=== PATIENT | male | born 1955 | race Caucasian/White ===

== ENCOUNTER 2021-11-21 16:03 | Emergency (ER) | payer MEDICARE, SELFPAY ==
[2021-11-21] VITALS (18 sets, daily range): BP systolic 146–181; BP diastolic 62–94; PULSE 66–80; RESP 13–25; TEMP 36.4; O2SAT 91–98
--- NOTE | ~2021-11-21 | CT_ITS ---
EXAMINATION: CT cervical spine wo con DATE: 11/21/2021 17:26 INDICATION: Fall. Neck injury. TECHNIQUE: Computed tomography (CT) of the cervical spine was performed without intravenous contrast. Automated exposure control and iterative reconstruction technique were employed. Exam dose: 503.35 mGy-cm total exam DLP. COMPARISON: 11/28/2008 cervical spine FINDINGS: Some mastoid effusions are noted on the right. Normally developed and aerated left mastoid air cells. There is reversal cervical curvature which may be due to muscle spasm. C1 and C2 are normally aligned and the odontoid process is intact. No fracture or dislocation or lock ed facet or prevertebral soft tissue swelling of the cervical spine. Mild degenerative disc disease at C2-3 and C3-4. Severe degenerative disc disease at C4-5, C5-6 and C6-7. Prominent bullous emphysema is noted at the lung apices. Bilateral apical fibrocalcific scarring.. IMPRESSION: Reversal cervical curvature which may be due to muscle spasm Multilevel degenerative disc disease, severe at C4-5, C5-6 and C6-7 Prominent bullous emphysema and fibrocalcific scarring is noted at the lung apices. Reviewed, dictated and finalized at [facility]. Reviewed, dictated and finalized at location B. IMPRESSION: Reversal cervical curvature which may be due to muscle spasm Multilevel degenerative disc disease, severe at C4-5, C5-6 and C6-7 Prominent bullous emphysema and fibrocalcific scarring is noted at the lung api idalia.
--- NOTE | ~2021-11-21 | CT_ITS ---
EXAMINATION: CT diagnostic chest wo con DATE: 11/21/2021 17:26 INDICATION: There is a density of right upper thorax reported on 11/21/2021 chest radiograph TECHNIQUE: Computed tomography (CT) of the chest was performed without intravenous contrast. Automate d exposure control and iterative reconstruction technique were employed. Exam dose: 395.23 mGy-cm to martinez exam DLP. COMPARISON: 11/21/2021 portable AP chest 11/28/2008 portable AP chest FINDINGS: There is prominent posterior right upper lobe irregular soft tissue thickening correspondin g to the abnormal density noted on the AP chest 11/21/2021. This irregular prominent asymmetric pleural-based soft tissue thickening measures almost 7 cm transverse dimension, up to approximately 2 cm anteroposterior dimension and is situated subjacen t to the right thoracotomy posterior fifth rib resection site. Differential diagnosis includes scarri ng versus pulmonary or pleural malignancy. Scarring is favored, as there is some calcification along the anterior margin of this soft tissue thickening. PET/CT scan is recommended. There is severe bullous emphysema of both lungs. There is fibrocalcific scarring at both lung apices. No pulmonary infiltrate or consolidation or other suspicious pulmonary pleural mass lesion is noted. Calcified left lower lobe pulmonary granulomas and calcified left hilar nodes, consistent with old pu lmonary granulomatous disease. Status post right upper lobectomy. Normal heart size. Coronary artery calcifications. No pericardial effusion. There is extensive thoracic aortic as well as great vessel calcifications. Thoracic aortic ectasia. T here is prominent calcification of the abdominal aorta and superior mesenteric and renal arteries. Numerous calcified splenic granulomas. Normal morphology of the adrenal glands. IMPRESSION: Prominent irregular asymmetric pleural-based soft tissue density at the posterior right u pper chest subjacent to right thoracotomy surgical site. Differential diagnosis includes scarring joni imer less likely pulmonary or pleural malignancy. PET/CT scan is recommended for further evaluation Status post right upper lobectomy Severe bullous emphysema Bilateral fibrocalcific apical scarring Aortic ectasia and calcification Reviewed, dictated and finalized at [facility]. Reviewed, dictated and finalized at location B. IMPRESSION: Prominent irregular asymmetric pleural-based soft tissue density at the posterior right upper chest subjacent to right thoracotomy surgical site. Differential diagnosis includes scarring versus less likely pulmonary or pleura l malignancy. PET/CT scan is recommended for further evaluation Status post right upper lobectomy Severe bullous emphysema Bilateral fibrocalcific apical scarring Aortic ectasia and calcification
--- NOTE | ~2021-11-21 | CT_ITS ---
CT OF pelvis EXAMINATION: CT pelvis wo con DATE: 11/21/2021 17:27 INDICATION: TECHNIQUE: Computed tomography (CT) of the pelvis was performed without intravenous contrast. Automat ed exposure control and iterative reconstruction technique were employed. The dose-length product was 249.14 mGy-cm. COMPARISON: X-ray right hip 11/21/2021, x-ray pelvis 11/28/2008 FINDINGS: Limitations: None Bones: Decreased bone mineral density. No fracture or dislocation. There are no erosive or destructiv e bony lesions. Soft Tissues:Extensive atherosclerotic calcifications. Diverticulosis without diverticulitis. No pelv ic lymphadenopathy Fluid: No significant fluid within the joint capsule or surrounding bursal spaces. IMPRESSION: No CT evidence of acute osseous fracture or dislocation in the pelvis or hips. Reviewed, dictated and finalized at location K.
--- NOTE | ~2021-11-21 | CT_ITS ---
EXAMINATION: CT brain wo con DATE: 11/21/2021 17:25 INDICATION: Head injury TECHNIQUE: Computed tomography (CT) of the head was performed without intravenous contrast. The mA wa s adjusted according to patient size. Iterative reconstruction technique was employed. Exam dose: 60 5.33 mGy-cm total exam DLP. COMPARISON: 11/28/2018 CT brain FINDINGS: Vertebral, basilar and carotid siphon internal carotid artery calcifications. There is nons pecific diminished attenuation of the cerebral white matter, likely due to chronic small vessel ische manohar changes. Chronic lacunar infarcts of right basal ganglia and erickson radiata, chronic, present on 11/28/2008. Ch ronic lacunar infarct and anterior limb of left internal capsule, not present on 11/28/2008. Moderate cerebral and cerebellar volume loss. Caval septum pellucidum and cavum birdie J, anatomic va riants. No intracranial mass lesion or hemorrhage or recent cerebrovascular accident is detected. No midline shift or mass effect effect. No subdural or epidural hematoma. No fracture or bone destruction of the cranial vault. Paranasal sinuses are normally developed and ae rated. Left mastoid air cells are normally developed and aerated. There are some mastoid effusions on the right. IMPRESSION: Chronic bilateral lacunar infarcts; no acute intracranial finding or hemorrhage No skull fracture Reviewed, dictated and finalized at [facility]. Reviewed, dictated and finalized at location B.
--- NOTE | ~2021-11-21 | XR_ITS ---
XR hip RT 2V w AP pelvis DATE: 11/21/2021 17:04 INDICATION: Fall. TECHNIQUE: AP pelvis. AP and crosstable lateral views of right hip COMPARISON: 11/28/2008 pelvis FINDINGS: Vascular stent overlies left common iliac artery. The pubic symphysis and sacroiliac joints are intact. No pelvic fracture or bone destruction. Mild os teoarthritis at the hip joints. No fracture or dislocation, avascular necrosis or bone destruction of the right hip is evident. IMPRESSION: No pelvic fracture or right hip fracture or dislocation Reviewed, dictated and finalized at location B.
--- NOTE | ~2021-11-21 | XR_ITS ---
XR chest 1V 11/21/2021 17:04 Indication: Status post fall. Chest pain. Procedure: AP view of the chest Comparison: 11/28/2008 Findings: There is a masslike density right upper thorax. There are surgical changes consistent with partial right pneumonectomy. Heart size normal. There is atherosclerosis and ectasia of the aorta. Th e lungs are hyperinflated which is consistent with, but not diagnostic of chronic obstructive pulmona ry disease. Ill-defined infiltrates of the right mid and lower lung may represent atelectasis/scarrin g or developing pneumonia. Impression: 1: Masslike density right upper thorax. Follow-up CT chest with contrast recommended. 2: Ill-defined infiltrates of the right mid and lower lung may represent atelectasis/scarring or pneu monia. Reviewed, dictated and finalized at location A. Impression: 1: Masslike density right upper thorax. Follow-up CT chest with contrast recomm ended. 2: Ill-defined infiltrates of the right mid and lower lung may represent atelec tasis/scarring or pneumonia.
--- NOTE | 2021-11-21 16:27 | ED.LOWEXIN ---
HPI - Extremity Injury (Lower) General Chief Complaint: Extremity Injury, Lower Stated Complaint: GLF, hip injury Time Seen by Provider: 11/21/21 16:03 History of Present Illness HPI Narrative: pt here after falling trying to get scooter set up says due to right leg slower from previous stroke, says hit head and neck pain and right hip pain but no new neuro chagnes/loc/nv/d/cp/sob/abd pain or urine issues Related Data Home Medications Medication Instructions Recorded Confirmed clonazepam 0.5 mg tablet mg 11/21/21 gabapentin 300 mg capsule mg 11/21/21 lisinopril 5 mg tablet mg 11/21/21 metoprolol tartrate 25 mg tablet mg 11/21/21 sertraline 100 mg tablet mg 11/21/21 simvastatin 20 mg tablet mg 11/21/21 tramadol 50 mg tablet mg 11/21/21 trazodone 50 mg tablet mg 11/21/21 11/21/21 Allergies Allergy/AdvReac Type Severity Reaction Status Date / Time atorvastatin Allergy Mild Swelling Verified 11/21/21 16:35 Review of Systems Constitutional: Comments: CONSTITUTIONAL: Denies fever, chills, or sweats. no loc EYES: Denies visual changes, redness, or discharge. ENT: Denies rhinorrhea, congestion, sore throat, or otalgia. CARDIOVASCULAR: Denies chest pain, palpitations, or edema. RESPIRATORY: Denies cough or dyspnea. GASTROINTESTINAL: Denies abdominal pain, nausea, vomiting, or diarrhea. GENITOURINARY: Denies dysuria or hematuria. SKIN: Denies rash or itching. MUSCULOSKELETAL: Denies back pain, has joint pain right hip and head and neck pain post groung level fall NEUROLOGIC: Denies headache, numbness, or weakness. PSYCHIATRIC: Denies anxiety or depression. Exam Const: Other: APPEARANCE: Well appearing, no pain in distress, well-nourished. Head normocephalic atraumtaic. no s/s swelling says hit head right side EYES: PERRLA/EOMI, conjunctivae very clear. NOSE: Normal no drainage EARS:TMS clear Mariely [place], with good light reflex. THROAT: Pharynx clear, no exudate. NECK: Supple. No adenopathy, no masses. difuse pain on palpation RESPIRATORY: Airway patent, repsirations nonlabored. Clear to auscultation bilaterally, no rales, rhonchi, wheezing. CARDIOVASCULAR: Regular rate and rhythm without murmurs rubs or gallops. ABDOMINAL: Soft, nontender, nondistended, no hepatosplenomegally MUSCULOSKELETAl: no back pain has right hip shortening and rotation and pain to palpation movement right hip no other joint deformities. Strenght/ROM intact minus old right le stroke deficit, No edema, No calf tenderness. NEURO: Alert. Cranial nerves II through XII intact. Good gait. Good coordination SKIN:: Warm, dry. Normal Color PSYCHIATRIC: Normal affect/mood, normal interaction with parents. Course Vital Signs Vital signs: Vital Signs Temperature 36.4 C L 11/21/21 16:08 Pulse Rate 80 11/21/21 16:08 Respiratory Rate 18 11/21/21 16:08 Blood Pressure 163/94 H 11/21/21 16:08 Pulse Oximetry 96 11/21/21 16:08 Oxygen Delivery Room Air 11/21/21 16:08 Temperature 36.4 C L 11/21/21 16:08 Pulse Rate 71 11/21/21 18:09 Respiratory Rate 18 11/21/21 18:09 Blood Pressure 167/70 H 11/21/21 18:09 Pulse Oximetry 98 11/21/21 18:09 Oxygen Delivery Room Air 11/21/21 16:08 MDM - Extremity Injury (Lower) Lab Data Result diagrams: 11/21/21 16:43 11/21/21 16:43 Labs: Lab Results 11/21/21 11/21/21 11/21/21 Range/Units 16:43 16:43 16:43 WBC 10.1 H (4.5-10.0) K/mm3 RBC 4.51 L (4.6-6.20) M/mm3 Hgb 13.2 L (14.0-18.0) g/dL Hct 40.2 L (42.0-52.0) % MCV 89.1 (80-100) fl MCH 29.3 (26-34) pg MCHC 32.8 (32-36) g/dl RDW 12.4 (11.5-14.5) % Plt Count 209 (150-375) k/mm3 MPV 11.1 H (7.4-10.4) fl Immature Gran % (Auto) 0.3 (0-0.5) % Neut % (Auto) 73.3 H (45.5-73.1) % Lymph % (Auto) 17.8 L (18.3-44.2) % [place] % (Auto) 7.0 (2.6-8.5) % Eos % (Auto) 0.9 (0-4.4) % Baso % (Auto) 0.7 (0.2-1.2) % Lymph # (Auto) 1.80 (0
--- NOTE | 2021-11-21 16:32 | ECG_ITS ---
Measurements Intervals [place] Rate: 67 P: 45 NM: 145 QRS: 11 QRSD: 90 T: 68 QT: 415 QTc: 439 Interpretive Statements SINUS RHYTHM MINOR NONSPECIFIC ST CHANGES NO PREVIOUS ECG AVAILABLE FOR COMPARISON Electronically Signed On 11-22-2021 18:11:07 CDT by Mary Bryant M.D.
[2021-11-21] MEDS: fentaNYL CITRATE INJ (*CRX) 100 MCG/2 ML VIAL 50 MCG IV PUSH (16:42)
[2021-11-21] MEDS: ONDANSETRON INJ 4 MG/2 ML VIAL IV PUSH (16:43)
[2021-11-21 16:50] LABS: Basophils Absolute Auto 0.1 K/mm3 (0.0-0.1); Basophils Percent Auto 0.7 % (0.2-1.2); Eosinophils Absolute Auto 0.1 K/mm3 (0-0.3); Eosinophils Percent Auto 0.9 % (0-4.4); Hematocrit 40.2 % (42.0-52.0); Hemoglobin 13.2 g/dL (14.0-18.0); Immature Granulocyte Absolute 0.03 K/mm3 (0.00-0.031); Immature Granulocyte Percent A 0.3 % (0-0.5); Lymphocytes Percent Auto 17.8 % (18.3-44.2); Mean Corpuscular HGB Conc 32.8 g/dl (32-36); Mean Corpuscular Hemoglobin 29.3 pg (26-34); Mean Corpuscular Volume 89.1 fl (80-100); Mean Platelet Volume 11.1 fl (7.4-10.4); Monocytes Absolute Auto 0.7 K/mm3 (0.1-0.6); Neutrophils Absolute Auto 7.4 K/mm3 (1.3-6.7); Neutrophils Percent Auto 73.3 % (45.5-73.1); Platelet Count Result 209 k/mm3 (150-375); Red Blood Count 4.51 M/mm3 (4.6-6.20); Red Cell Distribution Width 12.4 % (11.5-14.5); White Blood Count 10.1 K/mm3 (4.5-10.0)
[2021-11-21 16:59] LABS: INR 1.1
[2021-11-21 17:00] LABS: Partial Thromboplastin Time 29.7 SECONDS (22.3-36.8)
[2021-11-21 17:02] LABS: Alanine Aminotransferase 18 U/L (6-50); Albumin Level 4.3 g/dL (3.5-5.1); Alkaline Phosphatase 69 U/L (38-126); Anion Gap 7 mmol/L (8-16); Aspartate Amino Transferase 30 U/L (17-59); Bilirubin,Total 0.7 mg/dL (0.2-1.3); Blood Urea Nitrogen 21 mg/dL (9-20); Calcium 9.4 mg/dL (8.4-10.2); Carbon Dioxide 34 mmol/L (22-30); Chloride 95 mmol/L (98-107); Estimated CRCL calculation 76 ml/min; Estimated Glomerular Filt Rate > 60; Glucose 100 mg/dL (65-110); Potassium 3.6 mmol/L (3.4-5.0); Sodium 136 mmol/L (137-145)
--- NOTE | 2021-11-21 17:03 | PC.NURSE ---
Pt in CT at this time
[2021-11-21] MEDS: cefTRIAXone 2 GM in SODIUM CHLORIDE 0.9% IV 100 ML 200 ML IVPB (17:33)
[2021-11-21 18:13] LABS: SARS-CoV-2 RNA PCR Negative
--- NOTE | 2021-11-21 18:14 | PC.NURSE ---
Dr. Anderson wants to stop the azithromycin at this time since CT was negative
== END 2021-11-21 19:01 | disposition home or self-care (01) ==
PROVIDERS: Emergency Provider Emergency Medicine; PCP Family Medicine
DX: S09.90XA Unspecified injury of head, initial encounter (principal); S79.911A Unspecified injury of right hip, initial encounter; R91.8 Other nonspecific abnormal finding of lung field; Z20.822 Contact with and (suspected) exposure to COVID-19; I69.398 Other sequelae of cerebral infarction; M50.321 Other cervical disc degeneration at C4-C5 level; Z90.2 Acquired absence of lung [part of]; J43.9 Emphysema, unspecified; I77.819 Aortic ectasia, unspecified site; I70.0 Atherosclerosis of aorta; W01.0XXA Fall on same level from slipping, tripping and stumbling without subsequent striking against object, initial encounter
CPT/HCPCS: 36415; 70450; 71045; 71250; 72125; 72192; 73502; 80053; 85025; 85610; 85730; 86850; 86900; 86901; 93005; 96365; 96375; 99284; 99285; C9803; J0456; J0696; J2405; J3010; U0003; U0005

== ENCOUNTER 2022-02-24 15:14 | Inpatient (IN) | payer MEDICARE, SELFPAY ==
[2022-02-24] VITALS (9 sets, daily range): BP systolic 148–184; BP diastolic 63–82; PULSE 76–105; RESP 14–28; TEMP 36.7–37.1; O2SAT 96–100; BMI 20.6
--- NOTE | ~2022-02-24 | XR_ITS ---
EXAMINATION: XR barium swallow modified DATE: 03/01/2022 09:10 INDICATION: Aspiration. TECHNIQUE: The patient was given barium-containing material of multiple consistencies to swallow by t he speech pathologist while I performed fluoroscopy. Fluoroscopy exposure time was 2.0 minutes. The n umber of fluoroscopy images saved to the PACS was 1. Dose-area product was 1.482 Gy-cm^2. FINDINGS: There is reduced laryngeal elevation. There is trace penetration of uncontrolled thin liquids. IMPRESSION: 1. Trace penetration of uncontrolled thin liquids. 2. Please refer to the speech therapy report for recommendations. Reviewed, dictated and finalized at location A. E FIGHTER
--- NOTE | ~2022-02-24 | XR_ITS ---
XR chest 2V DATE: 02/24/2022 17:20 INDICATION: Shortness of breath, hemoptysis. History of COPD. TECHNIQUE: AP and lateral views COMPARISON: 11/21/2021 AP chest 11/21/2021 CT FINDINGS: There is bullous emphysema. There is prominent patchy consolidating infiltrate in the right mid and lower lung zones. There is a Ill-defined soft tissue density overlying the right upper lung, which may be due to pulmonary and/or pleural scarring or malignancy. Normal heart size. There is aortic calcification and tortuosity. Central pulmonary arteries are prominent, suggesting pulmonary hypertension. IMPRESSION: Bilateral patchy consolidating infiltrate of right mid and lower lung zone, suggesting pn eumonia or aspiration pneumonitis Ill-defined soft tissue density overlying right upper lung, which may be due to pulmonary or pleural scarring or malignancy Bullous emphysema Reviewed, dictated and finalized at location A. REL PATTERN MAKER IMPRESSION: Bilateral patchy consolidating infiltrate of right mid and lower lillie ng zone, suggesting pneumonia or aspiration pneumonitis Ill-defined soft tissue density overlying right upper lung, which may be due to pulmonary or pleural scarring or malignancy Bullous emphysema
--- NOTE | ~2022-02-24 | XR_ITS ---
EXAMINATION: XR chest 2V DATE: 02/27/2022 07:59 INDICATION: Hemoptysis. TECHNIQUE: Frontal and lateral views of the chest were obtained. COMPARISON: Chest 2 views 02/24/2022, chest CT 02/25/2022 FINDINGS: There is volume loss of right hemithorax with surgical changes at the hilum, consistent wit h right upper lobectomy. There are lucencies in the lungs, consistent with emphysema. There are airsp maria elena opacities in right lower lobe. There is a small right pleural effusion. No pneumothorax. The hear t size is normal. There is calcified atherosclerosis of the aorta, which is tortuous. IMPRESSION: 1. Mildly worsened airspace opacities in right lower lobe, consistent with pneumonia. 2. Small right pleural effusion. 3. Emphysema. 4. Right upper lobectomy. Reviewed, dictated and finalized at location [facility]. ICATIONS ENGINEER IMPRESSION: 1. Mildly worsened airspace opacities in right lower lobe, consistent with pneu monia. 2. Small right pleural effusion. 3. Emphysema. 4. Right upper lobectomy.
--- NOTE | ~2022-02-24 | CT_ITS ---
EXAMINATION: CTA chest PE protocol DATE: 02/25/2022 13:34 INDICATION: Shortness of breath TECHNIQUE: Computed tomography angiography (CTA) of the chest was performed with 100 mL Omnipaque-350 intravenous contrast timed to evaluate the pulmonary arteries. Coronal maximum intensity projection 3D-reconstructions were created by the technologist. Automated exposure control and iterative reconst ruction technique were employed. Exam dose: 341.61 mGy-cm total exam DLP. COMPARISON: 03/13/2022 AP and lateral chest 11/21/2021 CT chest FINDINGS: There is diagnostic contrast enhancement of the pulmonary arteries and no evidence of pulmo nary embolism. No thoracic aortic aneurysm. There is extensive atherosclerotic calcification of the thoracic aorta. No evidence of thoracic aortic dissection. No hilar or mediastinal mass lesion or lymphadenopathy. Heart size is within normal limits. There is left ventricular muscular hypertrophy. Coronary artery c alcifications. No pericardial or pleural effusion. There is severe bullous emphysema of the lungs. There is extensive patchy consolidation of the right lower lobe since 11/21/2021 consistent with right lower lobe pneumonia. Aspiration pneumonia would be a additional consideration. There is persistent posterior mid to upper pulmonary and pleural irregular soft tissue thickening; di ffusion diagnosis includes pulmonary pleural scarring versus pulmonary or pleural malignancy. There i s postoperative change in this region including partial resection of the lung and postthoracotomy guy nge of the posterior right fifth rib.. No suspicious osteolytic or osteoblastic lesions are noted. IMPRESSION: New patchy consolidation in the right lower lobe, likely due to pneumonia. Differential diagnosis includes aspiration pneumonia Irregular pulmonary and pleural SOFT tissue thickening subjacent to postoperative change of the right upper lobe and adjacent thoracotomy change of the posterior right fifth rib. The findings are likely chronic pulmonary and pleural scarring. Pulmonary or pleural malignancy are not excluded. Consider P ET/CT imaging Severe bullous emphysema Reviewed, dictated and finalized at [facility]. Reviewed, dictated and finalized at location [facility]. ING STATION ATTENDANT IMPRESSION: New patchy consolidation in the right lower lobe, likely due to pn eumonia. 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 The findings are likely chronic pulmonary and pleural scar ring. Pulmonary or pleural malignancy are not excluded. Consider PET/CT imaging Severe bullous emphysema
--- NOTE | ~2022-02-24 | XR_ITS ---
EXAMINATION: XR chest 1V portable DATE: 02/28/2022 09:39 INDICATION: Pneumonia. Hemoptysis. TECHNIQUE: A single frontal view of the chest was obtained on 2 radiographs. COMPARISON: Chest 2 views 02/27/2022 FINDINGS: There is volume loss of right hemithorax from right upper lobectomy. There are airspace opa cities in all right lung zones. There are lucencies in the lungs, consistent with emphysema. No pleur al effusion or pneumothorax. The heart size is normal. IMPRESSION: 1. Stable airspace opacities in all right lung zones, consistent with pneumonia. 2. Emphysema. 3. Right upper lobectomy. Reviewed, dictated and finalized at location [facility]. SUPPORT SPECIALIST IMPRESSION: 1. Stable airspace opacities in all right lung zones, consistent with pneumonia . 2. Emphysema. 3. Right upper lobectomy.
[2022-02-24 15:40] LABS: Basophils Percent Auto 0.2 % (0.2-1.2); Eosinophils Percent Auto 0.1 % (0-4.4); Hematocrit 38.2 % (42.0-52.0); Hemoglobin 12.8 g/dL (14.0-18.0); Immature Granulocyte Absolute 0.07 K/mm3 (0.00-0.031); Immature Granulocyte Percent A 0.4 % (0-0.5); Lymphocytes Absolute Auto 2.85 K/mm3 (0.9-3.2); Lymphocytes Percent Auto 17.4 % (18.3-44.2); Mean Corpuscular HGB Conc 33.5 g/dl (32-36); Mean Corpuscular Volume 89.5 fl (80-100); Mean Platelet Volume 11.4 fl (7.4-10.4); Monocytes Absolute Auto 1.3 K/mm3 (0.1-0.6); Monocytes Percent Auto 8.2 % (2.6-8.5); Neutrophils Absolute Auto 12.1 K/mm3 (1.3-6.7); Neutrophils Percent Auto 73.7 % (45.5-73.1); Platelet Count Result 230 k/mm3 (150-375); Red Blood Count 4.27 M/mm3 (4.6-6.20); Red Cell Distribution Width 12.5 % (11.5-14.5); White Blood Count 16.4 K/mm3 (4.5-10.0)
[2022-02-24 15:51] LABS: INR 1.1; Prothrombin Time 13.4 Seconds (11.1-14.7)
[2022-02-24 15:52] LABS: Alanine Aminotransferase 17 U/L (6-50); Albumin Level 4.6 g/dL (3.5-5.1); Alkaline Phosphatase 74 U/L (38-126); Anion Gap 15 mmol/L (8-16); Aspartate Amino Transferase 22 U/L (17-59); Bilirubin,Total 1.2 mg/dL (0.2-1.3); Blood Urea Nitrogen 21 mg/dL (9-20); Calcium 9.1 mg/dL (8.4-10.2); Carbon Dioxide 33 mmol/L (22-30); Chloride 93 mmol/L (98-107); Estimated CRCL calculation 48 ml/min; Estimated Glomerular Filt Rate 47; Glucose 115 mg/dL (65-110); Partial Thromboplastin Time 33.4 SECONDS (22.3-36.8); Sodium 141 mmol/L (137-145)
[2022-02-24] MEDS: ALBUTEROL SULFATE NEB 2.5 MG/3 ML INH 15 MG INHALATION (17:18)
[2022-02-24] MEDS: IPRATROPIUM BR 0.02% INH SOLN 0.5 MG/2.5 ML VIAL 1.5 MG INHALATION (17:18)
--- NOTE | 2022-02-24 18:17 | ED.GENADULT ---
HPI - General Adult General Chief complaint: GI Bleed Stated complaint: coughing up blood Time Seen by Provider: 02/24/22 16:38 History of Present Illness HPI narrative: Patient is a 67-year-old male who presents ER with hemoptysis. Ongoing for 2 days. Bright red and becoming more frequent. No bloody nose or sinus congestion. No weight loss. Denies history of lung cancer but has had partial pneumonectomy for pneumonia years ago. Continues to smoke. He has had no fevers or chills or sweats. No large mass on previous CT in November, he did have some areas that they felt were scarring but it was recommended he have a follow-up PET scan. Related Data Home Medications Medication Instructions Recorded Confirmed clonazepam 0.5 mg tablet mg 11/21/21 gabapentin 300 mg capsule mg 11/21/21 lisinopril 5 mg tablet mg 11/21/21 metoprolol tartrate 25 mg tablet mg 11/21/21 sertraline 100 mg tablet mg 11/21/21 simvastatin 20 mg tablet mg 11/21/21 tramadol 50 mg tablet mg 11/21/21 trazodone 50 mg tablet mg 11/21/21 11/21/21 Allergies Allergy/AdvReac Type Severity Reaction Status Date / Time atorvastatin Allergy Mild Swelling Verified 11/21/21 16:35 Review of Systems Review of Systems: All systems reviewed & are unremarkable except as noted in HPI and below Constitutional: Constitutional: Denies chills and Denies fever(s) ENT: Denies nasal congestion and Denies sore throat Cardiovascular: Cardiovascular: Denies chest pain, Denies rapid heart rate and Denies radiating jaw, neck or arm pain Respiratory: Respiratory: Reports cough and Reports dyspnea Comments: Hemoptysis Gastrointestinal: Gastrointestinal: Denies abdominal pain, Denies nausea and Denies vomiting Musculoskeletal: Musculoskeletal: Denies back pain and Denies myalgias Neurologic: Denies syncope, Denies headache(s) and Denies focal weakness [facility] Past Medical History Medical History (Updated 02/24/22 @ 18:23 by Joshua Tidwell MD) Bullous emphysema History of CVA (cerebrovascular accident) Myocardial infarction Surgical History Surgical History (Updated 02/24/22 @ 18:19 by Joshua Tidwell MD) History of percutaneous coronary intervention Hx of pneumonectomy Social History Social History (Updated 11/13/22 @ 18:19 by Joshua Tidwell MD) Smoking status: Current every day smoker Exam Narrative: GENERAL: Well-appearing, well-nourished, and in no acute distress. HEAD: Normocephalic, atraumatic. EYES: PERRL and EOMI. ENT: Mucous membranes moist. CHEST: Diminished lung sounds however when he starts coughing there is wheezing and some rales worse on the right versus the left. HEART: Regular rate and rhythm. Normal peripheral pulses. ABDOMEN: Soft, nontender, nondistended. EXTREMITIES: Normal range of motion. No edema. NEURO: Alert and oriented x3. PSYCH: Normal mood and affect. Course Course Emergency Course: Admit to hospitalist service. Will start on IV antibiotics. Vital Signs Vital signs: Vital Signs Temperature 98.2 F 02/24/22 15:23 Pulse Rate 97 02/24/22 15:23 Respiratory Rate 18 02/24/22 15:23 Blood Pressure 148/63 H 02/24/22 15:23 Pulse Oximetry 97 02/24/22 15:23 Oxygen Delivery Room Air 02/24/22 15:23 Temperature 98.2 F 02/24/22 15:23 Pulse Rate 105 H 02/24/22 19:00 Respiratory Rate 24 H 02/24/22 19:00 Blood Pressure 165/77 H 02/24/22 19:00 Pulse Oximetry 96 02/24/22 19:23 Oxygen Delivery Nasal Cannula 02/24/22 19:23 Oxygen Flow Rate 3 02/24/22 19:23 Medical Decision Making Vital Signs Vital Signs: Vital Signs Temperature 98.2 F 02/24/22 15:23 Pulse Rate 97 02/24/22 15:23 Respiratory Rate 18 02/24/22 15:23 Blood Pressure 148/63 H 02/24/22 15:23 Pulse Oximetry 97 02/24/22 15:23 Oxygen Delivery Room Air 02/24/22 15:23 Temperature 98.2 F 02/24/22 15:23 Pulse Rate 105 H 02/24/22 19:00 Respiratory Rate 24 H 02/24/22 19:00 Blood
--- NOTE | 2022-02-24 18:30 | PM.IMHP ---
H&P: HPI History of Present Illness Date/Time: 02/24/22 18:30 Chief Complaint: Coughing up blood. Narrative: This is a pleasant 67-year-old male, former heavy smoker, with history of partial pneumonectomy for lung infection in 1989, bullous emphysema, coronary artery disease with remote history of stents, hypertension, hyperlipidemia, and anxiety who presented to the emergency department from home for evaluation after he began coughing up blood a couple of days ago. He has not felt well for several days with cough productive of bright red and occasionally dark red blood, wheezing, generalized weakness, and poor appetite. He has never had similar symptoms in the past and he has no known history of malignancy or TB exposure. He denies sick contacts and reports that he and his rarely leaves the home. His weight has remained stable. He denies fever, chills, sweats, headache, neck ache, sinus congestion, sore throat, epistaxis, hematemesis, vomiting, chest pain, and pleuritic pain. He was afebrile on arrival to the emergency department and vital signs have been stable; in fact his blood pressures have been running higher than what they typically run. Labs today showed an elevated white blood cell count, mild hypokalemia, and elevated BUN and creatinine from baseline. He was negative for influenza and COVID. Chest x-ray showed patchy bilateral consolidating infiltrate of the right mid and lower lung zones suggesting pneumonia or aspiration pneumonitis and an ill-defined soft tissue density overlying the right upper lung which may be due to pulmonary or pleural scarring or malignancy. Similar findings were noted on previous imaging and PET scan was recommended for further evaluation. He is being admitted in this setting for IV antibiotics and pulmonary consultation. His breathing and wheezing are a lot better after receiving a continuous hour long nebulizer though he is now anxious and tremulous. Review of Systems Review of Systems: Twelve systems were reviewed and are negative except for as per HPI. [facility] Past Medical History Medical History (Updated 02/24/22 @ 22:13 by Demetria Gillis PA-C) Bullous emphysema Cerebrovascular accident X3 with resultant right-sided weakness. Chronic pain Smokes medical marijuana. Coronary artery disease Former heavy tobacco smoker Myocardial infarction Surgical History Surgical History (Updated 02/24/22 @ 22:09 by Demetria Gillis PA-C) History of appendectomy History of cardiac catheterization (2003) History of percutaneous coronary intervention (2003) History of pneumonectomy (1989) Family History Family History Father Hypertension Chronic obstructive pulmonary disease Mother Hypertension Chronic obstructive pulmonary disease Sibling Hypertension Social History Social History (Updated 02/24/22 @ 22:10 by Demetria Gillis PA-C) Social History: Surrogate medical decision maker: Ashlee Hyde, spouse. Code status: Full code. Smoking packs per day: 3 Smoking cigarettes per day: 60.0 Years smoked: 48 Smoking pack-years: 144.00 Smoking status: Former smoker Tobacco type: cigarettes Second hand tobacco smoke exposure: Yes Smoking end date: 02/24/15 Alcohol intake: never Substance use: current Substance use type: marijuana Other substance usage details: Smokes medical marijuana for pain. Last use: 02/22/22 Lack of Transportation: No Lack of Food: Never True Current Housing: I Have Housing Concerned About Future Housing: No Difficulty Paying Gas/Electric Bills: No Difficulty Paying for Meds: No Currently Unemployed: No Education: High School Diploma/GED Difficulty w/ Childcare or Family Care: No Living arrangements: with family Additional living arrangements comments: The patient lives with his in [place]. Additional occupation/education comments: Disabled, forme
[2022-02-24 19:03] LABS: Influenza A QL RT-PCR Negative (Negative); Influenza B QL RT-PCR Negative (Negative); SARS-CoV-2 RNA PCR Negative
--- NOTE | 2022-02-24 20:57 | PC.NURSE ---
Report to [facility] Soto. Pt on 3L O2 per nc. #20 SL inserted. ABX infusing.
--- NOTE | 2022-02-24 21:08 | ADMGEN ---
This patient, Trevor Hyde, was admitted to [facility] Surg Room 303-01. Patient/family oriented to hospital policies and general routines including ID bracelet, bed and alarms, visiting hours, pain management, procedures, bathroom and other care routines, personal items, smoking policy, room service/diet, and visiting hours. Information on how to activate the Rapid Response Team has been discussed. Patient/Family are encouraged to report perceived risks to care and to ask questions if they do not understand what they are told or what they should do.
[2022-02-24] MEDS: POTASSIUM CHLORIDE 20 MEQ PACKET (FOR LIQUID) 40 MEQ PO (23:06)
[2022-02-24] MEDS: SODIUM CHLORIDE 0.9% IV 1,000 ML 75 ML IV CONT (23:07)
[2022-02-25] VITALS (13 sets, daily range): BP systolic 156–186; BP diastolic 82–90; PULSE 87–106; RESP 18–26; TEMP 36.6–37.2; O2SAT 92–97
[2022-02-25] MEDS: HYDROcodone/acetaminophen (*CRX) 5-325 MG TABLET 1 TAB PO ×2 (00:36→07:55)
[2022-02-25] MEDS: IPRATROPIUM BR 0.02% INH SOLN 0.5 MG/2.5 ML VIAL INHALATION ×4 (02:29→20:31)
[2022-02-25] MEDS: ALBUTEROL SULFATE NEB 2.5 MG/3 ML INH INHALATION ×4 (02:29→20:31)
[2022-02-25 07:16] LABS: Hematocrit 34.1 % (42.0-52.0); Hemoglobin 11.6 g/dL (14.0-18.0); Mean Corpuscular Volume 88.1 fl (80-100); Mean Platelet Volume 11.5 fl (7.4-10.4); Platelet Count Result 189 k/mm3 (150-375); Red Blood Count 3.87 M/mm3 (4.6-6.20); Red Cell Distribution Width 12.2 % (11.5-14.5); White Blood Count 13.9 K/mm3 (4.5-10.0)
[2022-02-25 07:40] LABS: Alanine Aminotransferase 16 U/L (6-50); Albumin Level 4.2 g/dL (3.5-5.1); Alkaline Phosphatase 70 U/L (38-126); Anion Gap 11 mmol/L (8-16); Aspartate Amino Transferase 21 U/L (17-59); Bilirubin,Total 1.2 mg/dL (0.2-1.3); Blood Urea Nitrogen 17 mg/dL (9-20); CRP 7.5 mg/dL (<1.0); Calcium 8.5 mg/dL (8.4-10.2); Carbon Dioxide 33 mmol/L (22-30); Chloride 96 mmol/L (98-107); Estimated CRCL calculation 76 ml/min; Estimated Glomerular Filt Rate > 60; Glucose 109 mg/dL (65-110); Magnesium 1.7 mg/dL (1.6-2.3); Sodium 140 mmol/L (137-145)
--- NOTE | 2022-02-25 08:14 | PM.IMPN ---
Progress Note: A&P Assessment and Plan (1) Hemoptysis: Code(s): R04.2 - Hemoptysis Status: Acute Assessment and Plan: Suspect this is due to underlying pneumonia, cannot rule out malignancy versus COPD (2) Pneumonia: Code(s): J18.9 - Pneumonia, unspecified organism Status: Acute Assessment and Plan: Continue Rocephin and azithromycin, will complete 10 day course of antibiotics (3) Acute kidney injury: Code(s): N17.9 - Acute kidney failure, unspecified Status: Acute Assessment and Plan: Resolved (4) Dehydration: Code(s): E86.0 - Dehydration Status: Acute Assessment and Plan: Resolved (5) Hypokalemia: Code(s): E87.6 - Hypokalemia Status: Acute Assessment and Plan: Replete and recheck (6) Coronary artery disease: Code(s): I25.10 - Atherosclerotic heart disease of [place] coronary artery without angina pectoris Status: Acute Assessment and Plan: Stable (7) Lung mass: Code(s): R91.8 - Other nonspecific abnormal finding of lung field Status: Acute Assessment and Plan: Appreciate pulmonology consultation CTA pending (8) COPD (chronic obstructive pulmonary disease): Code(s): J44.9 - Chronic obstructive pulmonary disease, unspecified Status: Acute (9) Former heavy tobacco smoker: Code(s): Z87.891 - Personal history of nicotine dependence Status: Acute Plan DVT prophylaxis with SCDs GI prophylaxis not indicated Code status full code Subjective Date/time seen: 02/25/22 08:14 Interval history: No overnight events noted. No chest pain or shortness of breath. No nausea, vomiting or diarrhea. No fevers or chills. Admits to continued hemoptysis. Review of Systems Review of Systems: 12 point review of systems was assessed and was negative except as noted in the HPI Exam Narrative: General: No acute distress, alert and oriented per baseline HEENT: Atraumatic, normocephalic, mucous membranes moist CV: Regular rate and rhythm, S1, S2 Lungs: Clear to auscultation bilaterally, no rales or crackles noted, no wheezes, good air entry Abdomen: Soft, nontender, nondistended Extremities: Normal to inspection Skin: No rashes noted, no lesions or wounds seen Psych: Euthymic, normal affect Objective Data Vital Signs Vital Signs: Vital Signs - 24 hr 02/24/22 15:23 02/24/22 17:21 02/24/22 18:30 Temperature 98.2 F Pulse Rate 97 76 87 Respiratory Rate 18 16 17 Blood Pressure 148/63 H Pulse Oximetry 97 Oxygen Delivery Room Air Oxygen Flow Rate 02/24/22 17:00 02/24/22 18:00 02/24/22 19:00 Temperature Pulse Rate 78 82 105 H Respiratory Rate 16 14 24 H Blood Pressure 169/64 H 184/74 H 165/77 H Pulse Oximetry 100 100 98 Oxygen Delivery Oxygen Flow Rate 02/24/22 19:23 02/24/22 20:48 02/24/22 21:58 Temperature 98.1 F 98.7 F Pulse Rate 97 100 Respiratory Rate 22 H 28 H Blood Pressure 164/82 H 148/76 H Pulse Oximetry 96 97 100 Oxygen Delivery Nasal Cannula Oxygen Flow Rate 3 02/25/22 02:29 02/25/22 02:45 02/25/22 05:59 Temperature 97.8 F Pulse Rate 88 90 88 Respiratory Rate 18 20 22 H Blood Pressure 165/90 H Pulse Oximetry 96 Oxygen Delivery Oxygen Flow Rate 02/25/22 07:48 02/25/22 07:48 02/25/22 08:00 Temperature Pulse Rate 87 90 Respiratory Rate 20 20 Blood Pressure Pulse Oximetry 97 Oxygen Delivery Nasal Cannula Oxygen Flow Rate 2 Intake/Output Intake/Output: Intake & Output 02/22/22 02/23/22 02/24/22 02/25/22 23:59 23:59 23:59 23:59 Output Total 2 Balance -2 Meds/Results Medications: Active Medications Generic Name Dose Route Start Last Admin Trade Name Freq PRN Reason Stop Dose Admin Acetaminophen 650 mg 02/24/22 18:07 Acetaminophen 325 Mg Tablet PO Q4H PRN Mild Pain (1-3) or Fever Hydrocodone Bitart/Acetaminophen
[2022-02-25 09:35] LABS: D Dimer 0.58 ug/mL (<0.48)
[2022-02-25] MEDS: SODIUM CHLORIDE 0.9% IV 1,000 ML 75 ML IV CONT (11:51)
--- NOTE | 2022-02-25 13:20 | PM.CNPUL ---
Assessment and Plan Assessment and plan (1) COPD (chronic obstructive pulmonary disease): Code(s): J44.9 - Chronic obstructive pulmonary disease, unspecified Status: Acute Assessment and Plan: The patient has severe apical greater than basilar predominant panlobular emphysema on his CT scan from 11/21/2021 and is a former smoker with 120 pack years, quit 2015. currently is not wheezing and I will continue albuterol and ipratropium nebulizers Q 6 hours at this time. He is currently on room air with saturations 92%. (2) Hemoptysis: Code(s): R04.2 - Hemoptysis Status: Acute Assessment and Plan: patient with a history of COPD with severe apical greater than basilar panlobular emphysema and a 7 cm pleural based nodule -mass on 11/21/2021. He currently presents with 2 days history of an acute illness characterized by hemoptysis, shortness of breath, cough, shakes and anorexia with a leukocytosis of 16.4, a creatinine of 1.50 and infiltrate on his chest x-ray in the right mid and lower lobe area. COVID RT PCR negative, influenza swab negative. The etiology of his hemoptysis includes community-acquired pneumonia, lung cancer, COPD, pulmonary embolism. I agree with ceftriaxone and azithromycin for community-acquired pneumonia coverage. Patient has a positive D-dimer and I will obtain a CT angiogram of the chest. This will also enable us to assess his 7 cm pleural based right lung mass from 11/21/2021. The patient does have COPD but he has no wheezing and I do not feel he is in a COPD exacerbation at this time. (3) Lung mass: Code(s): R91.8 - Other nonspecific abnormal finding of lung field Status: Acute Assessment and Plan: 11/21/2021. This irregular prominent asymmetric pleural-based soft tissue thickening measures almost 7 cm transverse dimension, up to approximately 2 cm anteroposterior dimension and is situated subjacent to the right thoracotomy posterior fifth rib resection site. Differential diagnosis includes scarring versus pulmonary or pleural malignancy. Scarring is favored, as there is some calcification along the anterior margin of this soft tissue thickening. PET/CT scan is recommended. Patient has a smoking history, no history of lung cancer in his family. Will obtain a CT angiogram of the chest to reassess this lesion. Discussed with Dr. Maza, will follow with you History of Present Illness History of Present Illness Consult date: 02/25/22 Chief complaint: pneumonia,hemoptysis Narrative: 02/25/2022: This is a new pulmonary consultation for hemoptysis. 67-year-old man with a history of pneumonia status post right upper lobectomy 1989, CVA 2014 at has left him immobile, coronary artery disease status post RI and stent, hypertension, hyperlipidemia, tobacco use, 120 pack years, quit 2014 and COPD. The patient was noted to have a 7 cm transverse dimension pleural based opacity adjacent to his right thoracotomy site. On 11/21/2021. CT PET was recommended. Patient has COPD for many years. He intermittently has wheezing, he uses an electric scooter for mobility. He smoked tobacco from age [age] at 2 and half packs per day. He has no vaping or illicit drug use. He denies sample lasting, welding, asbestos work, professional painting or steel millwright. He has no current secondhand exposure but was exposed to secondhand smoke from his mother. 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 He is not on home oxygen and has no listed home inhaled medicines. Patient was in his usual state until 2 days ago when he developed cough, shortness of breath, anorexia, wheezes, shakes and hemoptysis. Symptoms progressed and he presented to the emergency department on 02/24/2022. His room air saturations were listed as 97%, had decreased breath sounds, wheezes, rale try to the greater than left and improved with nebulizers. Chest x-ray showed emphysema with a right mid and lower lung infiltr
[2022-02-25] MEDS: ASPIRIN 81 MG ENTERIC TABLET PO (16:05)
[2022-02-25] MEDS: lisinopriL 5 MG TABLET PO (16:05)
[2022-02-25] MEDS: clonazePAM (*CRX) 0.5 MG TABLET PO (16:05)
[2022-02-25] MEDS: SIMVASTATIN 20 MG TABLET PO (16:07)
[2022-02-25] MEDS: METOPROLOL TARTRATE 12.5 MG TABLET PO ×2 (16:07→21:41)
[2022-02-25] MEDS: SERTRALINE HCL 50 MG TABLET 100 MG PO (16:08)
[2022-02-25] MEDS: POTASSIUM CHLORIDE 20 MEQ TABLET 40 MEQ PO (19:28)
[2022-02-25] MEDS: POTASSIUM CHLORIDE INJ 40 MEQ in SODIUM CHLORIDE 0.9% IV 500 ML 130 MEQ IVPB (19:30)
[2022-02-25] MEDS: ACETAMINOPHEN 325 MG TABLET 650 MG PO (21:42)
[2022-02-25] MEDS: GABAPENTIN 300 MG CAPSULE PO (21:42)
[2022-02-25] MEDS: traMADol HCL (*CRX) 50 MG TABLET PO (21:43)
[2022-02-25] MEDS: traZODone HCL 50 MG TABLET PO (21:43)
[2022-02-26] VITALS (14 sets, daily range): BP systolic 127–152; BP diastolic 63–73; PULSE 71–90; RESP 14–20; TEMP 36.7–37.1; O2SAT 90–97
[2022-02-26] MEDS: traMADol HCL (*CRX) 50 MG TABLET PO ×3 (05:52→21:22)
[2022-02-26] MEDS: IPRATROPIUM BR 0.02% INH SOLN 0.5 MG/2.5 ML VIAL INHALATION ×3 (08:03→20:31)
[2022-02-26] MEDS: ALBUTEROL SULFATE NEB 2.5 MG/3 ML INH INHALATION ×3 (08:04→20:31)
[2022-02-26] MEDS: clonazePAM (*CRX) 0.5 MG TABLET PO (08:35)
[2022-02-26] MEDS: ASPIRIN 81 MG ENTERIC TABLET PO (08:36)
[2022-02-26] MEDS: SERTRALINE HCL 50 MG TABLET 100 MG PO (08:36)
[2022-02-26] MEDS: METOPROLOL TARTRATE 12.5 MG TABLET PO ×2 (08:36→20:21)
[2022-02-26] MEDS: lisinopriL 5 MG TABLET PO (08:37)
[2022-02-26] MEDS: SIMVASTATIN 20 MG TABLET PO (08:37)
[2022-02-26] MEDS: HYDROcodone/acetaminophen (*CRX) 5-325 MG TABLET 1 TAB PO ×2 (08:38→17:34)
--- NOTE | 2022-02-26 09:45 | PM.PNPUL ---
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 currently is not wheezing and I will continue albuterol and ipratropium nebulizers Q 6 hours at this time. He is currently on room air with saturations 92%. 02/26 No wheezes on albuterol and ipratropium nebulizers Q 6 hours. (2) Hemoptysis: Code(s): R04.2 - Hemoptysis Status: Acute Assessment and Plan: patient with a history of COPD with severe apical greater than basilar panlobular emphysema and a 7 cm pleural based nodule -mass on 11/21/2021. He currently presents with 2 days history of an acute illness characterized by hemoptysis, shortness of breath, cough, shakes and anorexia with a leukocytosis of 16.4, a creatinine of 1.50 and infiltrate on his chest x-ray in the right mid and lower lobe area. COVID RT PCR negative, influenza swab negative. The etiology of his hemoptysis includes community-acquired pneumonia, lung cancer, COPD, pulmonary embolism. I agree with ceftriaxone and azithromycin for community-acquired pneumonia coverage. Patient has a positive D-dimer and I will obtain a CT angiogram of the chest. This will also enable us to assess his 7 cm pleural based right lung mass from 11/21/2021. The patient does have COPD but he has no wheezing and I do not feel he is in a COPD exacerbation at this time. CT angiogram of the chest negative for PE does show pneumonia and stable soft tissue thickening next to his right upper lobe thoracotomy area. 02/26 Overall the patient feels slightly better is he was able to sleep last night and he is appetite has returned and he is eating breakfast. He says he feels 50% back to his normal. He is now on room air with saturations 92%. He continues with the same amount of cough and hemoptysis about 1 expect duration every 2 hours. His white blood cell count is 13.9, he is afebrile. Blood cultures are negative, sputum cultures mixed reji. Patient with continued hemoptysis and will change his antibiotics to cover resistant organisms as well as Pseudomonas with vancomycin, Zosyn and Levaquin. Will check coags in the morning. Will check chest x-ray in the morning. (3) Lung mass: Code(s): R91.8 - Other nonspecific abnormal finding of lung field Status: Acute Assessment and Plan: 11/21/2021. This irregular prominent asymmetric pleural-based soft tissue thickening measures almost 7 cm transverse dimension, up to approximately 2 cm anteroposterior dimension and is situated subjacent to the right thoracotomy posterior fifth rib resection site. Differential diagnosis includes scarring versus pulmonary or pleural malignancy. Scarring is favored, as there is some calcification along the anterior margin of this soft tissue thickening. PET/CT scan is recommended. Patient has a smoking history, no history of lung cancer in his family. Will obtain a CT angiogram of the chest to reassess this lesion. 02/26 CT scan yesterday shows continued abnormality next to his right thoracotomy resection which is stable since 11/21. Will Need outpatient short-term follow-up Ct scan and or PET-CT. Discussed with Dr. Maza, will follow with you Subjective Date/time seen: 02/26/22 09:45 Interval history: 02/25/2022:? This is a new pulmonary consultation for hemoptysis.? 67-year-old man with a history of pneumonia status post right upper lobectomy 1989, CVA 2014 at has left him immobile, coronary artery disease status post [place] and stent, hypertension, hyperlipidemia,? tobacco use, 120 pack years, quit 2014 and COPD. ? ? The patient was noted to have a 7 cm transverse dimension pleural based o
--- NOTE | 2022-02-26 10:01 | PM.IMPN ---
Progress Note: A&P Assessment and Plan (1) Hemoptysis: Code(s): R04.2 - Hemoptysis Status: Acute Assessment and Plan: Suspect this is due to underlying pneumonia, cannot rule out malignancy versus COPD Worsening, concern for pulmonary hemorrhage is high, if hemoptysis does not improve on escalated antibiotics, will need to arrange transfer to higher level of care Check coags, monitor hemoglobin (2) Pneumonia: Code(s): J18.9 - Pneumonia, unspecified organism Status: Acute Assessment and Plan: Symptoms worsening, will broaden coverage to IV vancomycin, Zosyn and Levaquin for double Pseudomonas coverage, discontinue Rocephin and azithromycin (3) Acute kidney injury: Code(s): N17.9 - Acute kidney failure, unspecified Status: Acute Assessment and Plan: Resolved (4) Dehydration: Code(s): E86.0 - Dehydration Status: Acute Assessment and Plan: Resolved (5) Hypokalemia: Code(s): E87.6 - Hypokalemia Status: Acute Assessment and Plan: Replete and recheck (6) Coronary artery disease: Code(s): I25.10 - Atherosclerotic heart disease of [place] coronary artery without angina pectoris Status: Acute Assessment and Plan: Stable (7) Lung mass: Code(s): R91.8 - Other nonspecific abnormal finding of lung field Status: Acute Assessment and Plan: Appreciate pulmonology consultation CTA showed right lower lobe pneumonia, severe bolus emphysema, cannot rule out malignancy (8) COPD (chronic obstructive pulmonary disease): Code(s): J44.9 - Chronic obstructive pulmonary disease, unspecified Status: Acute (9) Former heavy tobacco smoker: Code(s): Z87.891 - Personal history of nicotine dependence Status: Acute Plan DVT prophylaxis with SCDs GI prophylaxis not indicated Code status full code Subjective Date/time seen: 02/26/22 10:01 Interval history: No overnight events noted. No chest pain or shortness of breath. No nausea, vomiting or diarrhea. No fevers or chills. Still coughing up blood, appears about the same as yesterday per patient report. Review of Systems Review of Systems: 12 point review of systems was assessed and was negative except as noted in the HPI Exam Narrative: General: No acute distress, alert and oriented per baseline HEENT: Atraumatic, normocephalic, mucous membranes moist CV: Regular rate and rhythm, S1, S2 Lungs: Clear to auscultation bilaterally, no rales or crackles noted, no wheezes, good air entry Abdomen: Soft, nontender, nondistended Extremities: Normal to inspection Skin: No rashes noted, no lesions or wounds seen Psych: Euthymic, normal affect Objective Data Vital Signs Vital Signs: Vital Signs - 24 hr 02/25/22 11:47 02/25/22 14:32 02/25/22 16:07 Temperature Pulse Rate 95 106 H Respiratory Rate 20 Blood Pressure Pulse Oximetry 92 Oxygen Delivery Room Air Oxygen Flow Rate 02/25/22 14:00 02/25/22 20:32 02/25/22 20:32 Temperature 99 F Pulse Rate 101 H 104 H 104 H Respiratory Rate 26 H 20 Blood Pressure 186/83 H Pulse Oximetry 92 96 Oxygen Delivery Nasal Cannula Oxygen Flow Rate 3 02/25/22 20:39 02/25/22 21:41 02/25/22 22:00 Temperature 98.8 F Pulse Rate 97 104 H 104 H Respiratory Rate 20 18 Blood Pressure 156/82 H Pulse Oximetry 97 Oxygen Delivery Oxygen Flow Rate 02/26/22 06:00 02/26/22 08:05 02/26/22 08:06 Temperature 98.0 F Pulse Rate 72 71 Respiratory Rate 16 18 Blood Pressure 152/66 H Pulse Oximetry 97 92 Oxygen Delivery Room Air Oxygen Flow Rate 02/26/22 08:18 02/26/22 08:36 Temperature Pulse Rate 75 78 Respiratory Rate 18 Blood Pressure Pulse Oximetry Oxygen Delivery Oxygen Flow Rate Intake/Output Intake/Output: Intake & Output 02/23/22 02/24/22 02/25/22 02/26/22 23:59 23:59 23:59 23:59 Intake Total 2
[2022-02-26 10:21] LABS: Alanine Aminotransferase 17 U/L (6-50); Alkaline Phosphatase 70 U/L (38-126); Anion Gap 11 mmol/L (8-16); Aspartate Amino Transferase 29 U/L (17-59); Bilirubin,Total 0.9 mg/dL (0.2-1.3); Blood Urea Nitrogen 16 mg/dL (9-20); Calcium 8.6 mg/dL (8.4-10.2); Carbon Dioxide 31 mmol/L (22-30); Chloride 101 mmol/L (98-107); Estimated CRCL calculation 70 ml/min; Estimated Glomerular Filt Rate > 60; Glucose 93 mg/dL (65-110); Potassium 3.1 mmol/L (3.4-5.0); Sodium 143 mmol/L (137-145)
[2022-02-26 10:29] LABS: INR 1.2; Prothrombin Time 14.8 Seconds (11.1-14.7)
[2022-02-26 10:31] LABS: Basophils Absolute Auto 0.1 K/mm3 (0.0-0.1); Basophils Percent Auto 0.4 % (0.2-1.2); Eosinophils Absolute Auto 0.1 K/mm3 (0-0.3); Eosinophils Percent Auto 1.1 % (0-4.4); Hematocrit 35.1 % (42.0-52.0); Hemoglobin 11.3 g/dL (14.0-18.0); Immature Granulocyte Absolute 0.04 K/mm3 (0.00-0.031); Immature Granulocyte Percent A 0.3 % (0-0.5); Lymphocytes Absolute Auto 2.62 K/mm3 (0.9-3.2); Lymphocytes Percent Auto 21.8 % (18.3-44.2); Mean Corpuscular HGB Conc 32.2 g/dl (32-36); Mean Corpuscular Volume 93.1 fl (80-100); Mean Platelet Volume 11.8 fl (7.4-10.4); Monocytes Absolute Auto 1.1 K/mm3 (0.1-0.6); Monocytes Percent Auto 8.8 % (2.6-8.5); Neutrophils Absolute Auto 8.1 K/mm3 (1.3-6.7); Neutrophils Percent Auto 67.6 % (45.5-73.1); Platelet Count Result 205 k/mm3 (150-375); Red Blood Count 3.77 M/mm3 (4.6-6.20); Red Cell Distribution Width 12.8 % (11.5-14.5)
[2022-02-26] MEDS: PIPERACILLIN/TAZOBACTAM SOD 4.5 GM in SODIUM CHLORIDE 0.9% IV 100 ML 200 ML IVPB ×2 (13:18→17:41)
[2022-02-26] MEDS: SODIUM CHLORIDE 0.9% IV 1,000 ML 75 ML IV CONT (15:51)
[2022-02-26] MEDS: traZODone HCL 50 MG TABLET PO (20:22)
[2022-02-26] MEDS: GABAPENTIN 300 MG CAPSULE PO (20:22)
[2022-02-27] VITALS (14 sets, daily range): BP systolic 149–166; BP diastolic 76–81; PULSE 78–89; RESP 16–24; TEMP 36.5–37.3; O2SAT 93–99
[2022-02-27] MEDS: PIPERACILLIN/TAZOBACTAM SOD 4.5 GM in SODIUM CHLORIDE 0.9% IV 100 ML 200 ML IVPB ×4 (00:59→17:19)
[2022-02-27] MEDS: ALBUTEROL SULFATE NEB 2.5 MG/3 ML INH INHALATION ×4 (02:28→19:19)
[2022-02-27] MEDS: IPRATROPIUM BR 0.02% INH SOLN 0.5 MG/2.5 ML VIAL INHALATION ×4 (02:28→19:19)
[2022-02-27 06:07] LABS: Basophils Absolute Auto 0.1 K/mm3 (0.0-0.1); Basophils Percent Auto 0.5 % (0.2-1.2); Eosinophils Absolute Auto 0.3 K/mm3 (0-0.3); Eosinophils Percent Auto 2.1 % (0-4.4); Hematocrit 31.4 % (42.0-52.0); Hemoglobin 10.3 g/dL (14.0-18.0); Immature Granulocyte Absolute 0.06 K/mm3 (0.00-0.031); Immature Granulocyte Percent A 0.5 % (0-0.5); Lymphocytes Absolute Auto 1.65 K/mm3 (0.9-3.2); Lymphocytes Percent Auto 13.3 % (18.3-44.2); Mean Corpuscular HGB Conc 32.8 g/dl (32-36); Mean Corpuscular Hemoglobin 29.5 pg (26-34); Mean Platelet Volume 11.5 fl (7.4-10.4); Monocytes Absolute Auto 0.9 K/mm3 (0.1-0.6); Monocytes Percent Auto 7.5 % (2.6-8.5); Neutrophils Absolute Auto 9.5 K/mm3 (1.3-6.7); Neutrophils Percent Auto 76.1 % (45.5-73.1); Platelet Count Result 204 k/mm3 (150-375); Red Blood Count 3.49 M/mm3 (4.6-6.20); Red Cell Distribution Width 12.5 % (11.5-14.5); White Blood Count 12.4 K/mm3 (4.5-10.0)
[2022-02-27 06:17] LABS: INR 1.2; Prothrombin Time 14.9 Seconds (11.1-14.7)
[2022-02-27 06:21] LABS: Alanine Aminotransferase 19 U/L (6-50); Albumin Level 3.7 g/dL (3.5-5.1); Alkaline Phosphatase 62 U/L (38-126); Anion Gap 12 mmol/L (8-16); Aspartate Amino Transferase 28 U/L (17-59); Bilirubin,Total 0.9 mg/dL (0.2-1.3); Blood Urea Nitrogen 12 mg/dL (9-20); Calcium 8.3 mg/dL (8.4-10.2); Carbon Dioxide 29 mmol/L (22-30); Chloride 99 mmol/L (98-107); Estimated CRCL calculation 70 ml/min; Estimated Glomerular Filt Rate > 60; Glucose 101 mg/dL (65-110); Potassium 3.1 mmol/L (3.4-5.0); Sodium 140 mmol/L (137-145)
[2022-02-27] MEDS: traMADol HCL (*CRX) 50 MG TABLET PO ×3 (06:21→21:00)
[2022-02-27] MEDS: SODIUM CHLORIDE 0.9% IV 1,000 ML 75 ML IV CONT (09:24)
[2022-02-27] MEDS: SERTRALINE HCL 50 MG TABLET 100 MG PO (09:25)
[2022-02-27] MEDS: SIMVASTATIN 20 MG TABLET PO (09:25)
[2022-02-27] MEDS: METOPROLOL TARTRATE 12.5 MG TABLET PO ×2 (09:25→20:59)
[2022-02-27] MEDS: clonazePAM (*CRX) 0.5 MG TABLET PO (09:34)
[2022-02-27] MEDS: lisinopriL 5 MG TABLET PO (09:34)
--- NOTE | 2022-02-27 09:40 | PM.PNPUL ---
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 currently is not wheezing and I will continue albuterol and ipratropium nebulizers Q 6 hours at this time. He is currently on room air with saturations 92%. 02/26 No wheezes on albuterol and ipratropium nebulizers Q 6 hours. 02/27 I will switch him to albuterol and ipratropium nebulizers q.4 hours while awake (2) Hemoptysis: Code(s): R04.2 - Hemoptysis Status: Acute Assessment and Plan: patient with a history of COPD with severe apical greater than basilar panlobular emphysema and a 7 cm pleural based nodule -mass on 11/21/2021. He currently presents with 2 days history of an acute illness characterized by hemoptysis, shortness of breath, cough, shakes and anorexia with a leukocytosis of 16.4, a creatinine of 1.50 and infiltrate on his chest x-ray in the right mid and lower lobe area. COVID RT PCR negative, influenza swab negative. The etiology of his hemoptysis includes community-acquired pneumonia, lung cancer, COPD, pulmonary embolism. I agree with ceftriaxone and azithromycin for community-acquired pneumonia coverage. Patient has a positive D-dimer and I will obtain a CT angiogram of the chest. This will also enable us to assess his 7 cm pleural based right lung mass from 11/21/2021. The patient does have COPD but he has no wheezing and I do not feel he is in a COPD exacerbation at this time. CT angiogram of the chest negative for PE does show pneumonia and stable soft tissue thickening next to his right upper lobe thoracotomy area. 02/26 Overall the patient feels slightly better is he was able to sleep last night and he is appetite has returned and he is eating breakfast. He says he feels 50% back to his normal. He is now on room air with saturations 92%. He continues with the same amount of cough and hemoptysis about 1 expect duration every 2 hours. His white blood cell count is 13.9, he is afebrile. Blood cultures are negative, sputum cultures mixed reji. Patient with continued hemoptysis and will change his antibiotics to cover resistant organisms as well as Pseudomonas with vancomycin, Zosyn and Levaquin. Will check coags in the morning. Will check chest x-ray in the morning. 02/27 patient states he has improved. He states he is 60% back to his baseline. His breathing is better. He says maybe he is coughing less but he still continues with hemoptysis. His white blood cell count is 12.4, his creatinine is 1.0, he is afebrile, he is on 1 L nasal cannula saturations 92%. Chest x-ray with some areas of improvement and some areas more confluent infiltrate in the right lower lobe. INR is 1.2. day 3 antibiotics total and day 2 of vanc, Zosyn, and Levaquin (3) Lung mass: Code(s): R91.8 - Other nonspecific abnormal finding of lung field Status: Acute Assessment and Plan: 11/21/2021. This irregular prominent asymmetric pleural-based soft tissue thickening measures almost 7 cm transverse dimension, up to approximately 2 cm anteroposterior dimension and is situated subjacent to the right thoracotomy posterior fifth rib resection site. Differential diagnosis includes scarring versus pulmonary or pleural malignancy. Scarring is favored, as there is some calcification along the anterior margin of this soft tissue thickening. PET/CT scan is recommended. Patient has a smoking history, no history of lung cancer in his family. Will obtain a CT angiogram of the chest to reassess this lesion. 02/26 CT scan yesterday shows continued abnormality next to his right thoracotomy resection which is stable since 11/21. Wi
--- NOTE | 2022-02-27 14:24 | PM.IMPN ---
Progress Note: A&P Assessment and Plan (1) Hemoptysis: Code(s): R04.2 - Hemoptysis Status: Acute Assessment and Plan: Suspect this is due to underlying pneumonia, cannot rule out malignancy versus COPD Worsening, concern for pulmonary hemorrhage is high, if hemoptysis does not improve on escalated antibiotics, will need to arrange transfer to higher level of care Coag paraMeter okay platelets are normal (2) Pneumonia: Code(s): J18.9 - Pneumonia, unspecified organism Status: Acute Assessment and Plan: Symptoms worsening, broaden coverage is with IV vancomycin, Zosyn and Levaquin for double Pseudomonas coverage, discontinue Rocephin and azithromycin which was initially started WBC count 16,000 on admission Mycoplasma pending Legionella pending Pneumococcal pending Influenza and COVID negative (3) Acute kidney injury: Code(s): N17.9 - Acute kidney failure, unspecified Status: Acute Assessment and Plan: mild QUAN on admission 1.5 Resolved (4) Dehydration: Code(s): E86.0 - Dehydration Status: Acute Assessment and Plan: Resolved (5) Hypokalemia: Code(s): E87.6 - Hypokalemia Status: Acute Assessment and Plan: Replete and recheck (6) Coronary artery disease: Code(s): I25.10 - Atherosclerotic heart disease of [place] coronary artery without angina pectoris Status: Acute Assessment and Plan: Stable (7) Lung mass: Code(s): R91.8 - Other nonspecific abnormal finding of lung field Status: Acute Assessment and Plan: Appreciate pulmonology consultation CTA showed right lower lobe pneumonia, severe bolus emphysema, cannot rule out malignancy (8) COPD (chronic obstructive pulmonary disease): Code(s): J44.9 - Chronic obstructive pulmonary disease, unspecified Status: Acute Assessment and Plan: 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d Adson thoracotomy change of the posterior right 5th rib. These findings are likely chronic pulmonary and pleural scar. Per CT chest 02/25/2022 Alpha 1 antitrypsin level ordered which is pending Will stop IV fluids (9) Former heavy tobacco smoker: Code(s): Z87.891 - Personal history of nicotine dependence Status: Acute Plan status post right upper lobectomy DVT prophylaxis with SCDs GI prophylaxis not indicated Code status full code Subjective Date/time seen: 02/27/22 14:24 Interval history: No overnight events. Denies chest pain or shortness of breath. Still coughing up blood. About the same as yesterday. Discussed with Pulmonary. Review of Systems Review of Systems: All systems reviewed & are unremarkable except as noted in HPI and below Exam Narrative: General: No acute distress, alert and oriented per baseline HEENT: Atraumatic, normocephalic, mucous membranes moist CV: Regular rate and rhythm, S1, S2 Lungs: Clear to auscultation bilaterally, no rales or crackles noted, no wheezes, good air entry Abdomen: Soft, nontender, nondistended Extremities: Normal to inspection Skin: No rashes noted, no lesions or wounds seen Psych: Euthymic, normal affect Objective Data Vital Signs Vital Signs: Vital Signs - 24 hr 02/26/22 20:21 02/26/22 20:30 02/26/22 20:30 Temperature Pulse Rate 80 90 90 Respiratory Rate 18 18 Blood Pressure Pulse Oximetry 92 Oxygen Delivery Room Air Oxygen Flow Rate 02/26/22 20:45 02/26/22 20:45 02/26/22 22:00 Temperature 98.8 F Pulse Rate 88 81 Respiratory Rate 18 14 Blood Pressure 149/73 H Pulse Oximetry 92 94 Oxygen Delivery Oxygen Flow Rate 02/26/22 20:00 02/27/22 02:30 02/27/22 02:42 Temperature Pulse Rate 80 84 Respiratory Rate 20 20 Blood Pressure Pulse Oximetry 94 Oxygen Delivery Na
[2022-02-27] MEDS: POTASSIUM CHLORIDE 20 MEQ PACKET (FOR LIQUID) 40 MEQ PO (15:55)
[2022-02-27] MEDS: traZODone HCL 50 MG TABLET PO (20:59)
[2022-02-27] MEDS: GABAPENTIN 300 MG CAPSULE PO (20:59)
[2022-02-27 21:19] LABS: Mycoplasma IgM Antibody Titer 421 U/mL (<770)
[2022-02-28] VITALS (11 sets, daily range): BP systolic 152–187; BP diastolic 65–78; PULSE 73–100; RESP 16–22; TEMP 36.7–37.5; O2SAT 91–97
[2022-02-28] MEDS: PIPERACILLIN/TAZOBACTAM SOD 4.5 GM in SODIUM CHLORIDE 0.9% IV 100 ML 200 ML IVPB ×4 (00:41→18:24)
--- NOTE | 2022-02-28 00:49 | PC.NURSE ---
02/27/22 2100 Vanc trough lab drawn 2300; patient proceeded to refuse lab draw when r&d lab technician attempted to draw blood. Pt agreed to let house player perform blood draw. blood drawn @0054 and sent to lab.
[2022-02-28 01:36] LABS: Vancomycin Trough 8.4 ug/mL (10.0-20.0)
--- NOTE | 2022-02-28 01:43 | PC.NURSE ---
patient given 2100 dose of vanc @ 0145 due to late vanc trough being drawn
[2022-02-28] MEDS: traMADol HCL (*CRX) 50 MG TABLET PO ×3 (05:11→21:17)
[2022-02-28 06:37] LABS: Basophils Absolute Auto 0.1 K/mm3 (0.0-0.1); Basophils Percent Auto 0.5 % (0.2-1.2); Eosinophils Absolute Auto 0.5 K/mm3 (0-0.3); Eosinophils Percent Auto 4.6 % (0-4.4); Hematocrit 32.1 % (42.0-52.0); Hemoglobin 10.7 g/dL (14.0-18.0); Immature Granulocyte Absolute 0.04 K/mm3 (0.00-0.031); Immature Granulocyte Percent A 0.4 % (0-0.5); Lymphocytes Absolute Auto 1.69 K/mm3 (0.9-3.2); Lymphocytes Percent Auto 15.3 % (18.3-44.2); Mean Corpuscular HGB Conc 33.3 g/dl (32-36); Mean Corpuscular Hemoglobin 30.4 pg (26-34); Mean Corpuscular Volume 91.2 fl (80-100); Mean Platelet Volume 11.3 fl (7.4-10.4); Monocytes Absolute Auto 1.1 K/mm3 (0.1-0.6); Monocytes Percent Auto 9.5 % (2.6-8.5); Neutrophils Absolute Auto 7.7 K/mm3 (1.3-6.7); Neutrophils Percent Auto 69.7 % (45.5-73.1); Platelet Count Result 216 k/mm3 (150-375); Red Blood Count 3.52 M/mm3 (4.6-6.20); Red Cell Distribution Width 12.6 % (11.5-14.5)
[2022-02-28 06:47] LABS: Alanine Aminotransferase 20 U/L (6-50); Albumin Level 3.8 g/dL (3.5-5.1); Alkaline Phosphatase 57 U/L (38-126); Anion Gap 15 mmol/L (8-16); Aspartate Amino Transferase 28 U/L (17-59); Bilirubin,Total 1.2 mg/dL (0.2-1.3); Blood Urea Nitrogen 8 mg/dL (9-20); Calcium 8.6 mg/dL (8.4-10.2); Carbon Dioxide 30 mmol/L (22-30); Chloride 96 mmol/L (98-107); Estimated CRCL calculation 73 ml/min; Estimated Glomerular Filt Rate > 60; Glucose 127 mg/dL (65-110); Magnesium 1.6 mg/dL (1.6-2.3); Sodium 141 mmol/L (137-145)
[2022-02-28] MEDS: ALBUTEROL SULFATE NEB 2.5 MG/3 ML INH INHALATION ×3 (08:10→20:30)
[2022-02-28] MEDS: IPRATROPIUM BR 0.02% INH SOLN 0.5 MG/2.5 ML VIAL INHALATION ×3 (08:10→20:30)
--- NOTE | 2022-02-28 08:20 | PM.PNPUL ---
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 currently is not wheezing and I will continue albuterol and ipratropium nebulizers Q 6 hours at this time. He is currently on room air with saturations 92%. 02/26 No wheezes on albuterol and ipratropium nebulizers Q 6 hours. 02/27 I will switch him to albuterol and ipratropium nebulizers q.4 hours while awake 02/28 No wheezes on exam will continue albuterol and ipratropium nebulizers q.4 hours while awake. (2) Hemoptysis: Code(s): R04.2 - Hemoptysis Status: Acute Assessment and Plan: patient with a history of COPD with severe apical greater than basilar panlobular emphysema and a 7 cm pleural based nodule -mass on 11/21/2021. He currently presents with 2 days history of an acute illness characterized by hemoptysis, shortness of breath, cough, shakes and anorexia with a leukocytosis of 16.4, a creatinine of 1.50 and infiltrate on his chest x-ray in the right mid and lower lobe area. COVID RT PCR negative, influenza swab negative. The etiology of his hemoptysis includes community-acquired pneumonia, lung cancer, COPD, pulmonary embolism. I agree with ceftriaxone and azithromycin for community-acquired pneumonia coverage. Patient has a positive D-dimer and I will obtain a CT angiogram of the chest. This will also enable us to assess his 7 cm pleural based right lung mass from 11/21/2021. The patient does have COPD but he has no wheezing and I do not feel he is in a COPD exacerbation at this time. CT angiogram of the chest negative for PE does show pneumonia and stable soft tissue thickening next to his right upper lobe thoracotomy area. 02/26 Overall the patient feels slightly better is he was able to sleep last night and he is appetite has returned and he is eating breakfast. He says he feels 50% back to his normal. He is now on room air with saturations 92%. He continues with the same amount of cough and hemoptysis about 1 expect duration every 2 hours. His white blood cell count is 13.9, he is afebrile. Blood cultures are negative, sputum cultures mixed reji. Patient with continued hemoptysis and will change his antibiotics to cover resistant organisms as well as Pseudomonas with vancomycin, Zosyn and Levaquin. Will check coags in the morning. Will check chest x-ray in the morning. 02/27 patient states he has improved. He states he is 60% back to his baseline. His breathing is better. He says maybe he is coughing less but he still continues with hemoptysis. His white blood cell count is 12.4, his creatinine is 1.0, he is afebrile, he is on 1 L nasal cannula saturations 92%. Chest x-ray with some areas of improvement and some areas more confluent infiltrate in the right lower lobe. INR is 1.2. day 3 antibiotics total and day 2 of vanc, Zosyn, and Levaquin. 02/28 states is he is clinically the same as he was yesterday. He still is having hemoptysis every 1-2 hours. His room air saturations are 92%. His white blood cell count is 11.0, he is afebrile, creatinine is 1.0. Day 4 antibiotics total amd day 3 vanc Zosyn and Levaquin. Patient with continued hemoptysis. I will obtain a CT scan of the chest today and tentatively have scheduled him for bronchoscopy on 03/01. I am waiting to hear back from the bronchoscopy suite regarding their availability. (3) Lung mass: Code(s): R91.8 - Other nonspecific abnormal finding of lung field Status: Acute Assessment and Plan: 11/21/2021. This irregular prominent asymmetric pleural-based soft tissue thickening measures almost 7 cm transverse dimension, up to appro
[2022-02-28] MEDS: LACTATED RINGERS 1,000 ML 150 ML IV CONT (09:42)
--- NOTE | 2022-02-28 09:52 | WPDANESEPPF ---
Anes - Initial Pre Proc Eval Procedure: Operation Date: 02/28/22 12:00 Proposed Procedures p Bronchoscopy with Fluoroscopy - Henri Chan MD Date/Time: 02/28/22 09:52 Surgeon: Donal Jarquin MD Pre Op Diagnosis: pneumonia,hemoptysis Patient Data Age: 67 Gender: M Height: 1.88 m Weight: 77.8 kg Last Vital Signs Temp 36.8 C 02/28/22 09:37 Pulse 78 02/28/22 09:37 Resp 22 H 02/28/22 09:37 BP 187/65 H 02/28/22 09:37 Pulse Ox 93 02/28/22 09:37 O2 Del Method Room Air 02/28/22 09:37 O2 Flow Rate 1 02/26/22 20:00 Allergies Allergy/AdvReac Type Severity Reaction Status Date / Time atorvastatin Allergy Mild Swelling Verified 11/21/21 16:35 Home Medications Medication Instructions Recorded Confirmed Type clonazepam 0.5 mg tablet 0.5 mg PO 1XD 11/21/21 02/24/22 History gabapentin 300 mg capsule 300 mg PO HS 11/21/21 02/24/22 History lisinopril 5 mg tablet 5 mg PO 1XD 11/21/21 02/24/22 History metoprolol tartrate 25 mg tablet 12.5 mg PO 2XD 11/21/21 02/24/22 History sertraline 100 mg tablet 100 mg PO 1XD 11/21/21 02/24/22 History simvastatin 20 mg tablet 20 mg PO 1XD 11/21/21 02/24/22 History tramadol 50 mg tablet 50 mg PO 3XD 11/21/21 02/24/22 History trazodone 50 mg tablet 50 mg PO HS 11/21/21 02/24/22 History Adult Low Dose Aspirin 81 mg PO 1XD 02/24/22 02/24/22 History Tylenol Arthritis 1,300 mg PO HS 02/24/22 02/24/22 History Laboratory Tests 02/24/22 02/28/22 02/28/22 22:56 00:50 06:11 WBC 11.0 K/mm3 H K/mm3 (4.5-10.0) RBC 3.52 M/mm3 L M/mm3 (4.6-6.20) Hgb 10.7 g/dL L g/dL (14.0-18.0) Hct 32.1 % L % (42.0-52.0) MCV 91.2 fl fl (80-100) MCH 30.4 pg pg (26-34) MCHC 33.3 g/dl g/dl (32-36) RDW 12.6 % % (11.5-14.5) Plt Count 216 k/mm3 k/mm3 (150-375) MPV 11.3 fl H fl (7.4-10.4) Immature Gran % (Auto) 0.4 % % (0-0.5) Neut % (Auto) 69.7 % % (45.5-73.1) Lymph % (Auto) 15.3 % L % (18.3-44.2) [place] % (Auto) 9.5 % H % (2.6-8.5) Eos % (Auto) 4.6 % H % (0-4.4) Baso % (Auto) 0.5 % % (0.2-1.2) Lymph # (Auto) 1.69 K/mm3 K/mm3 (0.9-3.2) [place] # (Auto) 1.1 K/mm3 H K/mm3 (0.1-0.6) Eos # (Auto) 0.5 K/mm3 H K/mm3 (0-0.3) Baso # (Auto) 0.1 K/mm3 K/mm3 (0.0-0.1) Abs Immat Gran (auto) 0.04 K/mm3 H K/mm3 (0.00-0.031) Absolute Neuts (auto) 7.7 K/mm3 H K/mm3 (1.3-6.7) Absolute Nucleated RBC 0.0 K/mm3 K/mm3 (0.0-0.012) Nucleated RBC % 0.0 % % (0.0-0.2) Sodium Potassium Chloride Carbon Dioxide Anion Gap BUN Creatinine Estim Creat Clear Calc Estimated GFR Glucose Calcium Magnesium Total Bilirubin AST ALT Alkaline Phosphatase Total Protein Albumin Vancomycin Trough 8.4 ug/mL L ug/mL (10.0-20.0) Mycoplasma pneumon IgM 421 U/mL U/mL (<770) 02/28/22 06:11 WBC RBC Hgb Hct MCV MCH MCHC RDW Plt Count MPV Immature Gran % (Auto) Neut % (Auto) Lymph % (Auto) [place] % (Auto) Eos % (Auto) Baso % (Auto) Lymph # (Auto) [place] # (Auto) Eos # (Auto) Baso # (Auto) Abs Immat Gran (auto) Absolute Neuts (auto) Absolute Nucleated RBC Nucleated RBC % Sodium 141 mmol/L mmol/L (137-145) Potassium 3.0 mmol/L L mmol/L (3.4-5.0) Chloride 96 mmol/L L mmol/L (98-107) Carbon Dioxide 30 mmol/L mmol/L (22-30) Anion Gap 15 mmol/L mmol/L (8-16) BUN 8 mg/dL L mg/dL (9-20) Creatinine 1.00 mg/dL mg/dL (0.7-1.3)
--- NOTE | 2022-02-28 11:41 | PC.NURSE ---
pt went down for bronchoscopy around 0840. Dr. Chan put order in and told this nurse to put in npo orders.
--- NOTE | 2022-02-28 13:11 | SUR.PREOP ---
Due to lack of anesthesia, bronchoscopy has been canceled and will be rescheduled to a later date. Dr Chan at bedside and made aware and orders to do procedure.
[2022-02-28] MEDS: POTASSIUM CHLORIDE 20 MEQ PACKET (FOR LIQUID) 40 MEQ PO (13:29)
[2022-02-28] MEDS: SIMVASTATIN 20 MG TABLET PO (13:34)
[2022-02-28] MEDS: lisinopriL 5 MG TABLET PO (13:34)
[2022-02-28] MEDS: clonazePAM (*CRX) 0.5 MG TABLET PO (13:34)
[2022-02-28] MEDS: SERTRALINE HCL 50 MG TABLET 100 MG PO (13:34)
--- NOTE | 2022-02-28 13:34 | PCRCNOTE ---
Window of time for administration has passed. See next scheduled administration.
[2022-02-28 13:55] LABS: Creatine Kinase 150 U/L (55-170)
[2022-02-28 14:20] LABS: Vancomycin Trough 11.8 ug/mL (10.0-20.0)
[2022-02-28 14:37] LABS: Rheumatoid Factor 13.3 IU/ML (<12)
--- NOTE | 2022-02-28 16:41 | PM.IMPN ---
Progress Note: A&P Assessment and Plan (1) Hemoptysis: Code(s): R04.2 - Hemoptysis Status: Acute Assessment and Plan: Suspect this is due to underlying pneumonia, cannot rule out malignancy versus COPD Worsening, concern for pulmonary hemorrhage is high, if hemoptysis does not improve on escalated antibiotics, will need to arrange transfer to higher level of care Coag paraMeter okay platelets are normal (2) Pneumonia: Code(s): J18.9 - Pneumonia, unspecified organism Status: Acute Assessment and Plan: Symptoms worsening, broaden coverage is with IV vancomycin, Zosyn and Levaquin for double Pseudomonas coverage, discontinue Rocephin and azithromycin which was initially started WBC count 16,000 on admission Mycoplasma pending Legionella pending Pneumococcal pending Influenza and COVID negative (3) Acute kidney injury: Code(s): N17.9 - Acute kidney failure, unspecified Status: Acute Assessment and Plan: mild QUAN on admission 1.5 Resolved (4) Dehydration: Code(s): E86.0 - Dehydration Status: Acute Assessment and Plan: Resolved (5) Hypokalemia: Code(s): E87.6 - Hypokalemia Status: Acute Assessment and Plan: Replete and recheck (6) Coronary artery disease: Code(s): I25.10 - Atherosclerotic heart disease of [place] coronary artery without angina pectoris Status: Acute Assessment and Plan: Stable (7) Lung mass: Code(s): R91.8 - Other nonspecific abnormal finding of lung field Status: Acute Assessment and Plan: Appreciate pulmonology consultation CTA showed right lower lobe pneumonia, severe bolus emphysema, cannot rule out malignancy (8) COPD (chronic obstructive pulmonary disease): Code(s): J44.9 - Chronic obstructive pulmonary disease, unspecified Status: Acute Assessment and Plan: 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d Adson thoracotomy change of the posterior right 5th rib. These findings are likely chronic pulmonary and pleural scar. Per CT chest 02/25/2022 Alpha 1 antitrypsin level ordered which is pending Will stop IV fluids (9) Former heavy tobacco smoker: Code(s): Z87.891 - Personal history of nicotine dependence Status: Acute Plan status post right upper lobectomy DVT prophylaxis with SCDs GI prophylaxis not indicated Code status full code Subjective Date/time seen: 02/28/22 16:41 Interval history: no overnight events continues to have blood and sputum. Cough present denies any chest pain or shortness of breath feels weak. Plan for bronchoscopy but had to be postponed. Discussed with Pulmonary Review of Systems Review of Systems: All systems reviewed & are unremarkable except as noted in HPI and below Exam Narrative: General: No acute distress, alert and oriented per baseline HEENT: Atraumatic, normocephalic, mucous membranes moist CV: Regular rate and rhythm, S1, S2 Lungs: Clear to auscultation bilaterally, no rales or crackles noted, no wheezes, good air entry Abdomen: Soft, nontender, nondistended Extremities: Normal to inspection Skin: No rashes noted, no lesions or wounds seen Psych: Euthymic, normal affect Objective Data Vital Signs Vital Signs: Vital Signs - 24 hr 02/27/22 19:22 02/27/22 19:20 02/27/22 19:26 Temperature Pulse Rate 87 89 89 Respiratory Rate 20 20 20 Blood Pressure Pulse Oximetry 99 Oxygen Delivery Room Air 02/27/22 20:00 02/27/22 20:59 02/27/22 22:00 Temperature 99.2 F Pulse Rate 78 79 Respiratory Rate 16 Blood Pressure 161/77 H Pulse Oximetry 93 Oxygen Delivery Room Air 02/28/22 06:00 02/28/22 08:10 02/28/22 08:10 Temperature 98.3 F Pulse Rate 97 78 Respiratory Rate 16 20 Blood Pressure 176/78 H Pulse
[2022-02-28 17:51] LABS: Pneumococcal Antigen Urine Not Detected (Not Detected)
[2022-02-28 20:53] LABS: CRP 12.8 mg/dL (<1.0)
[2022-02-28] MEDS: traZODone HCL 50 MG TABLET PO (21:17)
[2022-02-28] MEDS: METOPROLOL TARTRATE 12.5 MG TABLET PO (21:17)
[2022-02-28] MEDS: GABAPENTIN 300 MG CAPSULE PO (21:17)
[2022-03-01] VITALS (14 sets, daily range): BP systolic 133–173; BP diastolic 59–77; PULSE 74–93; RESP 16–18; TEMP 36.1–36.9; O2SAT 90–98
[2022-03-01] MEDS: PIPERACILLIN/TAZOBACTAM SOD 4.5 GM in SODIUM CHLORIDE 0.9% IV 100 ML 200 ML IVPB ×4 (00:08→17:02)
[2022-03-01 04:38] LABS: Legionella pneumophila Ag Ur Not Detected (Not Detected)
[2022-03-01] MEDS: traMADol HCL (*CRX) 50 MG TABLET PO ×3 (06:39→20:06)
--- NOTE | 2022-03-01 07:25 | PM.PNPUL ---
Progress Note: A&P Assessment and Plan (1) Hemoptysis: Code(s): R04.2 - Hemoptysis Status: Acute Assessment and Plan: patient with a history of COPD with severe apical greater than basilar panlobular emphysema and a 7 cm pleural based nodule -mass on 11/21/2021. He currently presents with 2 days history of an acute illness characterized by hemoptysis, shortness of breath, cough, shakes and anorexia with a leukocytosis of 16.4, a creatinine of 1.50 and infiltrate on his chest x-ray in the right mid and lower lobe area. COVID RT PCR negative, influenza swab negative. The etiology of his hemoptysis includes infection (viral or community-acquired pneumonia), lung cancer, COPD, pulmonary embolism. I agree with ceftriaxone and azithromycin for community-acquired pneumonia coverage. Patient has a positive D-dimer and I will obtain a CT angiogram of the chest. This will also enable us to assess his 7 cm pleural based right lung mass from 11/21/2021. The patient does have COPD but he has no wheezing and I do not feel he is in a COPD exacerbation at this time. CT angiogram of the chest negative for PE does show pneumonia and stable soft tissue thickening next to his right upper lobe thoracotomy area. 02/26 Overall the patient feels slightly better is he was able to sleep last night and he is appetite has returned and he is eating breakfast. He says he feels 50% back to his normal. He is now on room air with saturations 92%. He continues with the same amount of cough and hemoptysis about 1 expect duration every 2 hours. His white blood cell count is 13.9, he is afebrile. Blood cultures are negative, sputum cultures mixed reji. Patient with continued hemoptysis and will change his antibiotics to cover resistant organisms as well as Pseudomonas with vancomycin, Zosyn and Levaquin. Will check coags in the morning. Will check chest x-ray in the morning. 02/27 patient states he has improved. He states he is 60% back to his baseline. His breathing is better. He says maybe he is coughing less but he still continues with hemoptysis. His white blood cell count is 12.4, his creatinine is 1.0, he is afebrile, he is on 1 L nasal cannula saturations 92%. Chest x-ray with some areas of improvement and some areas more confluent infiltrate in the right lower lobe. INR is 1.2. day 3 antibiotics total and day 2 of vanc, Zosyn, and Levaquin. 02/28 states is he is clinically the same as he was yesterday. He still is having hemoptysis every 1-2 hours. His room air saturations are 92%. His white blood cell count is 11.0, he is afebrile, creatinine is 1.0. Day 4 antibiotics total amd day 3 vanc Zosyn and Levaquin. Patient with continued hemoptysis. I will obtain a CT scan of the chest today and tentatively have scheduled him for bronchoscopy on 03/01. I am waiting to hear back from the bronchoscopy suite regarding their availability. No bronchoscopy times available on 03/01 so will plan for bronchoscopy later today. 03/01 Unable to perform bronchoscopy yesterday due to emergency anesthesia cases. Patient still complains of hemoptysis every 1-2 hours. Room air saturations are 94%. Hemoptysis has not responded to 5 days of antibiotics including 4 days of Vanc Zosyn and Levaquin. Continue antibiotics. I have initiated workup for additional causes of hemoptysis including sputum for AFB, sputum for fungus, repeat studies for COVID, influenza and RSV viral infection and an extended respiratory pathogen panel (quest), serologies for connective tissue disorder and ordered an echocardiogram. Speech therapy consult for possible aspiration. Patient with continued hemoptysis for 5 days despite broad spectrum antibiotics and recommend transfer to higher level of care facility so that he can be evaluated for possible arteriography and embolization. Patient is in agreement with this and I have discussed with the hospitalist Dr. Jarquin who will
--- NOTE | 2022-03-01 07:29 | PM.TDS ---
Transfer Discharge Sum: Prov Provider Date of admission: 02/25/22 18:11 Primary care physician: Charly Fernandez, DO Admitting clinician: River Guerrier MD Consults: 02/24/22 18:08 Consult to Physician Routine Comment: Consulting Provider: Maria Luisa Pierce at home independent call center agent/MD group to consult: Stan Reason for consultation: Hemoptysis Has provider been notified: Yes DS: Admitting Diagnosis Discharge Date 03/02/22 Admitting Diagnosis hemoptysis DS: Discharge Diagnosis Discharge Diagnosis (1) Hemoptysis: Code(s): R04.2 - Hemoptysis Status: Acute (2) Pneumonia: Code(s): J18.9 - Pneumonia, unspecified organism Status: Acute (3) Acute kidney injury: Code(s): N17.9 - Acute kidney failure, unspecified Status: Acute (4) Dehydration: Code(s): E86.0 - Dehydration Status: Acute (5) Hypokalemia: Code(s): E87.6 - Hypokalemia Status: Acute (6) Coronary artery disease: Code(s): I25.10 - Atherosclerotic heart disease of [place] coronary artery without angina pectoris Status: Acute (7) Lung mass: Code(s): R91.8 - Other nonspecific abnormal finding of lung field Status: Acute (8) COPD (chronic obstructive pulmonary disease): Code(s): J44.9 - Chronic obstructive pulmonary disease, unspecified Status: Acute (9) Former heavy tobacco smoker: Code(s): Z87.891 - Personal history of nicotine dependence Status: Acute Transfer Discharge Sum: Med Medications Active and Home Medications: Home Medications clonazepam 0.5 mg tablet 0.5 mg PO 1XD 11/21/21 [History Confirmed 02/24/22] gabapentin 300 mg capsule 300 mg PO HS 11/21/21 [History Confirmed 02/24/22] lisinopril 5 mg tablet 5 mg PO 1XD 11/21/21 [History Confirmed 02/24/22] metoprolol tartrate 25 mg tablet 12.5 mg PO 2XD 11/21/21 [History Confirmed 02/24/22] sertraline 100 mg tablet 100 mg PO 1XD 11/21/21 [History Confirmed 02/24/22] simvastatin 20 mg tablet 20 mg PO 1XD 11/21/21 [History Confirmed 02/24/22] tramadol 50 mg tablet 50 mg PO 3XD 11/21/21 [History Confirmed 02/24/22] trazodone 50 mg tablet 50 mg PO HS 11/21/21 [History Confirmed 02/24/22] Adult Low Dose Aspirin 81 mg PO 1XD 02/24/22 [History Confirmed 02/24/22] Tylenol Arthritis 1,300 mg PO HS 02/24/22 [History Confirmed 02/24/22] Transfer Discharge Sum: Hosp Hospital Course Hospital course: Trevor Hyde is a 67 year old male with # Hemoptysis: Suspect this is due to underlying pneumonia, cannot rule out malignancy versus COPD Worsening, concern for pulmonary hemorrhage is high, connective tissue workup pending. hemoptyiss continues. discsused with pulmonary since ongoing hemoptysis, discussed need for possible pulmonary arteriography and embolization which is not available in this hospital.? Bronchoscopy was attempted 02/28/2022 however was postponed due to anaesthesia issue Coag parameter okay platelets are normal discussed with tertiary center and transferred for further care. # Pneumonia: Symptoms worsening,? broaden coverage is with IV vancomycin, Zosyn and Levaquin for double Pseudomonas coverage, discontinue Rocephin and azithromycin which was initially started WBC count 16,000 on admission Mycoplasma IgM negative Legionella negative Pneumococcal negative Influenza and COVID negative QuantiFERON pending Fungal culture negative so far # Acute kidney injury: ?mild QUAN on admission 1.5 Resolved # Dehydration: Resolved # Hypokalemia: Replete and recheck # Coronary artery disease: Stable # Lung mass: Appreciate pulmonology consultation CTA showed right lower lobe pneumonia, severe bolus emphysema, cannot rule out malignancy # COPD (chronic obstructive pulmonary disease): ?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
[2022-03-01 07:52] LABS: Basophils Absolute Auto 0.1 K/mm3 (0.0-0.1); Basophils Percent Auto 0.7 % (0.2-1.2); Eosinophils Absolute Auto 0.4 K/mm3 (0-0.3); Eosinophils Percent Auto 3.4 % (0-4.4); Hematocrit 32.8 % (42.0-52.0); Immature Granulocyte Absolute 0.04 K/mm3 (0.00-0.031); Immature Granulocyte Percent A 0.3 % (0-0.5); Lymphocytes Absolute Auto 1.54 K/mm3 (0.9-3.2); Lymphocytes Percent Auto 13.4 % (18.3-44.2); Mean Corpuscular HGB Conc 33.5 g/dl (32-36); Mean Corpuscular Hemoglobin 30.4 pg (26-34); Mean Corpuscular Volume 90.6 fl (80-100); Mean Platelet Volume 11.5 fl (7.4-10.4); Monocytes Percent Auto 9.1 % (2.6-8.5); Neutrophils Absolute Auto 8.4 K/mm3 (1.3-6.7); Neutrophils Percent Auto 73.1 % (45.5-73.1); Platelet Count Result 237 k/mm3 (150-375); Red Blood Count 3.62 M/mm3 (4.6-6.20); Red Cell Distribution Width 12.6 % (11.5-14.5); White Blood Count 11.5 K/mm3 (4.5-10.0)
[2022-03-01 08:07] LABS: Alanine Aminotransferase 27 U/L (6-50); Albumin Level 3.9 g/dL (3.5-5.1); Alkaline Phosphatase 57 U/L (38-126); Anion Gap 15 mmol/L (8-16); Aspartate Amino Transferase 37 U/L (17-59); Bilirubin,Total 0.9 mg/dL (0.2-1.3); Blood Urea Nitrogen 11 mg/dL (9-20); Calcium 8.7 mg/dL (8.4-10.2); Carbon Dioxide 30 mmol/L (22-30); Chloride 94 mmol/L (98-107); Estimated CRCL calculation 56 ml/min; Estimated Glomerular Filt Rate > 60; Glucose 157 mg/dL (65-110); Potassium 3.4 mmol/L (3.4-5.0); Sodium 139 mmol/L (137-145)
[2022-03-01] MEDS: ALBUTEROL SULFATE NEB 2.5 MG/3 ML INH INHALATION ×4 (08:14→21:21)
[2022-03-01] MEDS: IPRATROPIUM BR 0.02% INH SOLN 0.5 MG/2.5 ML VIAL INHALATION ×4 (08:14→21:21)
[2022-03-01] MEDS: lisinopriL 5 MG TABLET PO (08:34)
[2022-03-01] MEDS: METOPROLOL TARTRATE 12.5 MG TABLET PO ×2 (08:34→20:06)
[2022-03-01] MEDS: SIMVASTATIN 20 MG TABLET PO (08:34)
[2022-03-01] MEDS: clonazePAM (*CRX) 0.5 MG TABLET PO (08:34)
[2022-03-01] MEDS: SERTRALINE HCL 50 MG TABLET 100 MG PO (08:34)
--- NOTE | 2022-03-01 10:22 | PCSTNOTE ---
Please refer to the Modified Barium Swallow Evaluation in the EMR.
[2022-03-01] MEDS: HYDROcodone/acetaminophen (*CRX) 5-325 MG TABLET 1 TAB PO (11:31)
--- NOTE | 2022-03-01 13:28 | ECHO_ITS ---
Patient Info Name: Trevor Hyde Age: 67 years : 1955 Gender: Male Ht: 74 in Wt: 171 lbs BSA: 2.01 m2 HR: 79 bpm BP: 152 / 73 mmHg Heart Rhythm: Sinus Rhythm Exam Date: 03/01/2022 11:04 AM Exam Location: [facility] Patient Status: Inpatient Admit Date: 02/25/2022 Staff Ordering Physician: Henri Chan MD Woodworking Craftsman: Guanaco Manrique, KALEB, RT Attending Provider: Donal Jarquin MD Referring Physician: Dustin CABRERA; Exam Type: CA echo doppler color flow Study Info Indications - L/RV fx, pulm pressures, valves I50.9 - Heart failure, unspecified Complete two-dimensional, color flow and Doppler transthoracic echocardiogram is performed. Strain analysis performed. Summary 1. Complete two-dimensional, color flow and Doppler transthoracic echocardiogram is performed. 2. Technically difficult imaging from the parasternal view/adequate imaging from the apex. 3. Normal left ventricular size with hyperdynamic systolic function. 4. Grade 1 diastolic noncompliance. 5. Normal right ventricular size. 6. Lack of tricuspid regurgitant jet precludes accurate estimation of pulmonary artery pressure. 7. No other stigmata of significant pulmonary hypertension are noted. Left Ventricle Left ventricular chamber dimension is normal. Left ventricular systolic function is hyperdynamic, estimated at >70%. The left ventricular diastolic function is grade I diastolic dysfunction. Right Ventricle Right ventricular chamber dimension is normal. Left Atria Left atrial chamber dimension is normal. Right Atria Right atrial chamber dimension is normal. Aortic Valve The aortic valve is normal. Pulmonic Valve The pulmonic valve is not well visualized. Mitral Valve The mitral valve has normal leaflets. There is mild mitral valve regurgitation. The mitral valve annulus is mildly calcified. Tricuspid Valve The tricuspid valve leaflets are not well visualized. There is no tricuspid valve regurgitation. Pericardium/Pleural The pericardium appears normal. Aorta The aortic root size at the sinus of Valsalva is normal. Left Ventricular Outflow Tract Name Value Normal LVOT 2D LVOT Diameter 2.0 cm LVOT Doppler LVOT Peak Gradient 4 mmHg LVOT Mean Gradient 2 mmHg LVOT VTI 17 cm LVOT VTI/AV VTI Ratio 0.8 LVOT Stroke Volume 53 ml LVOT CO 3.8 l/min LVOT CI 1.9 l/min/m2 Mitral Valve Name Value Normal MV Doppler MV Peak Gradient 1 mmHg MV Mean Gradient 0 mmHg MV Decel [place] 433 cm/s2 MV PHT 55
--- NOTE | 2022-03-01 14:15 | PM.IMPN ---
Progress Note: A&P Assessment and Plan (1) Hemoptysis: Code(s): R04.2 - Hemoptysis Status: Acute Assessment and Plan: Suspect this is due to underlying pneumonia, cannot rule out malignancy versus COPD Worsening, concern for pulmonary hemorrhage is high, connective tissue workup pending. hemoptyiss continues. discsused with pulmonary since ongoing hemoptysis, discussed need for possible pulmonary arteriography and embolization which is not available in this hospital. Bronchoscopy was attempted 02/28/2022 however was postponed due to anaesthesia issue Coag paraMeter okay platelets are normal (2) Pneumonia: Code(s): J18.9 - Pneumonia, unspecified organism Status: Acute Assessment and Plan: Symptoms worsening, broaden coverage is with IV vancomycin, Zosyn and Levaquin for double Pseudomonas coverage, discontinue Rocephin and azithromycin which was initially started WBC count 16,000 on admission Mycoplasma IgM negative Legionella negative Pneumococcal negative Influenza and COVID negative QuantiFERON pending Fungal culture negative so far (3) Acute kidney injury: Code(s): N17.9 - Acute kidney failure, unspecified Status: Acute Assessment and Plan: mild QUAN on admission 1.5 Resolved (4) Dehydration: Code(s): E86.0 - Dehydration Status: Acute Assessment and Plan: Resolved (5) Hypokalemia: Code(s): E87.6 - Hypokalemia Status: Acute Assessment and Plan: Replete and recheck (6) Coronary artery disease: Code(s): I25.10 - Atherosclerotic heart disease of stebbins coronary artery without angina pectoris Status: Acute Assessment and Plan: Stable (7) Lung mass: Code(s): R91.8 - Other nonspecific abnormal finding of lung field Status: Acute Assessment and Plan: Appreciate pulmonology consultation CTA showed right lower lobe pneumonia, severe bolus emphysema, cannot rule out malignancy (8) COPD (chronic obstructive pulmonary disease): Code(s): J44.9 - Chronic obstructive pulmonary disease, unspecified Status: Acute Assessment and Plan: 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d Adson thoracotomy change of the posterior right 5th rib. These findings are likely chronic pulmonary and pleural scar. Per CT chest 02/25/2022 Alpha 1 antitrypsin level ordered which is pending Dysphagia: Mild modified barium swallow reviewed. Discussed with speech therapy. On thickened liquids. (9) Former heavy tobacco smoker: Code(s): Z87.891 - Personal history of nicotine dependence Status: Acute Plan status post right upper lobectomy DVT prophylaxis with SCDs GI prophylaxis not indicated Code status full code Subjective Date/time seen: 03/01/22 14:15 Interval history: no overnight events continues to have blood and sputum. Cough present denies any chest pain or shortness of breath feels weak. bronchoscopy was postponed. discussed with pulmonary this am. Review of Systems Review of Systems: All systems reviewed & are unremarkable except as noted in HPI and below Exam Narrative: General: No acute distress, alert and oriented per baseline HEENT: Atraumatic, normocephalic, mucous membranes moist CV: Regular rate and rhythm, S1, S2 Lungs: Clear to auscultation bilaterally, no rales or crackles noted, no wheezes, good air entry Abdomen: Soft, nontender, nondistended Extremities: Normal to inspection Skin: No rashes noted, no lesions or wounds seen Psych: Euthymic, normal affect Objective Data Vital Signs Vital Signs: Vital Signs - 24 hr 02/28/22 14:26 02/28/22 15:24 02/28/22 15:45 Temperature 99.5 F Pulse Rate 99 100 90 Respiratory Rate 22 H 20 18 Blood Pressure 184/74 H Pulse Oximetry 93 Oxygen Delivery
[2022-03-01] MEDS: GABAPENTIN 300 MG CAPSULE PO (20:06)
[2022-03-01] MEDS: traZODone HCL 50 MG TABLET PO (20:07)
[2022-03-02] MEDS: PIPERACILLIN/TAZOBACTAM SOD 4.5 GM in SODIUM CHLORIDE 0.9% IV 100 ML 200 ML IVPB (00:09)
--- NOTE | 2022-03-02 00:59 | PC.NURSE ---
Pt educated on dietary orders and recommendations of thickened liquids. Pt is noncompliant, drinking thin mountian dew he purchased and refusing to allow staff to thicken any liquids.
[2022-03-02] MEDS: HYDROcodone/acetaminophen (*CRX) 5-325 MG TABLET 1 TAB PO (02:32)
[2022-03-02 13:51] LABS: NIL 0.02 IU/mL; Quantiferon TB Plus, 1T NEGATIVE (NEGATIVE)
[2022-03-03 13:32] LABS: Anti Cyclic Citrullinated Pept <16 Units (<20)
[2022-03-03 13:59] LABS: Alpha-1-Antitrypsin, QN 215 mg/dL (83-199)
[2022-03-03 19:47] LABS: ANA Cascade Screen Negative (Negative)
[2022-03-04 23:08] LABS: ANCA Screen Negative (Negative)
[2022-03-06 04:49] LABS: Aldolase 5.7 U/L (<=8.1)
[2022-03-07 12:41] LABS: Influenza A QL RT-PCR Negative (Negative); Influenza B QL RT-PCR Negative (Negative); RSV RNA, RT-PCR Negative (Negative); SARS-CoV-2 RNA PCR Negative
== END 2022-03-02 02:45 | disposition short-term general hospital (02) | DRG 194 ==
LOC: ANHED 18:23 → ANH3MEDSUR 20:11
PROVIDERS: Emergency Medicine; Internal Medicine Pulmonary Disease; Physician Assistant; Student in an Organized Health Care Education/Training Program; Admitting Provider Internal Medicine; Emergency Provider Emergency Medicine; PCP Family Medicine; Visit Provider Student in an Organized Health Care Education/Training Program
PROC: 0BJ08ZZ Inspection of Tracheobronchial Tree, Via Natural or Artificial Opening Endoscopic (ICD-10-PCS; CPT 31622; principal; 2022-02-28 12:00)
DX: J18.9 Pneumonia, unspecified organism (principal); I69.351 Hemiplegia and hemiparesis following cerebral infarction affecting right dominant side; R04.2 Hemoptysis; N17.9 Acute kidney failure, unspecified; J43.1 Panlobular emphysema; R91.8 Other nonspecific abnormal finding of lung field; E86.0 Dehydration; E87.6 Hypokalemia; I25.10 Atherosclerotic heart disease of native coronary artery without angina pectoris; G89.29 Other chronic pain; Z20.822 Contact with and (suspected) exposure to COVID-19; I25.2 Old myocardial infarction; Z77.22 Contact with and (suspected) exposure to environmental tobacco smoke (acute) (chronic); Z79.899 Other long term (current) drug therapy; Z87.891 Personal history of nicotine dependence; Z90.2 Acquired absence of lung [part of]; Z95.5 Presence of coronary angioplasty implant and graft
CPT/HCPCS: 36415; 71045; 71046; 71275; 80053; 80202; 82085; 82103; 82104; 82550; 83735; 84443; 85025; 85027; 85380; 85610; 85730; 86036; 86038; 86140; 86200; 86331; 86430; 86480; 86606; 86609; 86738; 86850; 86900; 86901; 87015; 87040; 87070; 87102; 87106; 87116; 87205; 87206; 87449; 87486; 87581; 87633; 87636; 87637; 87899; 92611; 93306; 94640; 96361; 96374; 99211; 99285; A9270; G0378; G0463; J0456; J0696; J1956; J2543; J3370; J3480; J7030; J7040; J7120; Q9967; U0003

== ENCOUNTER 2023-06-09 11:36 | Inpatient (IN) | payer MEDICARE, SELFPAY ==
[2023-06-09] VITALS (15 sets, daily range): BP systolic 154–190; BP diastolic 64–97; PULSE 87–104; RESP 15–25; TEMP 36.5–36.7; O2SAT 89–100; BMI 20.4
--- NOTE | ~2023-06-09 | CT_ITS ---
EXAMINATION:CT diagnostic chest wo con DATE: 06/16/2023 13:28 INDICATION: Pneumonia. Hemoptysis. TECHNIQUE: Computed tomography (CT) of the chest was performed without intravenous contrast. Automate d exposure control and iterative reconstruction technique were employed. The dose-length product (DLP ) was 190.31 mGy-cm. COMPARISON: Chest CT 06/09/2023 FINDINGS: There is severe emphysema. There are airspace and groundglass opacities in left upper lobe. There is scarring at left lung apex. There are changes of right upper lobectomy. A calcified left lillie ng nodule and calcified left hilar lymph nodes are consistent with old granulomatous disease. There a re airspace opacities in right lower lobe with interval improvement. There is scarring in right lower lobe. There is a small right pleural effusion. The heart size is normal. There are coronary artery c alcifications. No pericardial effusion. The central pulmonary is enlarged, consistent with pulmonary arterial hypertension. Calcifications in the spleen are consistent with old granulomatous disease. T here is calcified atherosclerosis of the aorta and many of the other arteries. There is levoscoliosis of upper thoracic spine. There is mild chronic anterior wedging of multiple vertebral bodies. There is moderate thoracic spondylosis. IMPRESSION: 1. Pneumonia involving right lower lobe and left upper lobe with interval improvement on the right. 2. Small right pleural effusion. 3. Severe emphysema. 4. Right upper lobectomy. Reviewed, dictated and finalized at location E. HELPER VEGETABLE IMPRESSION: 1. Pneumonia involving right lower lobe and left upper lobe with interval impro vement on the right. 2. Small right pleural effusion. 3. Severe emphysema. 4. Right upper lobectomy.
--- NOTE | ~2023-06-09 | CT_ITS ---
EXAMINATION: CTA chest PE protocol DATE: 06/09/2023 14:03 INDICATION: Cough and shortness of breath. TECHNIQUE: Computed tomography angiography (CTA) of the chest was performed with 100 mL Omnipaque-350 intravenous contrast timed to evaluate the pulmonary arteries. Coronal maximum intensity projection 3D-reconstructions were created by the technologist. Automated exposure control and iterative reconst ruction technique were employed. The dose-length product was 522.36 mGy-cm. COMPARISON: Chest CT 02/25/2022 FINDINGS: There is severe emphysema. There are airspace and groundglass opacities in right lower lobe and left upper lobe, consistent with pneumonia. There is chronic right-sided pleural thickening. No pleural effusion. There is scarring in the upper lobes and superior segment right lower lobe. The hea rt size is normal. There are coronary artery calcifications. No pericardial effusion. The central pul monary is enlarged, consistent with pulmonary arterial hypertension. There is no pulmonary embolus. C alcifications in the spleen are consistent with old granulomatous disease. There is calcified atheros clerosis of the aorta and many of the other arteries. There is an old right-sided rib defect. There i s moderate thoracic spondylosis. IMPRESSION: 1. No pulmonary embolus. 2. Pneumonia involving right lower lobe and left upper lobe. 3. Severe emphysema. Reviewed, dictated and finalized at location A. MAKER BENCH
--- NOTE | ~2023-06-09 | XR_ITS ---
EXAMINATION: XR chest 1V portable DATE: 06/13/2023 09:52 INDICATION: Pneumonia TECHNIQUE: frontal view of the chest was obtained. COMPARISON: Chest radiograph dated 06/10/2023 FINDINGS: Increased lucency and architectural distortion again seen at the bilateral upper lung zones consisten t with emphysema. Again seen is volume loss in the right upper lung zone with right apical pleural-pa renchymal scarring and paramediastinal suture line extending to the right aylin consistent with prior right upper lobectomy. Persistent airspace opacities in the bilateral mid and lower lung zones, right greater than left, consistent with pneumonia. No pleural effusion or pneumothorax. Heart size is nor mal. Enlargement of the central pulmonary arteries consistent with pulmonary arterial hypertension IMPRESSION: 1. No significant change in diffuse bilateral lung disease, right greater than left consistent with p neumonia superimposed over emphysema. 2. Status post right upper lobectomy. 3. Enlargement of the central pulmonary arteries consistent with pulmonary arterial hypertension. Reviewed, dictated and finalized at location B. RANCE EXECUTIVE IMPRESSION: 1. No significant change in diffuse bilateral lung disease, right greater than left consistent with pneumonia superimposed over emphysema. 2. Status post right upper lobectomy. 3. Enlargement of the central pulmonary arteries consistent with pulmonary alessandro rial hypertension.
--- NOTE | ~2023-06-09 | XR_ITS ---
EXAMINATION: XR chest 1V portable DATE: 06/10/2023 09:17 INDICATION: Pneumonia. TECHNIQUE: A single frontal view of the chest was obtained on 2 radiographs. COMPARISON: Chest single view 02/28/2022, chest CT 06/09/2023 FINDINGS: There are lucencies in the lungs, consistent with emphysema. There are changes of right upp er lobectomy. There are airspace opacities in all lung zones bilaterally, right worse than left. No p leural effusion or pneumothorax. The heart size is normal. IMPRESSION: 1. Diffuse lung disease, right worse than left, consistent with pneumonia superimposed on emphysema. 2. Right upper lobectomy. Reviewed, dictated and finalized at location A. TY CORONER IMPRESSION: 1. Diffuse lung disease, right worse than left, consistent with pneumonia super imposed on emphysema. 2. Right upper lobectomy.
--- NOTE | ~2023-06-09 | US_ITS ---
EXAMINATION: US venous doppler [facility] DATE: 06/11/2023 10:44 INDICATION: Deep vein thrombosis. Hemoptysis. TECHNIQUE: Grayscale ultrasound images without and with compression and Doppler ultrasound images of the bilateral lower extremity veins were obtained. COMPARISON: None. FINDINGS: The visualized portions of right common femoral vein, profunda (deep) femoral vein, femoral vein, pop liteal vein, peroneal veins, posterior tibial veins, and greater saphenous vein outflow are patent. The visualized portions of left common femoral vein, profunda femoral vein, femoral vein, popliteal v ein, peroneal veins, posterior tibial veins, and greater saphenous vein outflow are patent. IMPRESSION: 1. No deep venous thrombosis. Reviewed, dictated and finalized at location A. URSING OFFICER
--- NOTE | 2023-06-09 13:16 | ED.GENADULT ---
HPI - General Adult General Chief complaint: Recheck/Abnormal Lab/Rx <GELA Charles Last Filed: 06/09/23 13:41> Stated complaint: low o2 sat <GELA Charles Last Filed: 06/09/23 13:41> Time Seen by Provider: 06/09/23 13:16 <GELA Charles Last Filed: 06/09/23 13:41> Focused HPI: Patient is a 68 y/o male, with PMH of COPD, emphysema, former smoker (quit 2014), R lung mass s/p RUL lobectomy, CVA with residual R sided deficits, who presents to the ED with c/o hemoptysis. Patient reports he has had a persistent cough and has been coughing blood since Friday. He denies having sputum production, states it is entirely bright red blood. He has been feeling short of breath, worse with exertion, feeling weak and fatigued. He saw a new primary care doctor today and was referred to the ED for further evaluation. The primary care doctor said his oxygen saturation was low at the office. Oxygen saturation upon arrival 93% on room air. Patient denies previous oxygen requirement. He has had similar hemoptysis in the past which he attributed to pneumonia. He denies fevers, chest pain, lower extremity pain or swelling, nausea, vomiting. GENERAL: Appears older than stated age, thin, and in no acute distress. HEAD: Normocephalic, atraumatic. CHEST: Clear to auscultation. Decreased lung sounds throughout, faint scattered wheezing bilaterally. HEART: Regular rate and rhythm.? NEURO: ?Alert and oriented x3. Patient screened in triage and initial orders placed.? ?Additional care and disposition to be based upon?diagnostic testing and treatment. <GELA Charles Last Filed: 06/09/23 13:41> Source: patient <GELA Charles Last Filed: 06/09/23 13:41> Mode of arrival: ambulatory <GELA Charles Last Filed: 06/09/23 13:41> Limitations: no limitations <GLEA Charles Last Filed: 06/09/23 13:41> History of Present Illness HPI narrative: 68-year-old male presents emergency department for evaluation of increased cough congestion and hemoptysis since Friday. Patient began feeling ill on Friday and states that the shortness of breath has continued to worsen. Patient does report increasingly fatigued. <Hernandez Callaway MD - Last Filed: 06/09/23 18:46> Related Data Home medications: Home Medications Medication Instructions Recorded Confirmed clonazepam 0.5 mg tablet 0.5 mg PO 1XD 11/21/21 02/24/22 gabapentin 300 mg capsule 300 mg PO HS 11/21/21 02/24/22 metoprolol tartrate 25 mg tablet 12.5 mg PO 2XD 11/21/21 02/24/22 sertraline 100 mg tablet 100 mg PO 1XD 11/21/21 02/24/22 simvastatin 20 mg tablet 20 mg PO 1XD 11/21/21 02/24/22 trazodone 50 mg tablet 50 mg PO HS 11/21/21 02/24/22 Adult Low Dose Aspirin 81 mg PO 1XD 02/24/22 02/24/22 Tylenol Arthritis 1,300 mg PO HS 02/24/22 02/24/22 hydrocodone 5 mg-acetaminophen 325 1 tablet PO Q8H PRN 06/09/23 mg tablet lisinopril 5 mg tablet 5 mg PO BID 06/09/23 loperamide 2 mg capsule 2 mg PO QID PRN 06/09/23 oxybutynin chloride 10 mg 10 mg PO DAILY 06/09/23 tablet,extended release 24 hr <Catalina Sargent PA-C - Last Filed: 06/09/23 13:41> Allergies/adverse reactions: Allergies Allergy/AdvReac Type Severity Reaction Status Date / Time atorvastatin Allergy Mild Swelling Verified 06/09/23 11:00 <Catalina Sargent PA-C - Last Filed: 06/09/23 13:41> Review of Systems Review of Systems: All systems reviewed & are unremarkable except as noted in HPI and below <Hernandez Callaway MD - Last Filed: 06/09/23 18:46> PMFSH Past Medical History Medical History: Medical History (Updated 06/09/23 @ 18:46 by Hernandez Callaway MD) Bullous emphysema Cerebrovascular accident X3 with resultant right-sided weakness. Chronic pain Smokes medical marijuana. COPD (chronic obstructive pulmonary disease) Coronary artery disease Former heavy tobacc
--- NOTE | 2023-06-09 13:17 | ECG_ITS ---
Measurements Intervals [place] Rate: 96 P: 64 [place]: 125 QRS: 55 QRSD: 86 T: 230 QT: 368 QTc: 465 Interpretive Statements SINUS RHYTHM WITH FREQUENT VENTRICULAR PREMATURE COMPLEXES ST AND T ABNORMALITY COMPATIBLE WITH INFEROLATERAL ISCHEMIA ABNORMAL ECG COMPARED TO ECG 11/21/2021 17:36:14 PVCS ARE SEEN AND ISCHEMIC ST SEGMENT DEPRESSION IS ALSO NOTED Electronically Signed On 06-09-2023 18:31:58 FIRE PREVENTION INSPECTOR by Henri Patel M.D.
[2023-06-09 13:33] LABS: Basophils Absolute Auto 0.1 K/mm3 (0.0-0.1); Basophils Percent Auto 0.4 % (0.2-1.2); Eosinophils Absolute Auto 0.1 K/mm3 (0-0.3); Eosinophils Percent Auto 0.5 % (0-4.4); Hemoglobin 12.3 g/dL (14.0-18.0); Immature Granulocyte Absolute 0.06 K/mm3 (0.00-0.031); Immature Granulocyte Percent A 0.4 % (0-0.5); Lymphocytes Absolute Auto 2.18 K/mm3 (0.9-3.2); Lymphocytes Percent Auto 15.8 % (18.3-44.2); Mean Corpuscular HGB Conc 32.4 g/dl (32-36); Mean Corpuscular Hemoglobin 29.6 pg (26-34); Mean Corpuscular Volume 91.3 fl (80-100); Mean Platelet Volume 10.7 fl (7.4-10.4); Monocytes Percent Auto 7.3 % (2.6-8.5); Neutrophils Absolute Auto 10.4 K/mm3 (1.3-6.7); Neutrophils Percent Auto 75.6 % (45.5-73.1); Platelet Count Result 284 k/mm3 (150-375); Red Blood Count 4.16 M/mm3 (4.6-6.20); Red Cell Distribution Width 12.5 % (11.5-14.5); White Blood Count 13.8 K/mm3 (4.5-10.0)
--- NOTE | 2023-06-09 13:40 | ECG_ITS ---
Measurements Intervals [place] Rate: 89 P: 53 NV: 135 QRS: 56 QRSD: 93 T: 137 QT: 382 QTc: 467 Interpretive Statements SINUS RHYTHM ST DEVIATION AND MODERATE T-WAVE ABNORMALITY, CONSIDER INFERIOR ISCHEMIA [-0.1+ mV T WAVE IN II/aVF] ABNORMAL ECG COMPARED TO ECG 06/09/2023 13:33:01 VENTRICULAR ECTOPICS ARE NOT SEEN Electronically Signed On 06-09-2023 18:33:11 CIRCUIT CLERK by Henri Patel M.D.
[2023-06-09 13:44] LABS: Alanine Aminotransferase 25 U/L (6-50); Albumin Level 4.4 g/dL (3.5-5.1); Alkaline Phosphatase 99 U/L (38-126); Anion Gap 7 mmol/L (8-16); Aspartate Amino Transferase 31 U/L (17-59); Bilirubin,Total 1.6 mg/dL (0.2-1.3); Blood Urea Nitrogen 19 mg/dL (9-20); Calcium 9.4 mg/dL (8.4-10.2); Carbon Dioxide 37 mmol/L (22-30); Chloride 94 mmol/L (98-107); Estimated Glomerular Filt Rate > 60; Glucose 109 mg/dL (65-110); Partial Thromboplastin Time 33.2 SECONDS (22.3-36.8); Potassium 3.7 mmol/L (3.4-5.0); Sodium 138 mmol/L (137-145)
[2023-06-09 13:55] LABS: NT Pro B Type Natriuretic Pept 81 pg/mL (19.9-100); Troponin I < 0.012 ng/mL (0.000-0.034)
[2023-06-09 14:08] LABS: Influenza A QL RT-PCR Negative (Negative); Influenza B QL RT-PCR Negative (Negative); RSV RNA, RT-PCR Negative (Negative); SARS-CoV-2 RNA PCR Negative (Negative)
[2023-06-09] MEDS: AZITHROMYCIN 500 MG/NS 250 ML 500 MG/250 ML BAG 250 MG IVPB (16:28)
[2023-06-09] MEDS: ALBUTEROL SULFATE NEB 2.5 MG/3 ML INH INHALATION ×2 (16:57→20:55)
--- NOTE | 2023-06-09 16:59 | PM.IMHP ---
H&P: HPI History of Present Illness Date/Time: 06/09/23 19:30 Chief Complaint: Low oxygen saturation and cough. Narrative: This is a very pleasant 68-year-old male with history of tobacco abuse, partial pneumonectomy for lung infection 1989, bullous emphysema, chronic obstructive pulmonary disease, stroke with right-sided weakness, coronary artery disease with remote history of stents, hypertension, hyperlipidemia, and anxiety who presented to the emergency department from home for evaluation of low oxygen saturations and cough. The patient provides the following history. He has not been feeling well since Friday with multiple symptoms including generalized weakness, poor appetite, nausea, vomiting, loose stools, shortness of breath with exertion, and cough productive of dark brown and occasionally bloody sputum. He has some chest pain is well with coughing but nothing significant. He denies sinus congestion, sore throat, weight loss, recent travel, and sick contacts. In the ED: He was afebrile on arrival. Blood pressures have been running a bit high. SpO2 was 85% on room air on arrival and he is currently on 2 L nasal cannula. He tested negative for influenza, RSV, and COVID. Chest CTA was negative for pulmonary embolus but did show severe emphysema and pneumonia involving the right lower lobe and left upper lobe. He was given a DuoNeb in addition to a dose of azithromycin and ceftriaxone he is being admitted in this setting for further treatment. Review of Systems Review of Systems: 12 systems were reviewed and are negative except for as per HPI. [facility] Past Medical History Medical History (Updated 06/09/23 @ 21:57 by Demetria Gillis PA-C) Bullous emphysema Cerebrovascular accident X3 with resultant right-sided weakness. Chronic anemia Chronic obstructive pulmonary disease Chronic pain Smokes medical marijuana. Coronary artery disease Former heavy tobacco smoker Lung mass Myocardial infarction Surgical History Surgical History History of appendectomy History of cardiac catheterization (2003) History of percutaneous coronary intervention (2003) History of pneumonectomy (1989) Family History Family History Father Hypertension Chronic obstructive pulmonary disease Mother Hypertension Chronic obstructive pulmonary disease Sibling Hypertension Social History Social History Social History: Surrogate medical decision maker: Ashlee Hyde, spouse. Code status: Full code. Smoking packs per day: 3 Smoking cigarettes per day: 60.0 Years smoked: 48 Smoking pack-years: 144.00 Smoking status: Former smoker Tobacco type: cigarettes Second hand tobacco smoke exposure: Yes Smoking end date: 02/24/15 Alcohol intake: never Substance use: former Substance use type: marijuana Other substance usage details: Smokes medical marijuana for pain. Last use: 02/22/22 Do You Feel Safe in your Home?: Yes Lack of Transportation: No Lack of Food: Never True Current Housing: I Have Housing Concerned About Future Housing: No Difficulty Paying Gas/Electric Bills: No Difficulty Paying for Meds: No Currently Unemployed: No Education: Grade School Difficulty w/ Childcare or Family Care: No Living arrangements: with family Additional living arrangements comments: The patient lives with his in [place]. 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 Spiritual care concerns: No Agree to blood products: No Meds Home Medications and Allergies Home Medications Medication Instructions Recorded Confirmed Type Tylenol PM 2 tab-cap PO HS 06/09/23 06/09/23 History aspirin 81 mg capsule 81 mg PO HS 06/09/23 06/09/23 History clonazepam 0.5 mg tablet 0.5 mg PO GEETHA
--- NOTE | 2023-06-09 17:05 | ECG_ITS ---
Measurements Intervals [place] Rate: 89 P: 48 [place]: 146 QRS: 44 QRSD: 86 T: 76 QT: 406 QTc: 496 Interpretive Statements SINUS RHYTHM WITH FREQUENT VENTRICULAR PREMATURE COMPLEXES NONSPECIFIC ST & T-WAVE ABNORMALITY ABNORMAL RHYTHM ECG COMPARED TO ECG 06/09/2023 13:43:10 VENTRICULAR ECTOPICS ARE DEMONSTRATE, ISCHEMIC ST SEGMENT DEPRESSION IS IMPROVED Electronically Signed On 06-09-2023 18:42:19 CAPTION WRITER by Henri Patel M.D.
--- NOTE | 2023-06-09 17:24 | PC.NURSE ---
Meal tray ordered
--- NOTE | 2023-06-09 20:03 | PC.NURSE ---
Patient stated that his neck/back pain, that is chronic, is getting worse laying in the bed. Notified IMELDA Gutierrez
--- NOTE | 2023-06-09 20:23 | PC.NURSE ---
Pulled PRN Tylenol for patient for his pain. Patient refused the Tylenol and stated That won't do no damn good . Tylenol returned to the Pyxis.
[2023-06-09] MEDS: traZODone HCL 50 MG TABLET PO (23:59)
[2023-06-09] MEDS: SIMVASTATIN 20 MG TABLET PO (23:59)
[2023-06-09] MEDS: lisinopriL 5 MG TABLET PO (23:59)
[2023-06-09] MEDS: diphenhydrAMINE HCl CAP 25 MG CAPSULE 50 MG PO (23:59)
[2023-06-09] MEDS: ACETAMINOPHEN 500 MG TABLET 1000 MG PO (23:59)
[2023-06-10] VITALS (22 sets, daily range): BP systolic 123–145; BP diastolic 49–71; PULSE 61–89; RESP 18; TEMP 36.9–37.3; O2SAT 93–95
[2023-06-10] MEDS: ALBUTEROL SULFATE NEB 2.5 MG/3 ML INH INHALATION (02:11)
[2023-06-10 05:20] LABS: Hematocrit 27.9 % (42.0-52.0); Hemoglobin 8.8 g/dL (14.0-18.0); Mean Corpuscular HGB Conc 31.5 g/dl (32-36); Mean Corpuscular Hemoglobin 29.1 pg (26-34); Mean Corpuscular Volume 92.4 fl (80-100); Mean Platelet Volume 11.2 fl (7.4-10.4); Platelet Count Result 320 k/mm3 (150-375); Red Blood Count 3.02 M/mm3 (4.6-6.20); Red Cell Distribution Width 12.4 % (11.5-14.5); White Blood Count 13.5 K/mm3 (4.5-10.0)
[2023-06-10 05:34] LABS: Anion Gap 4 mmol/L (8-16); Blood Urea Nitrogen 18 mg/dL (9-20); Calcium 8.9 mg/dL (8.4-10.2); Carbon Dioxide 36 mmol/L (22-30); Chloride 97 mmol/L (98-107); Estimated CRCL calculation 72 ml/min; Estimated Glomerular Filt Rate > 60; Glucose 103 mg/dL (65-110); Magnesium 2.2 mg/dL (1.6-2.3); Potassium 3.3 mmol/L (3.4-5.0); Sodium 137 mmol/L (137-145)
--- NOTE | 2023-06-10 07:30 | P.PNIM_ITS ---
Progress Note: A&P Assessment and Plan (1) Pneumonia: Code(s): J18.9 - Pneumonia, unspecified organism Status: Acute (2) Hypoxia: Code(s): R09.02 - Hypoxemia Status: Acute (3) Hemoptysis: Code(s): R04.2 - Hemoptysis Status: Acute (4) Chronic obstructive pulmonary disease: Code(s): J44.9 - Chronic obstructive pulmonary disease, unspecified Status: Acute (5) Chronic anemia: Code(s): D64.9 - Anemia, unspecified Status: Acute (6) History of stroke: Code(s): Z86.73 - Personal history of transient ischemic attack (TIA), and cerebral infarction without residual deficits Status: Acute (7) Acute respiratory failure with hypoxia: Code(s): J96.01 - Acute respiratory failure with hypoxia Status: Acute Plan Acute respiratory failure with hypoxia secondary to pneumonia and COPD * Per medical chart O2 was 85% POA * hemoptysis continues Hgb dropped from 12.8 to 8.8 under 24 hours * Pulmonary consulted * CT scan severe emphysema, right lower lobe and left upper lobe pneumonia * Wbc's 13.5 * previous hx * Follow-up H&H * Bronchodilators. * Chest x-ray * incentive spirometry while awake. * sputum culture ordered * influenza/COVID/RSV negative * respiratory panel pending * antibiotic therapy changed ceftriaxone to cefepime for Pseudomonas coverage, azithromycin MRSA pending * supplemental oxygen therapy to maintain oxygen 92% Currently on 2L NC * CMP/CBC daily Hemoptysis * Underlying PNA * pulmonary consulted * may need bronchoscopy * HGB 12.8 on admission 8.8 in less than 24 hours * F/U H&H ordered will need Q6hr H&H monitoring * Patient still reporting hemoptysis HX CVA * Rt sided weakness * PT/OT wwhen stable * holding ASA due to hemoptysis/anemia Hypokalemia * 3.3 * replenished with 40 meq * f/u BMP CAD * Stable Code status: Full code per patient DVT prophylaxis: SCD's Stress ulcer prophylaxis: Protonix 40 BID PT/OT notes: PT/OT on hold Disposition: Patient continues admission to the medical surgical unit for further treatment pneumonia with hemoptysis patient to have consult to pulmonology continue with antibiotic therapy monitoring H&H. Patient has history of CVA with right-sided weakness will order PT OT when stable patient reports plan to return home. Time Spent With Patient Time with patient: 25 - 35 minutes Subjective Date/time seen: 06/10/23 07:30 Interval history: H&P (Medical Record) Chief Complaint: Low oxygen saturation and cough. Narrative: This is a very pleasant 68-year-old male with history of tobacco abuse, partial pneumonectomy for lung infection 1989, bullous emphysema, chronic obstructive pulmonary disease, stroke with right-sided weakness, coronary artery disease with remote history of stents, hypertension, hyperlipidemia, and anxiety who presented to the emergency department from home for evaluation of low oxygen saturations and cough. The patient provides the following history. He has not been feeling well since Friday with multiple symptoms including generalized weakness, poor appetite, nausea, vomiting, loose stools, shortness of breath with exertion, and cough productive of dark brown and occasionally bloody sputum. He has some chest pain is well with coughing but nothing significant. He denies sinus congestion, sore throat, weight loss, recent travel, and sick contacts. In the ED: He was afebrile on arri
--- NOTE | 2023-06-10 07:30 | PM.IMPN ---
Progress Note: A&P Assessment and Plan (1) Pneumonia: Code(s): J18.9 - Pneumonia, unspecified organism Status: Acute (2) Hypoxia: Code(s): R09.02 - Hypoxemia Status: Acute (3) Hemoptysis: Code(s): R04.2 - Hemoptysis Status: Acute (4) Chronic obstructive pulmonary disease: Code(s): J44.9 - Chronic obstructive pulmonary disease, unspecified Status: Acute (5) Chronic anemia: Code(s): D64.9 - Anemia, unspecified Status: Acute (6) History of stroke: Code(s): Z86.73 - Personal history of transient ischemic attack (TIA), and cerebral infarction without residual deficits Status: Acute (7) Acute respiratory failure with hypoxia: Code(s): J96.01 - Acute respiratory failure with hypoxia Status: Acute Plan Acute respiratory failure with hypoxia secondary to pneumonia and COPD Per medical chart O2 was 85% POA hemoptysis continues Hgb dropped from 12.8 to 8.8 under [address] scan severe emphysema, right lower lobe and left upper lobe pneumonia Wbc's 13.5 previous hx Follow-up H&H Bronchodilators. Chest x-ray incentive spirometry while awake. sputum culture ordered influenza/COVID/RSV negative respiratory panel pending antibiotic therapy changed ceftriaxone to cefepime for Pseudomonas coverage, azithromycin MRSA pending supplemental oxygen therapy to maintain oxygen 92% Currently on 2L NC CMP/CBC daily Hemoptysis Underlying PNA pulmonary consulted may need bronchoscopy HGB 12.8 on admission 8.8 in less than 24 hours F/U H&H ordered will need Q6hr H&H monitoring Patient still reporting hemoptysis HX CVA Rt sided weakness PT/OT wwhen stable holding ASA due to hemoptysis/anemia Hypokalemia 3.3 replenished with 40 meq f/u BMP CAD Stable Code status: Full code per patient DVT prophylaxis: SCD's Stress ulcer prophylaxis: Protonix 40 BID PT/OT notes: PT/OT on hold Disposition: Patient continues admission to the medical surgical unit for further treatment pneumonia with hemoptysis patient to have consult to pulmonology continue with antibiotic therapy monitoring H&H. Patient has history of CVA with right-sided weakness will order PT OT when stable patient reports plan to return home. Time Spent With Patient Time with patient: 25 - 35 minutes Subjective Date/time seen: 06/10/23 07:30 Interval history: H&P (Medical Record) Chief Complaint: Low oxygen saturation and cough. Narrative: This is a very pleasant 68-year-old male with history of tobacco abuse, partial pneumonectomy for lung infection 1989, bullous emphysema, chronic obstructive pulmonary disease, stroke with right-sided weakness, coronary artery disease with remote history of stents, hypertension, hyperlipidemia, and anxiety who presented to the emergency department from home for evaluation of low oxygen saturations and cough. The patient provides the following history. He has not been feeling well since Friday with multiple symptoms including generalized weakness, poor appetite, nausea, vomiting, loose stools, shortness of breath with exertion, and cough productive of dark brown and occasionally bloody sputum. He has some chest pain is well with coughing but nothing significant. He denies sinus congestion, sore throat, weight loss, recent travel, and sick contacts. In the ED: He was afebrile on arrival. Blood pressures have been running a bit high. SpO2 was 85% on room air on arrival and he is currently on 2 L nasal cannula. He tested negative for influenza, RSV, and COVID. Chest CTA was negative for pulmonary embolus but did show severe emphysema and pneumonia involving the right lower lobe and left upper lobe. He was given a DuoNeb in addition to a dose of azithromycin and ceftriaxone he is being admitted in this setting for further treatment. 06/10: Patient with previous history of hemoptysi
[2023-06-10] MEDS: IPRATROPIUM 0.5 MG/ALBUTEROL SULFATE 2.5 MG AMPUL.NEB 3 ML INHALATION ×3 (07:49→19:27)
[2023-06-10] MEDS: AZITHROMYCIN 500 MG/NS 250 ML 500 MG/250 ML BAG 250 MG IVPB (08:47)
[2023-06-10] MEDS: METOPROLOL TARTRATE 12.5 MG TABLET PO ×3 (08:48→16:55)
[2023-06-10] MEDS: PANTOPRAZOLE SODIUM IV 40 MG VIAL IV PUSH ×2 (08:48→20:47)
[2023-06-10] MEDS: guaiFENesin 12 HR 600 MG TABCR PO ×3 (08:49→20:46)
--- NOTE | 2023-06-10 08:54 | PM.CNPUL ---
Assessment and Plan Assessment and plan (1) Acute respiratory failure with hypoxia: Code(s): J96.01 - Acute respiratory failure with hypoxia Status: Acute (2) Chronic obstructive pulmonary disease: Code(s): J44.9 - Chronic obstructive pulmonary disease, unspecified Status: Acute (3) Pneumonia: Code(s): J18.9 - Pneumonia, unspecified organism Status: Acute Assessment and Plan: A 68-year-old male, with a history of advanced COPD linked to bullous emphysema and currently not on any COPD treatment, presented with symptoms of shortness of breath, hypoxemia, hemoptysis, and new infiltrates observed on chest imaging studies, indicative of pneumonia. A chest CT scan revealed, in addition to advanced bullous emphysema, infiltrates in the left upper lobe and right lower lobe, most likely due to pneumonia. Compared to a previous chest CT performed during the last hospitalization in February 2022, no new mass or pulmonary embolism was detected. The patient's hemoptysis is likely associated with a lower respiratory tract infection and advanced emphysema. The patient has not experienced hemoptysis in the past 24 hours. The decrease in hemoglobin is likely not related to hemoptysis, as there has been no deterioration in respiratory failure since hospital admission. The patient continues to require supplemental oxygen via a low-flow nasal cannula. Plan: The current antibiotic regimen for bilateral pneumonia in a patient with severe COPD and bullous emphysema is appropriate. A repeat chest x-ray and arterial blood gases should be performed to rule out chronic hypercapnia, and the patient should be screened for MRSA. A sputum culture and a repeat PCR test for all common viruses are also recommended. I will continue to monitor the patient's progress. (4) Hemoptysis: Code(s): R04.2 - Hemoptysis Status: Acute (5) Bullous emphysema: Code(s): J43.9 - Emphysema, unspecified Status: Acute (6) Coronary artery disease: Code(s): I25.10 - Atherosclerotic heart disease of [place] coronary artery without angina pectoris Status: Acute History of Present Illness History of Present Illness Consult date: 06/10/23 Chief complaint: Pneumonia/Hypoxia Narrative: A 68-year-old male patient with a medical history including tobacco use, partial pneumonectomy due to a lung infection years ago, bullous emphysema, chronic obstructive pulmonary disease, stroke leading to right-sided weakness, coronary artery disease with a distant history of stents, hypertension, hyperlipidemia, and anxiety, reported to the emergency department. He was experiencing malaise, shortness of breath, chest congestion, and a cough that had lasted for several days. The patient mentioned having three instances of bloody sputum the previous day, with the last occurrence of hemoptysis taking place in the early afternoon. Upon evaluation in the emergency room, he was diagnosed with hypoxemia. Chest imaging revealed advanced bullous emphysema and new infiltrates in the right lower lobe and left upper lobe. PCR tests for common viruses returned negative results. The patient denied experiencing chest pain, fever, chills, or lower extremity edema. He has a history of chronic orthopnea but no history of lower extremity edema. He has not been taking any medication for his COPD. Similar symptoms led to his hospitalization in February 2022. Due to persistent hemoptysis over several days, he was transferred to a tertiary hospital. Unfortunately, the patient could not recall the specific hospital or the exact treatment he received. He stated that during that hospitalization, fluid was drained from his chest and he was treated for pneumonia. Since being admitted to the hospital, his respiratory status has remained stable. He continues to rely on supplemental oxygen at 2 liters per minute and confirmed that he has not had any further instances of hemoptysis since 2:00 p.
[2023-06-10] MEDS: POTASSIUM CHLORIDE INJ 40 MEQ in SODIUM CHLORIDE 0.9% IV 500 ML 130 MEQ IVPB (09:02)
[2023-06-10 09:48] LABS: MRSA (PCR) NOT DETECTED (NOT DETECTE)
[2023-06-10 09:52] LABS: Hematocrit 33.5 % (42.0-52.0); Hemoglobin 10.8 g/dL (14.0-18.0)
[2023-06-10] MEDS: CEFEPIME 2 GM/NS 50 ML 2 GM/50 ML BAG IVPB ×2 (09:53→16:57)
--- NOTE | 2023-06-10 10:59 | PCRCNOTE ---
1st attempt with ABG RT was unable to receive enough for sample. Patient refused for a 2nd attempt to be made to receive an ABG sample.
[2023-06-10] MEDS: HYDROcodone/acetaminophen (*CRX) 5-325 MG TABLET 1 TAB PO ×2 (12:52→20:46)
[2023-06-10] MEDS: lisinopriL 5 MG TABLET PO (20:46)
[2023-06-10] MEDS: traZODone HCL 50 MG TABLET PO (20:46)
[2023-06-10] MEDS: ACETAMINOPHEN 500 MG TABLET 1000 MG PO (20:46)
[2023-06-10] MEDS: LOPERAMIDE HCL 2 MG CAPSULE PO (20:46)
[2023-06-10] MEDS: diphenhydrAMINE HCl CAP 25 MG CAPSULE 50 MG PO (20:46)
[2023-06-10] MEDS: GABAPENTIN 300 MG CAPSULE PO ×2 (20:46)
[2023-06-10] MEDS: SIMVASTATIN 20 MG TABLET PO (20:47)
[2023-06-11] VITALS (20 sets, daily range): BP systolic 121–157; BP diastolic 48–76; PULSE 67–99; RESP 16–18; TEMP 36.6–37.9; O2SAT 92–98
[2023-06-11] MEDS: CEFEPIME 2 GM/NS 50 ML 2 GM/50 ML BAG IVPB ×3 (00:37→17:59)
[2023-06-11] MEDS: IPRATROPIUM 0.5 MG/ALBUTEROL SULFATE 2.5 MG AMPUL.NEB 3 ML INHALATION ×4 (01:39→20:39)
[2023-06-11 05:51] LABS: Hematocrit 33.1 % (42.0-52.0); Hemoglobin 10.4 g/dL (14.0-18.0); Mean Corpuscular HGB Conc 31.4 g/dl (32-36); Mean Corpuscular Hemoglobin 29.4 pg (26-34); Mean Corpuscular Volume 93.5 fl (80-100); Mean Platelet Volume 11.1 fl (7.4-10.4); Platelet Count Result 263 k/mm3 (150-375); Red Blood Count 3.54 M/mm3 (4.6-6.20); Red Cell Distribution Width 12.4 % (11.5-14.5); White Blood Count 10.9 K/mm3 (4.5-10.0)
[2023-06-11 06:07] LABS: Alanine Aminotransferase 16 U/L (6-50); Albumin Level 3.6 g/dL (3.5-5.1); Alkaline Phosphatase 84 U/L (38-126); Anion Gap 2 mmol/L (8-16); Aspartate Amino Transferase 23 U/L (17-59); Bilirubin,Total 1.1 mg/dL (0.2-1.3); Blood Urea Nitrogen 19 mg/dL (9-20); Calcium 8.7 mg/dL (8.4-10.2); Carbon Dioxide 34 mmol/L (22-30); Chloride 101 mmol/L (98-107); Estimated CRCL calculation 72 ml/min; Estimated Glomerular Filt Rate > 60; Glucose 96 mg/dL (65-110); Potassium 3.4 mmol/L (3.4-5.0); Sodium 137 mmol/L (137-145)
[2023-06-11] MEDS: METOPROLOL TARTRATE 12.5 MG TABLET PO ×2 (08:28→17:59)
[2023-06-11] MEDS: guaiFENesin 12 HR 600 MG TABCR PO ×2 (08:28→20:09)
[2023-06-11] MEDS: AZITHROMYCIN 500 MG/NS 250 ML 500 MG/250 ML BAG 250 MG IVPB (08:29)
[2023-06-11] MEDS: PANTOPRAZOLE SODIUM IV 40 MG VIAL IV PUSH ×2 (08:33→20:10)
[2023-06-11] MEDS: HYDROcodone/acetaminophen (*CRX) 5-325 MG TABLET 1 TAB PO ×2 (08:41→18:07)
--- NOTE | 2023-06-11 09:21 | PM.PNPUL ---
Progress Note: A&P Assessment and Plan (1) Acute respiratory failure with hypoxia: Code(s): J96.01 - Acute respiratory failure with hypoxia Status: Acute Assessment and Plan: A 68-year-old male, with a history of advanced COPD linked to bullous emphysema and currently not on any COPD treatment, presented with symptoms of shortness of breath, hypoxemia, hemoptysis, and new infiltrates observed on chest imaging studies, indicative of pneumonia. A chest CT scan revealed, in addition to advanced bullous emphysema, infiltrates in the left upper lobe and right lower lobe, most likely due to pneumonia. Compared to a previous chest CT performed during the last hospitalization in February 2022, no new mass or pulmonary embolism was detected. The patient's hemoptysis is likely associated with a lower respiratory tract infection and advanced emphysema. Patient has been coughing up some dark sputum related to old blood clots. He has not had any fresh blood in his sputum. Otherwise there has been no change in his respiratory status over the last 24 hours. Hemoglobin higher today while the WBC trending down. Sputum culture pending. Plan: Will continue with current regimen of antibiotics for bilateral pneumonia. Will be monitoring respiratory status and type of hemoptysis. Lower extremity study to rule out DVT. (2) Chronic obstructive pulmonary disease: Code(s): J44.9 - Chronic obstructive pulmonary disease, unspecified Status: Acute (3) Bullous emphysema: Code(s): J43.9 - Emphysema, unspecified Status: Acute (4) Pneumonia: Code(s): J18.9 - Pneumonia, unspecified organism Status: Acute (5) Hemoptysis: Code(s): R04.2 - Hemoptysis Status: Acute Subjective Date/time seen: 06/11/23 09:21 Interval history: Patient has no new respiratory complaints. He continues to have blood tinged sputum. Since yesterday his sputum now looks dark consistent with all blood clots. He has had no fresh blood in sputum over the last 24 hours. He remains on supplemental oxygen. Review of Systems Review of Systems: All systems reviewed & are unremarkable except as noted in HPI and below (HPI and below) Exam Narrative: GENERAL APPEARANCE: Well developed, well nourished, alert and cooperative, and appears to be in no acute distress while on supplemental oxygen SKIN: Inspection of the skin reveals no rashes, ulcerations or petechiae. HEENT: Sclerae anicteric and conjunctivae pink and moist. Extraocular movements were intact and pupils were equal, round, and reactive to light. Poor oral hygiene. NECK: Supple. There was no thyroid enlargement, and no tenderness, or masses were felt. No JVD. LUNGS: Distant breath sounds bilaterally, crackles at bases posteriorly right greater than left CARDIAC: There was a regular rate and rhythm without any murmurs, gallops, rubs. ABDOMEN: Soft and nontender with normal bowel sounds. There was no organomegaly. LYMPH NODES: No lymphadenopathy was appreciated in the neck. EXTREMITIES: No cyanosis, or edema. Mild clubbing upper extremities NEUROLOGIC: Alert and oriented x 3. Normal affect. Objective Data Vital Signs Vital Signs: Vital Signs - 24 hr 06/10/23 12:04 06/10/23 13:50 06/10/23 14:02 Temperature Pulse Rate 86 72 69 Respiratory Rate 18 18 Blood Pressure Pulse Oximetry Oxygen Delivery Oxygen Flow Rate 06/10/23 14:00 06/10/23 16:00 06/10/23 16:55 Temperature 36.9 C Pulse Rate 78 79 80 Respiratory Rate 18 Blood Pressure 130/60 Pulse Oximetry 93 Oxygen Delivery Oxygen Flow Rate 06/10/23 19:23 06/10/23 19:27 06/10/23 19:48 Temperature 37.3 C Pulse Rate 78 67 71 Respiratory Rate 18 18 18 Blood Pressure 145/71 H Pulse Oximetry 94 Oxygen Delivery Oxygen Flow Rate 06/10/23 19:49 06/10/23 20:00 06/10/23 20:00 Temperature Pulse Rate 71 82 Respiratory Rate 18 Blood Pressure
--- NOTE | 2023-06-11 09:49 | P.PNIM_ITS ---
Progress Note: A&P Assessment and Plan (1) Pneumonia: Code(s): J18.9 - Pneumonia, unspecified organism Status: Acute (2) Hypoxia: Code(s): R09.02 - Hypoxemia Status: Acute (3) Hemoptysis: Code(s): R04.2 - Hemoptysis Status: Acute (4) Chronic obstructive pulmonary disease: Code(s): J44.9 - Chronic obstructive pulmonary disease, unspecified Status: Acute (5) Chronic anemia: Code(s): D64.9 - Anemia, unspecified Status: Acute (6) History of stroke: Code(s): Z86.73 - Personal history of transient ischemic attack (TIA), and cerebral infarction without residual deficits Status: Acute (7) Acute respiratory failure with hypoxia: Code(s): J96.01 - Acute respiratory failure with hypoxia Status: Acute Plan Acute respiratory failure with hypoxia secondary to pneumonia and COPD * Patient currently RA saturating 94% * Denies any hemoptysis in the past 24 hours * Pulmonary consulted appreciate recommendation and plan * CT scan severe emphysema, right lower lobe and left upper lobe pneumonia * Wbc's 10.9 * previous hx * Follow-up H&H * Bronchodilators. * incentive spirometry while awake. * sputum culture pending * influenza/COVID/RSV negative * respiratory panel pending * antibiotic therapy changed ceftriaxone to cefepime for Pseudomonas coverage, azithromycin MRSA pending * Continue oxygen therapy titration to maintain oxygen > 92% Currently on RA * CMP/CBC daily Hemoptysis * Underlying PNA * pulmonary consulted appreciate recommendation and plan * may need bronchoscopy * HGB 12.8 on admission 10.4 * F/U H&H ordered will need Q6hr H&H monitoring * Patient denies hemoptysis HX CVA * Rt sided weakness * PT/OT when stable * holding ASA due to hemoptysis/anemia Hypokalemia resolved * 3.4 * replenished with 40 meq * f/u BMP CAD * Stable Code status: Full code per patient DVT prophylaxis: SCD's Stress ulcer prophylaxis: Protonix 40 BID PT/OT notes: PT/OT on hold Disposition: Patient continues admission to the medical surgical unit for further treatment pneumonia with hemoptysis patient to have consult to pulmonology continue with antibiotic therapy monitoring H&H. Patient has history of CVA with right-sided weakness will order PT OT when stable patient reports plan to return home. Subjective Date/time seen: 06/11/23 09:49 Interval history: Narrative: This is a very pleasant 68-year-old male with history of tobacco abuse, partial pneumonectomy for lung infection 1989, bullous emphysema, chronic obstructive pulmonary disease, stroke with right-sided weakness, coronary artery disease with remote history of stents, hypertension, hyperlipidemia, and anxiety who presented to the emergency department from home for evaluation of low oxygen saturations and cough. The patient provides the following history. He has not b een feeling well since Friday with multiple symptoms including generalized weakness, poor appetite, nausea, vomiting, loose stools, shortness of breath with exertion, and cough productive of dark brown and occasionally bloody sputum. He has some chest pain is well with coughing but nothing significant. He denies sinus congestion, sore throat, weight loss, recent travel, and sick contacts. In the ED: He was afebrile on arrival. Blood pressures have been running a bit high. SpO2 was 85% on room air on arrival and he is currently on 2 L nasal cannula. He tested negative f
--- NOTE | 2023-06-11 09:49 | PM.IMPN ---
Progress Note: A&P Assessment and Plan (1) Pneumonia: Code(s): J18.9 - Pneumonia, unspecified organism Status: Acute (2) Hypoxia: Code(s): R09.02 - Hypoxemia Status: Acute (3) Hemoptysis: Code(s): R04.2 - Hemoptysis Status: Acute (4) Chronic obstructive pulmonary disease: Code(s): J44.9 - Chronic obstructive pulmonary disease, unspecified Status: Acute (5) Chronic anemia: Code(s): D64.9 - Anemia, unspecified Status: Acute (6) History of stroke: Code(s): Z86.73 - Personal history of transient ischemic attack (TIA), and cerebral infarction without residual deficits Status: Acute (7) Acute respiratory failure with hypoxia: Code(s): J96.01 - Acute respiratory failure with hypoxia Status: Acute Plan Acute respiratory failure with hypoxia secondary to pneumonia and COPD Patient currently RA saturating 94% Denies any hemoptysis in the past 24 hours Pulmonary consulted appreciate recommendation and plan CT scan severe emphysema, right lower lobe and left upper lobe pneumonia Wbc's 10.9 previous hx Follow-up H&H Bronchodilators. incentive spirometry while awake. sputum culture pending influenza/COVID/RSV negative respiratory panel pending antibiotic therapy changed ceftriaxone to cefepime for Pseudomonas coverage, azithromycin MRSA pending Continue oxygen therapy titration to maintain oxygen > 92% Currently on RA CMP/CBC daily Hemoptysis Underlying PNA pulmonary consulted appreciate recommendation and plan may need bronchoscopy HGB 12.8 on admission 10.4 F/U H&H ordered will need Q6hr H&H monitoring Patient denies hemoptysis HX CVA Rt sided weakness PT/OT when stable holding ASA due to hemoptysis/anemia Hypokalemia resolved 3.4 replenished with 40 meq f/u BMP CAD Stable Code status: Full code per patient DVT prophylaxis: SCD's Stress ulcer prophylaxis: Protonix 40 BID PT/OT notes: PT/OT on hold Disposition: Patient continues admission to the medical surgical unit for further treatment pneumonia with hemoptysis patient to have consult to pulmonology continue with antibiotic therapy monitoring H&H. Patient has history of CVA with right-sided weakness will order PT OT when stable patient reports plan to return home. Subjective Date/time seen: 06/11/23 09:49 Interval history: Narrative: This is a very pleasant 68-year-old male with history of tobacco abuse, partial pneumonectomy for lung infection 1989, bullous emphysema, chronic obstructive pulmonary disease, stroke with right-sided weakness, coronary artery disease with remote history of stents, hypertension, hyperlipidemia, and anxiety who presented to the emergency department from home for evaluation of low oxygen saturations and cough. The patient provides the following history. He has not been feeling well since Friday with multiple symptoms including generalized weakness, poor appetite, nausea, vomiting, loose stools, shortness of breath with exertion, and cough productive of dark brown and occasionally bloody sputum. He has some chest pain is well with coughing but nothing significant. He denies sinus congestion, sore throat, weight loss, recent travel, and sick contacts. In the ED: He was afebrile on arrival. Blood pressures have been running a bit high. SpO2 was 85% on room air on arrival and he is currently on 2 L nasal cannula. He tested negative for influenza, RSV, and COVID. Chest CTA was negative for pulmonary embolus but did show severe emphysema and pneumonia involving the right lower lobe and left upper lobe. He was given a DuoNeb in addition to a dose of azithromycin and ceftriaxone he is being admitted in this setting for further treatment. 06/10: Patient with previous history of hemoptysis/PNA/Lung mass back in 2021 and was transferred for pulmonary hemorrhage, patient presented with same symptoms CTA show
[2023-06-11] MEDS: LOPERAMIDE HCL 2 MG CAPSULE PO (14:18)
[2023-06-11] MEDS: diphenhydrAMINE HCl CAP 25 MG CAPSULE 50 MG PO (20:09)
[2023-06-11] MEDS: ACETAMINOPHEN 500 MG TABLET 1000 MG PO (20:09)
[2023-06-11] MEDS: GABAPENTIN 300 MG CAPSULE PO (20:10)
[2023-06-11] MEDS: lisinopriL 5 MG TABLET PO (20:10)
[2023-06-11] MEDS: SIMVASTATIN 20 MG TABLET PO (20:10)
[2023-06-11] MEDS: traZODone HCL 50 MG TABLET PO (20:10)
[2023-06-12] VITALS (22 sets, daily range): BP systolic 150–174; BP diastolic 52–75; PULSE 67–95; RESP 16–18; TEMP 36.6–37.3; O2SAT 92–98; BMI 22.1
[2023-06-12] MEDS: CEFEPIME 2 GM/NS 50 ML 2 GM/50 ML BAG IVPB ×3 (02:30→17:18)
[2023-06-12] MEDS: IPRATROPIUM 0.5 MG/ALBUTEROL SULFATE 2.5 MG AMPUL.NEB 3 ML INHALATION ×4 (02:32→20:41)
[2023-06-12] MEDS: ACETAMINOPHEN 325 MG TABLET 650 MG PO (05:59)
[2023-06-12 06:18] LABS: Hematocrit 32.5 % (42.0-52.0); Hemoglobin 10.4 g/dL (14.0-18.0); Mean Corpuscular Hemoglobin 29.7 pg (26-34); Mean Corpuscular Volume 92.9 fl (80-100); Mean Platelet Volume 11.2 fl (7.4-10.4); Platelet Count Result 293 k/mm3 (150-375); Red Cell Distribution Width 12.6 % (11.5-14.5); White Blood Count 11.8 K/mm3 (4.5-10.0)
[2023-06-12 06:37] LABS: Alanine Aminotransferase 15 U/L (6-50); Albumin Level 3.8 g/dL (3.5-5.1); Alkaline Phosphatase 92 U/L (38-126); Anion Gap 4 mmol/L (8-16); Aspartate Amino Transferase 27 U/L (17-59); Bilirubin,Total 1.1 mg/dL (0.2-1.3); Blood Urea Nitrogen 16 mg/dL (9-20); Calcium 8.7 mg/dL (8.4-10.2); Carbon Dioxide 33 mmol/L (22-30); Chloride 100 mmol/L (98-107); Estimated CRCL calculation 71 ml/min; Estimated Glomerular Filt Rate > 60; Glucose 90 mg/dL (65-110); Potassium 3.4 mmol/L (3.4-5.0); Sodium 137 mmol/L (137-145)
--- NOTE | 2023-06-12 08:17 | PM.PNPUL ---
Progress Note: A&P Assessment and Plan (1) Acute respiratory failure with hypoxia: Code(s): J96.01 - Acute respiratory failure with hypoxia Status: Acute Assessment and Plan: A 68-year-old male, with a history of advanced COPD linked to bullous emphysema and currently not on any COPD treatment, presented with symptoms of shortness of breath, hypoxemia, hemoptysis, and new infiltrates observed on chest imaging studies, indicative of pneumonia. A chest CT scan revealed, in addition to advanced bullous emphysema, infiltrates in the left upper lobe and right lower lobe, most likely due to pneumonia. Compared to a previous chest CT performed during the last hospitalization in February 2022, no new mass or pulmonary embolism was detected. The patient's hemoptysis is likely associated with a lower respiratory tract infection and advanced emphysema. Patient has been coughing up some dark sputum related to old blood clots. He has not had any fresh blood in his sputum. Currently on room air. Sputum culture pending. No DVT in lower extremities. Plan: Will continue with current regimen of antibiotics for bilateral pneumonia. Will be monitoring respiratory status and type of hemoptysis. Initiate DVT prophylaxis, out of bed to chair. (2) Chronic obstructive pulmonary disease: Code(s): J44.9 - Chronic obstructive pulmonary disease, unspecified Status: Acute (3) Bullous emphysema: Code(s): J43.9 - Emphysema, unspecified Status: Acute (4) Pneumonia: Code(s): J18.9 - Pneumonia, unspecified organism Status: Acute (5) Hemoptysis: Code(s): R04.2 - Hemoptysis Status: Acute Subjective Date/time seen: 06/12/23 08:17 Interval history: Patient feels better today. Has had no dark sputum since yesterday. Currently on room air. Afebrile. Review of Systems Review of Systems: All systems reviewed & are unremarkable except as noted in HPI and below (HPI and below) Exam Narrative: GENERAL APPEARANCE: Well developed, well nourished, alert and cooperative, and appears to be in no acute distress while on RA SKIN: Inspection of the skin reveals no rashes, ulcerations or petechiae. HEENT: Sclerae anicteric and conjunctivae pink and moist. Extraocular movements were intact and pupils were equal, round, and reactive to light. Poor oral hygiene. NECK: Supple. There was no thyroid enlargement, and no tenderness, or masses were felt. No JVD. LUNGS: Distant breath sounds bilaterally, crackles at bases posteriorly right greater than left CARDIAC: There was a regular rate and rhythm without any murmurs, gallops, rubs. ABDOMEN: Soft and nontender with normal bowel sounds. There was no organomegaly. LYMPH NODES: No lymphadenopathy was appreciated in the neck. EXTREMITIES: No cyanosis, or edema. Mild clubbing upper extremities NEUROLOGIC: Alert and oriented x 3. Normal affect. Objective Data Vital Signs Vital Signs: Vital Signs - 24 hr 06/11/23 08:28 06/11/23 09:30 06/11/23 09:38 Temperature Pulse Rate 77 71 Respiratory Rate 18 Blood Pressure Pulse Oximetry 92 Oxygen Delivery Room Air 06/11/23 09:47 06/11/23 12:00 06/11/23 14:00 Temperature 36.6 C Pulse Rate 69 72 82 Respiratory Rate 18 16 Blood Pressure 157/76 H Pulse Oximetry 92 Oxygen Delivery 06/11/23 14:20 06/11/23 14:38 06/11/23 15:25 Temperature Pulse Rate 69 76 Respiratory Rate 18 18 Blood Pressure Pulse Oximetry Oxygen Delivery Room Air 06/11/23 16:00 06/11/23 15:48 06/11/23 17:59 Temperature Pulse Rate 99 80 Respiratory Rate Blood Pressure Pulse Oximetry Oxygen Delivery Room Air 06/11/23 20:05 06/11/23 20:41 06/11/23 20:41 Temperature 37.9 C H Pulse Rate 84 78 Respiratory Rate 18 18 Blood Pressure 149/74 H Pulse Oximetry 96 98 Oxygen Delivery Room Air 06/11/23 20:47 06/11/23 20:00 06/11/23 20:00 Temperature Pulse
[2023-06-12] MEDS: METOPROLOL TARTRATE 12.5 MG TABLET PO ×2 (08:51→17:18)
[2023-06-12] MEDS: guaiFENesin 12 HR 600 MG TABCR PO ×2 (08:51→20:21)
[2023-06-12] MEDS: AZITHROMYCIN 500 MG/NS 250 ML 500 MG/250 ML BAG 250 MG IVPB (08:53)
[2023-06-12] MEDS: HYDROcodone/acetaminophen (*CRX) 5-325 MG TABLET 1 TAB PO ×2 (08:53→20:20)
[2023-06-12] MEDS: PANTOPRAZOLE SODIUM IV 40 MG VIAL IV PUSH ×2 (09:07→20:21)
--- NOTE | 2023-06-12 10:15 | P.PNIM_ITS ---
Progress Note: A&P Assessment and Plan (1) Pneumonia: Code(s): J18.9 - Pneumonia, unspecified organism Status: Acute (2) Hypoxia: Code(s): R09.02 - Hypoxemia Status: Acute (3) Hemoptysis: Code(s): R04.2 - Hemoptysis Status: Acute (4) Chronic obstructive pulmonary disease: Code(s): J44.9 - Chronic obstructive pulmonary disease, unspecified Status: Acute (5) Chronic anemia: Code(s): D64.9 - Anemia, unspecified Status: Acute (6) History of stroke: Code(s): Z86.73 - Personal history of transient ischemic attack (TIA), and cerebral infarction without residual deficits Status: Acute (7) Acute respiratory failure with hypoxia: Code(s): J96.01 - Acute respiratory failure with hypoxia Status: Acute Plan Acute respiratory failure with hypoxia secondary to pneumonia and COPD * Patient currently RA saturating 94% * Denies any hemoptysis in the past 24 hours * Pulmonary consulted appreciate recommendation and plan * CT scan severe emphysema, right lower lobe and left upper lobe pneumonia * Wbc's 11.8 * previous hx * Follow-up H&H * Bronchodilators. * incentive spirometry while awake. * sputum culture preliminary Staph aureus * influenza/COVID/RSV negative * respiratory panel pending * antibiotic therapy changed ceftriaxone to cefepime for Pseudomonas coverage, azithromycin MRSA pending * Continue oxygen therapy titration to maintain oxygen > 92% Currently on RA * CMP/CBC daily Hemoptysis * Underlying PNA * pulmonary consulted appreciate recommendation and plan * may need bronchoscopy * HGB 12.8 on admission 11.8 * F/U H&H ordered will need Q6hr H&H monitoring * Patient denies hemoptysis HX CVA * Rt sided weakness * PT/OT when stable * holding ASA due to hemoptysis/anemia Hypokalemia resolved * 3.4 * replenished with 40 meq * f/u BMP CAD * Stable Code status: Full code per patient DVT prophylaxis: SCD's Stress ulcer prophylaxis: Protonix 40 BID PT/OT notes: PT/OT on hold Disposition: Patient continues admission to the medical surgical unit for further treatment pneumonia with hemoptysis patient to have consult to pulmonology continue with antibiotic therapy monitoring H&H. Patient has history of CVA with right-sided weakness will order PT OT when stable patient reports plan to return home. Subjective Date/time seen: 06/12/23 10:15 Interval history: Subjective Date/time seen: 06/11/23? 09:49 Interval history: Narrative: This is a very pleasant 68-year-old male with history of tobacco abuse, partial pneumonectomy for lung infection 1989, bullous emphysema, chronic obstructive pulmonary disease, stroke with right-sided weakness, coronary artery disease with remote history of stents, hypertension, hyperlipidemia, and anxiety who presented to the emergency department from home for evaluation of low oxygen saturations and cough. The patient provides the following history. He has not been feeling well since Friday with multiple symptoms including generalized weakness, poor appetite, nausea, vomiting, loose stools, shortness of breath with exertion, and cough productive of dark brown and occasionally bloody sputum. He has some chest pain is well with coughing but nothing significant. He denies sinus congestion, sore throat, weight loss, recent travel, and sick contacts. In the ED: He was afebrile on arrival. Blood pressures have been runnin
--- NOTE | 2023-06-12 10:15 | PM.IMPN ---
Progress Note: A&P Assessment and Plan (1) Pneumonia: Code(s): J18.9 - Pneumonia, unspecified organism Status: Acute (2) Hypoxia: Code(s): R09.02 - Hypoxemia Status: Acute (3) Hemoptysis: Code(s): R04.2 - Hemoptysis Status: Acute (4) Chronic obstructive pulmonary disease: Code(s): J44.9 - Chronic obstructive pulmonary disease, unspecified Status: Acute (5) Chronic anemia: Code(s): D64.9 - Anemia, unspecified Status: Acute (6) History of stroke: Code(s): Z86.73 - Personal history of transient ischemic attack (TIA), and cerebral infarction without residual deficits Status: Acute (7) Acute respiratory failure with hypoxia: Code(s): J96.01 - Acute respiratory failure with hypoxia Status: Acute Plan Acute respiratory failure with hypoxia secondary to pneumonia and COPD Patient currently RA saturating 94% Denies any hemoptysis in the past 24 hours Pulmonary consulted appreciate recommendation and plan CT scan severe emphysema, right lower lobe and left upper lobe pneumonia Wbc's 11.8 previous hx Follow-up H&H Bronchodilators. incentive spirometry while awake. sputum culture preliminary Staph aureus influenza/COVID/RSV negative respiratory panel pending antibiotic therapy changed ceftriaxone to cefepime for Pseudomonas coverage, azithromycin MRSA pending Continue oxygen therapy titration to maintain oxygen > 92% Currently on RA CMP/CBC daily Hemoptysis Underlying PNA pulmonary consulted appreciate recommendation and plan may need bronchoscopy HGB 12.8 on admission 11.8 F/U H&H ordered will need Q6hr H&H monitoring Patient denies hemoptysis HX CVA Rt sided weakness PT/OT when stable holding ASA due to hemoptysis/anemia Hypokalemia resolved 3.4 replenished with 40 meq f/u BMP CAD Stable Code status: Full code per patient DVT prophylaxis: SCD's Stress ulcer prophylaxis: Protonix 40 BID PT/OT notes: PT/OT on hold Disposition: Patient continues admission to the medical surgical unit for further treatment pneumonia with hemoptysis patient to have consult to pulmonology continue with antibiotic therapy monitoring H&H. Patient has history of CVA with right-sided weakness will order PT OT when stable patient reports plan to return home. Subjective Date/time seen: 06/12/23 10:15 Interval history: Subjective Date/time seen: 06/11/23? 09:49 Interval history: Narrative: This is a very pleasant 68-year-old male with history of tobacco abuse, partial pneumonectomy for lung infection 1989, bullous emphysema, chronic obstructive pulmonary disease, stroke with right-sided weakness, coronary artery disease with remote history of stents, hypertension, hyperlipidemia, and anxiety who presented to the emergency department from home for evaluation of low oxygen saturations and cough. The patient provides the following history. He has not been feeling well since Friday with multiple symptoms including generalized weakness, poor appetite, nausea, vomiting, loose stools, shortness of breath with exertion, and cough productive of dark brown and occasionally bloody sputum. He has some chest pain is well with coughing but nothing significant. He denies sinus congestion, sore throat, weight loss, recent travel, and sick contacts. In the ED: He was afebrile on arrival. Blood pressures have been running a bit high. SpO2 was 85% on room air on arrival and he is currently on 2 L nasal cannula. He tested negative for influenza, RSV, and COVID. Chest CTA was negative for pulmonary embolus but did show severe emphysema and pneumonia involving the right lower lobe and left upper lobe. He was given a DuoNeb in addition to a dose of azithromycin and ceftriaxone he is being admitted in this setting for further treatment. 06/10: Patient with previous history of hemoptysis/PNA/Lung mass back in 2021 a
[2023-06-12 12:31] LABS: Mycoplasma IgM Antibody Titer 216 U/mL (<770)
[2023-06-12] MEDS: diphenhydrAMINE HCl CAP 25 MG CAPSULE 50 MG PO (20:21)
[2023-06-12] MEDS: SIMVASTATIN 20 MG TABLET PO (20:21)
[2023-06-12] MEDS: traZODone HCL 50 MG TABLET PO (20:21)
[2023-06-12] MEDS: GABAPENTIN 300 MG CAPSULE PO (20:21)
[2023-06-12] MEDS: lisinopriL 5 MG TABLET PO (20:21)
[2023-06-12] MEDS: ACETAMINOPHEN 500 MG TABLET 1000 MG PO (20:23)
[2023-06-13] VITALS (20 sets, daily range): BP systolic 117–168; BP diastolic 54–81; PULSE 62–86; RESP 16–20; TEMP 36.3–36.9; O2SAT 97–100
[2023-06-13] MEDS: CEFEPIME 2 GM/NS 50 ML 2 GM/50 ML BAG IVPB ×2 (00:39→07:54)
[2023-06-13] MEDS: IPRATROPIUM 0.5 MG/ALBUTEROL SULFATE 2.5 MG AMPUL.NEB 3 ML INHALATION ×4 (01:32→20:52)
[2023-06-13 04:51] LABS: Legionella pneumophila Ag Ur Not Detected (Not Detected)
[2023-06-13] MEDS: HYDROcodone/acetaminophen (*CRX) 5-325 MG TABLET 1 TAB PO ×3 (05:05→22:26)
[2023-06-13 05:16] LABS: Hematocrit 31.7 % (42.0-52.0); Hemoglobin 10.1 g/dL (14.0-18.0); Mean Corpuscular HGB Conc 31.9 g/dl (32-36); Mean Corpuscular Hemoglobin 29.4 pg (26-34); Mean Corpuscular Volume 92.4 fl (80-100); Mean Platelet Volume 11.1 fl (7.4-10.4); Platelet Count Result 290 k/mm3 (150-375); Red Blood Count 3.43 M/mm3 (4.6-6.20); Red Cell Distribution Width 12.4 % (11.5-14.5); White Blood Count 10.9 K/mm3 (4.5-10.0)
[2023-06-13 05:29] LABS: Alanine Aminotransferase 15 U/L (6-50); Albumin Level 3.8 g/dL (3.5-5.1); Alkaline Phosphatase 86 U/L (38-126); Anion Gap 6 mmol/L (8-16); Aspartate Amino Transferase 25 U/L (17-59); Blood Urea Nitrogen 18 mg/dL (9-20); Calcium 8.8 mg/dL (8.4-10.2); Carbon Dioxide 31 mmol/L (22-30); Chloride 100 mmol/L (98-107); Estimated CRCL calculation 76 ml/min; Estimated Glomerular Filt Rate > 60; Glucose 90 mg/dL (65-110); Potassium 3.4 mmol/L (3.4-5.0); Sodium 137 mmol/L (137-145)
[2023-06-13] MEDS: METOPROLOL TARTRATE 12.5 MG TABLET PO ×2 (07:54→16:19)
[2023-06-13] MEDS: AZITHROMYCIN 250 MG TABLET 500 MG PO (07:54)
[2023-06-13] MEDS: guaiFENesin 12 HR 600 MG TABCR PO ×2 (07:54→20:31)
[2023-06-13] MEDS: PANTOPRAZOLE SODIUM IV 40 MG VIAL IV PUSH ×2 (07:55→20:31)
--- NOTE | 2023-06-13 08:58 | PM.PNPUL ---
Progress Note: A&P Assessment and Plan (1) Acute respiratory failure with hypoxia: Code(s): J96.01 - Acute respiratory failure with hypoxia Status: Acute Assessment and Plan: A 68-year-old male, with a history of advanced COPD linked to bullous emphysema and currently not on any COPD treatment, presented with symptoms of shortness of breath, hypoxemia, hemoptysis, and new infiltrates observed on chest imaging studies, indicative of pneumonia. A chest CT scan revealed, in addition to advanced bullous emphysema, infiltrates in the left upper lobe and right lower lobe, most likely due to pneumonia. Compared to a previous chest CT performed during the last hospitalization in February 2022, no new mass or pulmonary embolism was detected. The patient's hemoptysis is likely associated with a lower respiratory tract infection and advanced emphysema. Bloody sputum ceased after the 2nd day in the hospital. Patient continued to to cough old blood clots. Coughing up fresh blood started last p.m.. It is unclear whether this is related to subcu Lovenox that was started yesterday a.m.. On physical exam today the patient looks unchanged. He has no shortness of breath while on same oxygen flow. Respiratory exam also unchanged.. Final sputum culture report pending. Preliminary report showed some Staph aureus. Plan: Patient was switched to levofloxacin vancomycin IV while waiting final sputum culture. Due to hemoptysis enoxaparin was discontinued. Chest x-ray ordered. (2) Chronic obstructive pulmonary disease: Code(s): J44.9 - Chronic obstructive pulmonary disease, unspecified Status: Acute (3) Bullous emphysema: Code(s): J43.9 - Emphysema, unspecified Status: Acute (4) Pneumonia: Code(s): J18.9 - Pneumonia, unspecified organism Status: Acute (5) Hemoptysis: Code(s): R04.2 - Hemoptysis Status: Acute Subjective Date/time seen: 06/13/23 08:58 Interval history: Patient started coughing up bloody sputum again. Shortness of breath unchanged. Afebrile. Remains on low-flow nasal cannula. Review of Systems Review of Systems: All systems reviewed & are unremarkable except as noted in HPI and below (HPI and below) Exam Narrative: GENERAL APPEARANCE: Well developed, well nourished, alert and cooperative, and appears to be in no acute distress while on RA SKIN: Inspection of the skin reveals no rashes, ulcerations or petechiae. HEENT: Sclerae anicteric and conjunctivae pink and moist. Extraocular movements were intact and pupils were equal, round, and reactive to light. Poor oral hygiene. NECK: Supple. There was no thyroid enlargement, and no tenderness, or masses were felt. No JVD. LUNGS: Distant breath sounds bilaterally, crackles at bases posteriorly right greater than left CARDIAC: There was a regular rate and rhythm without any murmurs, gallops, rubs. ABDOMEN: Soft and nontender with normal bowel sounds. There was no organomegaly. LYMPH NODES: No lymphadenopathy was appreciated in the neck. EXTREMITIES: No cyanosis, or edema. Mild clubbing upper extremities NEUROLOGIC: Alert and oriented x 3. Normal affect. Objective Data Vital Signs Vital Signs: Vital Signs - 24 hr 06/12/23 13:55 06/12/23 13:58 06/12/23 14:03 Temperature Pulse Rate 72 71 Respiratory Rate 16 16 Blood Pressure Pulse Oximetry 95 Oxygen Delivery Nasal Cannula Oxygen Flow Rate 1 Fraction of Inspired Oxygen 06/12/23 14:15 06/12/23 12:00 06/12/23 16:00 Temperature 36.6 C Pulse Rate 77 77 81 Respiratory Rate 16 Blood Pressure 154/55 H Pulse Oximetry 98 Oxygen Delivery Oxygen Flow Rate Fraction of Inspired Oxygen 06/12/23 17:18 06/12/23 20:41 06/12/23 20:41 Temperature Pulse Rate 95 78 78 Respiratory Rate Blood Pressure Pulse Oximetry 95 Oxygen Delivery Nasal Cannula Oxygen Flow Rate 2 Fraction of Inspired Oxygen
[2023-06-13] MEDS: levoFLOXacin 750 MG/D5W 150 ML 750 MG/150 ML BAG 100 MG IVPB (09:05)
--- NOTE | 2023-06-13 10:10 | P.PNIM_ITS ---
Progress Note: A&P Assessment and Plan (1) Pneumonia: Code(s): J18.9 - Pneumonia, unspecified organism Status: Acute (2) Hypoxia: Code(s): R09.02 - Hypoxemia Status: Acute (3) Hemoptysis: Code(s): R04.2 - Hemoptysis Status: Acute (4) Chronic obstructive pulmonary disease: Code(s): J44.9 - Chronic obstructive pulmonary disease, unspecified Status: Acute (5) Chronic anemia: Code(s): D64.9 - Anemia, unspecified Status: Acute (6) History of stroke: Code(s): Z86.73 - Personal history of transient ischemic attack (TIA), and cerebral infarction without residual deficits Status: Acute (7) Acute respiratory failure with hypoxia: Code(s): J96.01 - Acute respiratory failure with hypoxia Status: Acute Plan Acute respiratory failure with hypoxia secondary to pneumonia and COPD * Patient currently RA saturating 94% * reports hemoptysis this morning * Pulmonary consulted appreciate recommendation and plan * CT scan severe emphysema, right lower lobe and left upper lobe pneumonia * Wbc's 10.9 * Follow-up H&H * Bronchodilators. * incentive spirometry while awake. * sputum culture preliminary Staph aureus * influenza/COVID/RSV negative * respiratory panel pending * antibiotic therapy changed Levaquin/vancomycin IV * Continue oxygen therapy titration to maintain oxygen > 92% Currently on RA * CMP/CBC daily Hemoptysis * Underlying PNA * pulmonary consulted appreciate recommendation and plan * may need bronchoscopy * HGB 12.8 on admission, 10.1 * F/U H&H ordered will need Q6hr H&H monitoring * Patient switched to Levaquin/vancomycin IV while awaiting final sputum culture * DC enoxaparin due to hemoptysis * -chest x-ray pending HX CVA * Rt sided weakness * PT/OT when stable * holding ASA due to hemoptysis/anemia Hypokalemia resolved * 3.4 * replenished with 40 meq * f/u BMP CAD * Stable Code status: Full code per patient DVT prophylaxis: SCD's Stress ulcer prophylaxis: Protonix 40 BID PT/OT notes: Continue PT/OT Disposition: Patient continues to use oxygen therapy, seems to become hypoxic with activity, he has been accepted to SNF, will continue to monitor in-patient, for final results sputum culture, change to IV antibiotics, along with continue to monitoring of hgb, and bloody sputum. Subjective Date/time seen: 06/13/23 10:10 Interval history: Interval history: Narrative: This is a very pleasant 68-year-old male with history of tobacco abuse, partial pneumonectomy for lung infection 1989, bullous emphysema, chronic obstructive pulmonary disease, stroke with right-sided weakness, coronary artery disease with remote history of stents, hypertension, hyperlipidemia, and anxiety who presented to the emergency department from home for evaluation of low oxygen saturations and cough. The patient provides the following history. He has not been feeling well since Friday with multiple symptoms including generalized weakness, poor appetite, nausea, vomiting, loose stools, shortness of breath with exertion, and cough productive of dark brown and occasionally bloody sputum. He has some chest pain is well with coughing but nothing significant. He denies sinus congestion, sore throat, weight loss, recent travel, and sick contacts. In the ED: He was afebrile on arrival. Blood pressures have been running a bit high. SpO2 was 85% on room air on arrival and he is currently on 2 L nasal
--- NOTE | 2023-06-13 10:10 | PM.IMPN ---
Progress Note: A&P Assessment and Plan (1) Pneumonia: Code(s): J18.9 - Pneumonia, unspecified organism Status: Acute (2) Hypoxia: Code(s): R09.02 - Hypoxemia Status: Acute (3) Hemoptysis: Code(s): R04.2 - Hemoptysis Status: Acute (4) Chronic obstructive pulmonary disease: Code(s): J44.9 - Chronic obstructive pulmonary disease, unspecified Status: Acute (5) Chronic anemia: Code(s): D64.9 - Anemia, unspecified Status: Acute (6) History of stroke: Code(s): Z86.73 - Personal history of transient ischemic attack (TIA), and cerebral infarction without residual deficits Status: Acute (7) Acute respiratory failure with hypoxia: Code(s): J96.01 - Acute respiratory failure with hypoxia Status: Acute Plan Acute respiratory failure with hypoxia secondary to pneumonia and COPD Patient currently RA saturating 94% reports hemoptysis this morning Pulmonary consulted appreciate recommendation and plan CT scan severe emphysema, right lower lobe and left upper lobe pneumonia Wbc's 10.9 Follow-up H&H Bronchodilators. incentive spirometry while awake. sputum culture preliminary Staph aureus influenza/COVID/RSV negative respiratory panel pending antibiotic therapy changed Levaquin/vancomycin IV Continue oxygen therapy titration to maintain oxygen > 92% Currently on RA CMP/CBC daily Hemoptysis Underlying PNA pulmonary consulted appreciate recommendation and plan may need bronchoscopy HGB 12.8 on admission, 10.1 F/U H&H ordered will need Q6hr H&H monitoring Patient switched to Levaquin/vancomycin IV while awaiting final sputum culture DC enoxaparin due to hemoptysis -chest x-ray pending HX CVA Rt sided weakness PT/OT when stable holding ASA due to hemoptysis/anemia Hypokalemia resolved 3.4 replenished with 40 meq f/u BMP CAD Stable Code status: Full code per patient DVT prophylaxis: SCD's Stress ulcer prophylaxis: Protonix 40 BID PT/OT notes: Continue PT/OT Disposition: Patient continues to use oxygen therapy, seems to become hypoxic with activity, he has been accepted to SNF, will continue to monitor in-patient, for final results sputum culture, change to IV antibiotics, along with continue to monitoring of hgb, and bloody sputum. Subjective Date/time seen: 06/13/23 10:10 Interval history: Interval history: Narrative: This is a very pleasant 68-year-old male with history of tobacco abuse, partial pneumonectomy for lung infection 1989, bullous emphysema, chronic obstructive pulmonary disease, stroke with right-sided weakness, coronary artery disease with remote history of stents, hypertension, hyperlipidemia, and anxiety who presented to the emergency department from home for evaluation of low oxygen saturations and cough. The patient provides the following history. He has not been feeling well since Friday with multiple symptoms including generalized weakness, poor appetite, nausea, vomiting, loose stools, shortness of breath with exertion, and cough productive of dark brown and occasionally bloody sputum. He has some chest pain is well with coughing but nothing significant. He denies sinus congestion, sore throat, weight loss, recent travel, and sick contacts. In the ED: He was afebrile on arrival. Blood pressures have been running a bit high. SpO2 was 85% on room air on arrival and he is currently on 2 L nasal cannula. He tested negative for influenza, RSV, and COVID. Chest CTA was negative for pulmonary embolus but did show severe emphysema and pneumonia involving the right lower lobe and left upper lobe. He was given a DuoNeb in addition to a dose of azithromycin and ceftriaxone he is being admitted in this setting for further treatment. 06/10: Patient with previous history of hemoptysis/PNA/Lung mass back in 2021 and was transferred for pulmonary hemorrhage, patient presented w
[2023-06-13] MEDS: VANCOMYCIN 2,000 MG/NS 500 ML 2,000 MG/500 ML BAG 250 MG IVPB (10:28)
[2023-06-13] MEDS: SIMVASTATIN 20 MG TABLET PO (20:30)
[2023-06-13] MEDS: traZODone HCL 50 MG TABLET PO (20:30)
[2023-06-13] MEDS: lisinopriL 5 MG TABLET PO (20:30)
[2023-06-13] MEDS: ACETAMINOPHEN 500 MG TABLET 1000 MG PO (20:31)
[2023-06-13] MEDS: diphenhydrAMINE HCl CAP 25 MG CAPSULE 50 MG PO (20:31)
[2023-06-13] MEDS: GABAPENTIN 300 MG CAPSULE PO (20:31)
[2023-06-14] VITALS (17 sets, daily range): BP systolic 131–166; BP diastolic 61–68; PULSE 62–89; RESP 16; TEMP 36.7–37; O2SAT 94–99
[2023-06-14] MEDS: VANCOMYCIN 1,500 MG/NS 500 ML 1,500 MG/500 ML BAG 250 MG IVPB (04:36)
[2023-06-14 05:15] LABS: Hematocrit 33.3 % (42.0-52.0); Hemoglobin 10.6 g/dL (14.0-18.0); Mean Corpuscular HGB Conc 31.8 g/dl (32-36); Mean Corpuscular Hemoglobin 29.4 pg (26-34); Mean Corpuscular Volume 92.5 fl (80-100); Mean Platelet Volume 10.8 fl (7.4-10.4); Platelet Count Result 305 k/mm3 (150-375); Red Cell Distribution Width 12.2 % (11.5-14.5); White Blood Count 11.8 K/mm3 (4.5-10.0)
[2023-06-14 05:27] LABS: Alanine Aminotransferase 17 U/L (6-50); Albumin Level 3.9 g/dL (3.5-5.1); Alkaline Phosphatase 90 U/L (38-126); Anion Gap 4 mmol/L (8-16); Aspartate Amino Transferase 28 U/L (17-59); Blood Urea Nitrogen 14 mg/dL (9-20); Calcium 9.1 mg/dL (8.4-10.2); Carbon Dioxide 31 mmol/L (22-30); Chloride 101 mmol/L (98-107); Estimated CRCL calculation 76 ml/min; Estimated Glomerular Filt Rate > 60; Glucose 97 mg/dL (65-110); Potassium 3.7 mmol/L (3.4-5.0); Sodium 136 mmol/L (137-145)
[2023-06-14] MEDS: IPRATROPIUM 0.5 MG/ALBUTEROL SULFATE 2.5 MG AMPUL.NEB 3 ML INHALATION ×3 (07:32→20:35)
[2023-06-14] MEDS: guaiFENesin 12 HR 600 MG TABCR PO ×2 (08:56→20:45)
[2023-06-14] MEDS: METOPROLOL TARTRATE 12.5 MG TABLET PO ×2 (08:56→16:25)
[2023-06-14] MEDS: HYDROcodone/acetaminophen (*CRX) 5-325 MG TABLET 1 TAB PO ×2 (09:05→16:46)
[2023-06-14] MEDS: PANTOPRAZOLE SODIUM IV 40 MG VIAL IV PUSH ×2 (10:08→20:46)
--- NOTE | 2023-06-14 13:21 | P.PNIM_ITS ---
Progress Note: A&P Assessment and Plan (1) Pneumonia: Code(s): J18.9 - Pneumonia, unspecified organism Status: Acute (2) Hypoxia: Code(s): R09.02 - Hypoxemia Status: Acute (3) Hemoptysis: Code(s): R04.2 - Hemoptysis Status: Acute (4) Chronic obstructive pulmonary disease: Code(s): J44.9 - Chronic obstructive pulmonary disease, unspecified Status: Acute (5) Chronic anemia: Code(s): D64.9 - Anemia, unspecified Status: Acute (6) History of stroke: Code(s): Z86.73 - Personal history of transient ischemic attack (TIA), and cerebral infarction without residual deficits Status: Acute (7) Acute respiratory failure with hypoxia: Code(s): J96.01 - Acute respiratory failure with hypoxia Status: Acute Plan Acute respiratory failure with hypoxia secondary to pneumonia and COPD * Patient currently 2L NC saturating 94% * reports hemoptysis this morning * Pulmonary consulted appreciate recommendation and plan * CT scan severe emphysema, right lower lobe and left upper lobe pneumonia * Wbc's 11.8 * Follow-up H&H * Bronchodilators. * incentive spirometry while awake. * sputum culture preliminary Staph aureus * influenza/COVID/RSV negative * respiratory panel pending * Continue levaquin/vancomycin IV * Continue oxygen therapy titration to maintain oxygen > 92% Currently on RA * CMP/CBC daily Hemoptysis * Underlying PNA * pulmonary consulted appreciate recommendation and plan * may need bronchoscopy * HGB 12.8 on admission, now 10.6 * F/U H&H ordered will need Q6hr H&H monitoring * Patient switched to Levaquin/vancomycin IV while awaiting final sputum culture * DC enoxaparin due to hemoptysis HX CVA * Rt sided weakness * PT/OT when stable * holding ASA due to hemoptysis/anemia Hypokalemia resolved * 3.4 * replenished with 40 meq * f/u BMP CAD * Stable Code status: Full code per patient DVT prophylaxis: SCD's Stress ulcer prophylaxis: Protonix 40 BID PT/OT notes: Continue PT/OT Disposition: Patient continues to use oxygen therapy, seems to become hypoxic with activity, he has been accepted to SNF, will continue to monitor in- patient,waiting for final sputum cultures. Pulmonology is still following patient Subjective Date/time seen: 06/14/23 13:21 Interval history: Interval history: Narrative: This is a very pleasant 68-year-old male with history of tobacco abuse, partial pneumonectomy for lung infection 1989, bullous emphysema, chronic obstructive pulmonary disease, stroke with right-sided weakness, coronary artery disease with remote history of stents, hypertension, hyperlipidemia, and anxiety who presented to the emergency department from home for evaluation of low oxygen saturations and cough. The patient provides the following history. He has not been feeling well since Friday with multiple symptoms including generalized weakness, poor appetite, nausea, vomiting, loose stools, shortness of breath with exertion, and cough productive of dark brown and occasionally bloody sputum. He has some chest pain is well with coughing but nothing significant. He denies sinus congestion, sore throat, weight loss, recent travel, and sick contacts. In the ED: He was afebrile on arrival. Blood pressures have been running a bit high. SpO2 was 85% on room air on arrival and he is currently on 2 L nasal cannula. He tested negative for influenza, RSV, and COVID. Chest CTA was negative for pulmonary embolus but
--- NOTE | 2023-06-14 13:21 | PM.IMPN ---
Progress Note: A&P Assessment and Plan (1) Pneumonia: Code(s): J18.9 - Pneumonia, unspecified organism Status: Acute (2) Hypoxia: Code(s): R09.02 - Hypoxemia Status: Acute (3) Hemoptysis: Code(s): R04.2 - Hemoptysis Status: Acute (4) Chronic obstructive pulmonary disease: Code(s): J44.9 - Chronic obstructive pulmonary disease, unspecified Status: Acute (5) Chronic anemia: Code(s): D64.9 - Anemia, unspecified Status: Acute (6) History of stroke: Code(s): Z86.73 - Personal history of transient ischemic attack (TIA), and cerebral infarction without residual deficits Status: Acute (7) Acute respiratory failure with hypoxia: Code(s): J96.01 - Acute respiratory failure with hypoxia Status: Acute Plan Acute respiratory failure with hypoxia secondary to pneumonia and COPD Patient currently 2L NC saturating 94% reports hemoptysis this morning Pulmonary consulted appreciate recommendation and plan CT scan severe emphysema, right lower lobe and left upper lobe pneumonia Wbc's 11.8 Follow-up H&H Bronchodilators. incentive spirometry while awake. sputum culture preliminary Staph aureus influenza/COVID/RSV negative respiratory panel pending Continue levaquin/vancomycin IV Continue oxygen therapy titration to maintain oxygen > 92% Currently on RA CMP/CBC daily Hemoptysis Underlying PNA pulmonary consulted appreciate recommendation and plan may need bronchoscopy HGB 12.8 on admission, now 10.6 F/U H&H ordered will need Q6hr H&H monitoring Patient switched to Levaquin/vancomycin IV while awaiting final sputum culture DC enoxaparin due to hemoptysis HX CVA Rt sided weakness PT/OT when stable holding ASA due to hemoptysis/anemia Hypokalemia resolved 3.4 replenished with 40 meq f/u BMP CAD Stable Code status: Full code per patient DVT prophylaxis: SCD's Stress ulcer prophylaxis: Protonix 40 BID PT/OT notes: Continue PT/OT Disposition: Patient continues to use oxygen therapy, seems to become hypoxic with activity, he has been accepted to SNF, will continue to monitor in-patient,waiting for final sputum cultures. Pulmonology is still following patient Subjective Date/time seen: 06/14/23 13:21 Interval history: Interval history: Narrative: This is a very pleasant 68-year-old male with history of tobacco abuse, partial pneumonectomy for lung infection 1989, bullous emphysema, chronic obstructive pulmonary disease, stroke with right-sided weakness, coronary artery disease with remote history of stents, hypertension, hyperlipidemia, and anxiety who presented to the emergency department from home for evaluation of low oxygen saturations and cough. The patient provides the following history. He has not been feeling well since Friday with multiple symptoms including generalized weakness, poor appetite, nausea, vomiting, loose stools, shortness of breath with exertion, and cough productive of dark brown and occasionally bloody sputum. He has some chest pain is well with coughing but nothing significant. He denies sinus congestion, sore throat, weight loss, recent travel, and sick contacts. In the ED: He was afebrile on arrival. Blood pressures have been running a bit high. SpO2 was 85% on room air on arrival and he is currently on 2 L nasal cannula. He tested negative for influenza, RSV, and COVID. Chest CTA was negative for pulmonary embolus but did show severe emphysema and pneumonia involving the right lower lobe and left upper lobe. He was given a DuoNeb in addition to a dose of azithromycin and ceftriaxone he is being admitted in this setting for further treatment. 06/10: Patient with previous history of hemoptysis/PNA/Lung mass back in 2021 and was transferred for pulmonary hemorrhage, patient presented with same symptoms CTA showed PNA and severe emphysema.? Patient continues to have hemoptysis
[2023-06-14 15:01] LABS: Pneumococcal Antigen Urine Not Detected (Not Detected)
--- NOTE | 2023-06-14 19:37 | PC.NURSE ---
Addendum entered by Mansi Daigle RN 06/14/23 20:04: Sepideh Chand Original Note: On 06/14/23, the PICK AND [employer]OVEL MAN, [ ], provided care and completed [employer] documentation on this patient. I have reviewed the [employer]'s documentation and agree with the findings.
[2023-06-14] MEDS: SIMVASTATIN 20 MG TABLET PO (20:44)
[2023-06-14] MEDS: GABAPENTIN 300 MG CAPSULE PO (20:45)
[2023-06-14] MEDS: ACETAMINOPHEN 500 MG TABLET 1000 MG PO (20:45)
[2023-06-14] MEDS: traZODone HCL 50 MG TABLET PO (20:45)
[2023-06-14] MEDS: diphenhydrAMINE HCl CAP 25 MG CAPSULE 50 MG PO (20:45)
[2023-06-14] MEDS: lisinopriL 5 MG TABLET PO (20:45)
[2023-06-14 22:58] LABS: Vancomycin Trough 7.3 ug/mL (10.0-20.0)
[2023-06-14] MEDS: VANCOMYCIN 2,000 MG/NS 500 ML 2,000 MG/500 ML BAG 250 MG IVPB (23:55)
[2023-06-15] VITALS (24 sets, daily range): BP systolic 113–140; BP diastolic 40–74; PULSE 63–90; RESP 16–20; TEMP 36.6–36.9; O2SAT 96–99
[2023-06-15] MEDS: IPRATROPIUM 0.5 MG/ALBUTEROL SULFATE 2.5 MG AMPUL.NEB 3 ML INHALATION ×4 (02:50→19:19)
[2023-06-15 05:08] LABS: Hematocrit 32.7 % (42.0-52.0); Hemoglobin 10.3 g/dL (14.0-18.0); Mean Corpuscular HGB Conc 31.5 g/dl (32-36); Mean Corpuscular Hemoglobin 29.4 pg (26-34); Mean Corpuscular Volume 93.4 fl (80-100); Mean Platelet Volume 11.2 fl (7.4-10.4); Platelet Count Result 321 k/mm3 (150-375); Red Cell Distribution Width 12.5 % (11.5-14.5); White Blood Count 12.6 K/mm3 (4.5-10.0)
[2023-06-15 05:21] LABS: Alanine Aminotransferase 17 U/L (6-50); Albumin Level 3.8 g/dL (3.5-5.1); Alkaline Phosphatase 87 U/L (38-126); Anion Gap 6 mmol/L (8-16); Aspartate Amino Transferase 30 U/L (17-59); Bilirubin,Total 0.9 mg/dL (0.2-1.3); Blood Urea Nitrogen 17 mg/dL (9-20); Carbon Dioxide 29 mmol/L (22-30); Chloride 101 mmol/L (98-107); Estimated CRCL calculation 84 ml/min; Estimated Glomerular Filt Rate > 60; Glucose 94 mg/dL (65-110); Potassium 3.6 mmol/L (3.4-5.0); Sodium 136 mmol/L (137-145)
[2023-06-15] MEDS: guaiFENesin 12 HR 600 MG TABCR PO ×2 (08:20→20:39)
[2023-06-15] MEDS: HYDROcodone/acetaminophen (*CRX) 5-325 MG TABLET 1 TAB PO ×2 (08:20→16:43)
[2023-06-15] MEDS: METOPROLOL TARTRATE 12.5 MG TABLET PO ×2 (08:21→16:43)
--- NOTE | 2023-06-15 09:00 | PM.IMPN ---
Progress Note: A&P Assessment and Plan (1) Pneumonia: Code(s): J18.9 - Pneumonia, unspecified organism Status: Acute (2) Hypoxia: Code(s): R09.02 - Hypoxemia Status: Acute (3) Hemoptysis: Code(s): R04.2 - Hemoptysis Status: Acute (4) Chronic obstructive pulmonary disease: Code(s): J44.9 - Chronic obstructive pulmonary disease, unspecified Status: Acute (5) Chronic anemia: Code(s): D64.9 - Anemia, unspecified Status: Acute (6) History of stroke: Code(s): Z86.73 - Personal history of transient ischemic attack (TIA), and cerebral infarction without residual deficits Status: Acute (7) Acute respiratory failure with hypoxia: Code(s): J96.01 - Acute respiratory failure with hypoxia Status: Acute Plan Acute respiratory failure with hypoxia secondary to pneumonia and COPD Patient currently 2L NC saturating 96% Pulmonary consulted appreciate recommendation and plan CT scan severe emphysema, right lower lobe and left upper lobe pneumonia Wbc's 12.6 Follow-up H&H Bronchodilators. incentive spirometry while awake. sputum culture preliminary Staph aureus waiting on final culture influenza/COVID/RSV negative respiratory panel pending Continue vancomycin IV Continue oxygen therapy titration to maintain oxygen > 92% Currently on RA CMP/CBC daily Hemoptysis Underlying PNA pulmonary consulted appreciate recommendation and plan may need bronchoscopy HGB 12.8 on admission, now 10.6 F/U H&H ordered will need Q6hr H&H monitoring Patient switched to Levaquin/vancomycin IV while awaiting final sputum culture DC enoxaparin due to hemoptysis HX CVA Rt sided weakness PT/OT when stable holding ASA due to hemoptysis/anemia Hypokalemia resolved CAD Stable Code status: Full code per patient DVT prophylaxis: SCD's Stress ulcer prophylaxis: Protonix 40 BID PT/OT notes: Continue PT/OT Disposition: Patient continues to use oxygen therapy, seems to become hypoxic with activity, he has been accepted to SNF, will continue to monitor in-patient,waiting for final sputum cultures. Pulmonology is still following patient Subjective Date/time seen: 06/15/23 09:00 Interval history: Interval history: Narrative: This is a very pleasant 68-year-old male with history of tobacco abuse, partial pneumonectomy for lung infection 1989, bullous emphysema, chronic obstructive pulmonary disease, stroke with right-sided weakness, coronary artery disease with remote history of stents, hypertension, hyperlipidemia, and anxiety who presented to the emergency department from home for evaluation of low oxygen saturations and cough. The patient provides the following history. He has not been feeling well since Friday with multiple symptoms including generalized weakness, poor appetite, nausea, vomiting, loose stools, shortness of breath with exertion, and cough productive of dark brown and occasionally bloody sputum. He has some chest pain is well with coughing but nothing significant. He denies sinus congestion, sore throat, weight loss, recent travel, and sick contacts. In the ED: He was afebrile on arrival. Blood pressures have been running a bit high. SpO2 was 85% on room air on arrival and he is currently on 2 L nasal cannula. He tested negative for influenza, RSV, and COVID. Chest CTA was negative for pulmonary embolus but did show severe emphysema and pneumonia involving the right lower lobe and left upper lobe. He was given a DuoNeb in addition to a dose of azithromycin and ceftriaxone he is being admitted in this setting for further treatment. 06/10: Patient with previous history of hemoptysis/PNA/Lung mass back in 2021 and was transferred for pulmonary hemorrhage, patient presented with same symptoms CTA showed PNA and severe emphysema.? Patient continues to have hemoptysis and hgb has dropped from 12.3 to 8.8 in less than 24 basilia
[2023-06-15] MEDS: VANCOMYCIN 2,000 MG/NS 500 ML 2,000 MG/500 ML BAG 250 MG IVPB ×2 (11:25→23:15)
[2023-06-15] MEDS: PANTOPRAZOLE SODIUM IV 40 MG VIAL IV PUSH ×2 (11:35→20:39)
--- NOTE | 2023-06-15 18:16 | PC.NURSE ---
On 06/15/23, the [employer] SAL[employer] ASSOCIATE, Sepideh Chand, provided care and completed [employer] documentation on this patient. I have reviewed the [employer]OCI[employer]'s documentation and agree with the findings.
[2023-06-15] MEDS: ACETAMINOPHEN 500 MG TABLET 1000 MG PO (20:38)
[2023-06-15] MEDS: diphenhydrAMINE HCl CAP 25 MG CAPSULE 50 MG PO (20:39)
[2023-06-15] MEDS: lisinopriL 5 MG TABLET PO (20:39)
[2023-06-15] MEDS: GABAPENTIN 300 MG CAPSULE PO (20:39)
[2023-06-15] MEDS: SIMVASTATIN 20 MG TABLET PO (20:39)
[2023-06-15] MEDS: traZODone HCL 50 MG TABLET PO (20:39)
[2023-06-16] VITALS (14 sets, daily range): BP systolic 131–154; BP diastolic 48–76; PULSE 65–92; RESP 15–18; TEMP 36.5–36.7; O2SAT 96–100
[2023-06-16 05:39] LABS: Hematocrit 31.6 % (42.0-52.0); Hemoglobin 9.8 g/dL (14.0-18.0); Mean Corpuscular Hemoglobin 28.9 pg (26-34); Mean Corpuscular Volume 93.2 fl (80-100); Mean Platelet Volume 11.1 fl (7.4-10.4); Platelet Count Result 327 k/mm3 (150-375); Red Blood Count 3.39 M/mm3 (4.6-6.20); Red Cell Distribution Width 12.4 % (11.5-14.5); White Blood Count 10.4 K/mm3 (4.5-10.0)
[2023-06-16 06:00] LABS: Alanine Aminotransferase 22 U/L (6-50); Albumin Level 3.5 g/dL (3.5-5.1); Alkaline Phosphatase 86 U/L (38-126); Anion Gap 6 mmol/L (8-16); Aspartate Amino Transferase 33 U/L (17-59); Bilirubin,Total 0.8 mg/dL (0.2-1.3); Blood Urea Nitrogen 16 mg/dL (9-20); Calcium 8.8 mg/dL (8.4-10.2); Carbon Dioxide 31 mmol/L (22-30); Chloride 101 mmol/L (98-107); Estimated CRCL calculation 94 ml/min; Estimated Glomerular Filt Rate > 60; Glucose 93 mg/dL (65-110); Potassium 3.5 mmol/L (3.4-5.0); Sodium 138 mmol/L (137-145)
[2023-06-16] MEDS: IPRATROPIUM 0.5 MG/ALBUTEROL SULFATE 2.5 MG AMPUL.NEB 3 ML INHALATION ×2 (07:49→14:45)
[2023-06-16] MEDS: guaiFENesin 12 HR 600 MG TABCR PO (08:48)
[2023-06-16] MEDS: HYDROcodone/acetaminophen (*CRX) 5-325 MG TABLET 1 TAB PO ×2 (08:48→14:48)
[2023-06-16] MEDS: METOPROLOL TARTRATE 12.5 MG TABLET PO (08:49)
[2023-06-16] MEDS: PANTOPRAZOLE SODIUM IV 40 MG VIAL IV PUSH (08:49)
[2023-06-16 10:44] LABS: Vancomycin Trough 18.4 ug/mL (10.0-20.0)
[2023-06-16] MEDS: VANCOMYCIN 2,000 MG/NS 500 ML 2,000 MG/500 ML BAG 250 MG IVPB (11:23)
--- NOTE | 2023-06-16 12:52 | PM.IMPN ---
Progress Note: A&P Assessment and Plan (1) Acute respiratory failure with hypoxia: Code(s): J96.01 - Acute respiratory failure with hypoxia Status: Acute Assessment and Plan: Patient finished course of antibiotics, vancomycin DC today CT scan today shown pneumonia involving the right lower lobe and left upper lobe with interval improvement on the right, small right pleural effusion, severe emphysema, right upper lobectomy White blood cell count down to 10.4 today 1st sputum culture showing Staphylococcus aureus, 2nd sputum culture showing rare Gram-positive cocci, few epithelial cells and few wbc's on preliminary read Blood cultures are showing no growth to date on final read Currently on room air Continue DuoNebs Continue guaifenesin Pulmonology following Patient continues with hemoptysis (2) Pneumonia: Code(s): J18.9 - Pneumonia, unspecified organism Status: Acute Assessment and Plan: See above (3) Hypoxia: Code(s): R09.02 - Hypoxemia Status: Acute Assessment and Plan: See above (4) Hemoptysis: Code(s): R04.2 - Hemoptysis Status: Acute Assessment and Plan: See above Hemoglobin 9.8 today (5) Chronic obstructive pulmonary disease: Code(s): J44.9 - Chronic obstructive pulmonary disease, unspecified Status: Acute Assessment and Plan: See above (6) Chronic anemia: Code(s): D64.9 - Anemia, unspecified Status: Acute Assessment and Plan: Hemoglobin 9.8, hematocrit 31.6 Continue to trend (7) History of stroke: Code(s): Z86.73 - Personal history of transient ischemic attack (TIA), and cerebral infarction without residual deficits Status: Acute Assessment and Plan: Of note Time Spent With Patient Time with patient: Greater than 35 minutes Subjective Date/time seen: 06/16/23 12:52 Interval history: Interval history: Narrative: This is a very pleasant 68-year-old male with history of tobacco abuse, partial pneumonectomy for lung infection 1989, bullous emphysema, chronic obstructive pulmonary disease, stroke with right-sided weakness, coronary artery disease with remote history of stents, hypertension, hyperlipidemia, and anxiety who presented to the emergency department from home for evaluation of low oxygen saturations and cough. The patient provides the following history. He has not been feeling well since Friday with multiple symptoms including generalized weakness, poor appetite, nausea, vomiting, loose stools, shortness of breath with exertion, and cough productive of dark brown and occasionally bloody sputum. He has some chest pain is well with coughing but nothing significant. He denies sinus congestion, sore throat, weight loss, recent travel, and sick contacts. In the ED: He was afebrile on arrival. Blood pressures have been running a bit high. SpO2 was 85% on room air on arrival and he is currently on 2 L nasal cannula. He tested negative for influenza, RSV, and COVID. Chest CTA was negative for pulmonary embolus but did show severe emphysema and pneumonia involving the right lower lobe and left upper lobe. He was given a DuoNeb in addition to a dose of azithromycin and ceftriaxone he is being admitted in this setting for further treatment. 06/10: Patient with previous history of hemoptysis/PNA/Lung mass back in 2021 and was transferred for pulmonary hemorrhage, patient presented with same symptoms CTA showed PNA and severe emphysema.? Patient continues to have hemoptysis and hgb has dropped from 12.3 to 8.8 in less than 24 hours.? Pulmonary has been consulted for further evaluation may need bronchoscopy and some concern patient will need transfer to a tertiary facility for arteriography and embolization .? Follow-up H&H at 1000.? On assessment patient is fatigued and complaints of generalized weakness.? Patient denied chest pain at this time but reported continued hemoptysis overnight. L
--- NOTE | 2023-06-16 14:21 | PM.PNPUL ---
Progress Note: A&P Assessment and Plan (1) Hemoptysis: Code(s): R04.2 - Hemoptysis Status: Acute Assessment and Plan: Patient admitted on 06/09/2023 with hemoptysis and has been treated with multiple antibiotics including ceftriaxone x1 dose, azithromycin x5 days, Levaquin x1 dose on 06/12, cefepime [id number] and vancomycin since 06/13/2023. Patient has 0 SSA in his sputum and his MRSA swab is negative. CT scan of the chest today demonstrates improved right lower lobe infiltrate and mildly worsening to no change left upper lobe consolidation. He continues with hemoptysis. 06/15: patient states that still is having significant hemoptysis. He showed me his emesis bag that has 6 dark red sputum blood clots. His white blood cell count is 10.4, his creatinine is 0.7. He is afebrile. Currently is on room air with saturations 100%. Plan: I have discussed with ID pharmacist and at this time will change to high-dose Zosyn to continue coverage for 0 SSA, add better pseudomonal coverage and add anaerobic coverage. The patient has failed to respond to 7 days of antibiotics and at this time recommend transfer to higher level of care facility for his continued hemoptysis with evaluation by Interventional Radiology for possible embolization, interventional pulmonary and or thoracic surgery. I discussed this plan with Maribeth De uLna who will initiate this transfer. Currently the patient is having no wheezes and is on room air. Continue DuoNebs q.6 hours. Continue guaifenesin 600 mg p.o. b.i.d.. Will follow with you. Subjective Date/time seen: 06/16/23 14:21 Interval history: 06/10/23 New pulmonary consult for Pneumonia/Hypoxia Narrative: A 68-year-old male patient with a medical history including tobacco use, partial pneumonectomy due to a lung infection years ago, bullous emphysema, chronic obstructive pulmonary disease, stroke leading to right-sided weakness, coronary artery disease with a distant history of stents, hypertension, hyperlipidemia, and anxiety, reported to the emergency department. He was experiencing malaise, shortness of breath, chest congestion, and a cough that had lasted for several days. The patient mentioned having three instances of bloody sputum the previous day, with the last occurrence of hemoptysis taking place in the early afternoon. Upon evaluation in the emergency room, he was diagnosed with hypoxemia. Chest imaging revealed advanced bullous emphysema and new infiltrates in the right lower lobe and left upper lobe. PCR tests for common viruses returned negative results. The patient denied experiencing chest pain, fever, chills, or lower extremity edema. He has a history of chronic orthopnea but no history of lower extremity edema. He has not been taking any medication for his COPD. Similar symptoms led to his hospitalization in February 2022. Due to persistent hemoptysis over several days, he was transferred to a tertiary hospital. Unfortunately, the patient could not recall the specific hospital or the exact treatment he received. He stated that during that hospitalization, fluid was drained from his chest and he was treated for pneumonia. Since being admitted to the hospital, his respiratory status has remained stable. He continues to rely on supplemental oxygen at 2 liters per minute and confirmed that he has not had any further instances of hemoptysis since 2:00 p.m. the previous day. He continues to experience chest congestion but has no fever or chills. He is currently on antibiotics to treat a lower respiratory tract infection.? A drop in his hemoglobin noted over the last 24 hours. 06/11 Patient has no new respiratory complaints.? He continues to have blood tinged sputum.? Since yesterday his sputum now looks dark consistent with all blood clots.? He has had no fresh blood in sputum over the last 24 hours.? He remains on supplemental oxygen. : Patient feels better today.? Has had no dark sputum
[2023-06-16] MEDS: PIPERACILLIN/TAZ 4.5G/NS 100ML 4.5 GM/100 ML BAG IVPB (14:44)
--- NOTE | 2023-06-16 16:38 | PM.TDS ---
Transfer Discharge Sum: Prov Provider Date of admission: 06/09/23 17:37 Primary care physician: Henri Villareal MD Admitting clinician: Martin Dorsey MD Consults: 06/10/23 Consult to Physician Routine Comment: Spoke with Doctor today at 0810 ([facility] [place] Consulting Provider: Neftaly Anaya call center representative/MD group to consult: Pulmonary Reason for consultation: hemoptysis/PNA Has provider been notified: Yes Attending physician on discharge: Maribeth De Luna Discharging clinician: Maribeth De Luna Anticipated date of transfer: 06/16/23 Receiving physician/facility: Dr Warren at [facility] DS: Admitting Diagnosis Discharge Date 06/16/23 Admitting Diagnosis Acute respiratory failure with hypoxia Pneumonia Hemoptysis COPD Chronic anemia History of stroke Transfer Discharge Sum: Med Medications Active and Home Medications: Home Medications Tylenol PM 2 tab-cap PO HS 06/09/23 [History Confirmed 06/09/23] aspirin 81 mg capsule 81 mg PO HS 06/09/23 [History Confirmed 06/09/23] clonazepam 0.5 mg tablet 0.5 mg PO DAILY PRN Anxiety 06/09/23 [History Confirmed 06/09/23] gabapentin 300 mg capsule 300 mg PO HS 06/09/23 [History Confirmed 06/09/23] lisinopril 5 mg tablet 5 mg PO HS 06/09/23 [History Confirmed 06/09/23] loperamide 2 mg capsule 2 mg PO TID PRN diarrha 06/09/23 [History Confirmed 06/09/23] metoprolol tartrate 25 mg tablet 12.5 mg PO BID 06/09/23 [History Confirmed 06/09/23] simvastatin 20 mg tablet 20 mg PO HS 06/09/23 [History Confirmed 06/09/23] trazodone 50 mg tablet 50 mg PO HS 06/09/23 [History Confirmed 06/09/23] Active Medications Acetaminophen (Acetaminophen 325 Mg Tablet) 650 mg PO Q6H PRN PRN Reason: Mild Pain (1-3) or Fever Last Admin: 06/12/23 05:59 Dose: 650 mg Acetaminophen (Acetaminophen 500 Mg Tablet) 1,000 mg PO HS [facility] Last Admin: 06/15/23 20:38 Dose: 1,000 mg Hydrocodone Bitart/Acetaminophen (Hydrocodone/Acetaminophen (*Crx) 5-325 Mg Tablet) 1 tab PO Q6H PRN PRN Reason: Pain Rated 4-6 Last Admin: 06/16/23 14:48 Dose: 1 tab Albuterol/Ipratropium (Ipratropium 0.5 Mg/Albuterol Sulfate 2.5 Mg Ampul.Neb 3 Ml) 3 ml INHALATION Q6HRT [facility] Last Admin: 06/16/23 14:45 Dose: 3 ml Clonazepam (Clonazepam (*Crx) 0.5 Mg Tablet) 0.5 mg PO DAILY PRN PRN Reason: Anxiety Diphenhydramine HCl (Diphenhydramine Hcl Cap 25 Mg Capsule) 50 mg PO [facility] Last Admin: 06/15/23 20:39 Dose: 50 mg Gabapentin (Gabapentin 300 Mg Capsule) 300 mg PO [facility] Last Admin: 06/15/23 20:39 Dose: 300 mg Guaifenesin (Guaifenesin 12 Hr 600 Mg Tabcr) 600 mg PO Q12HR [facility] Last Admin: 06/16/23 08:48 Dose: 600 mg Piperacillin Sod/Tazobactam Sod (Zosyn 4.5 Gm/Ns 100 Ml) 4.5 gm in 100 mls @ 200 mls/hr IVPB Q6HR [facility] Last Admin: 06/16/23 14:44 Dose: 200 mls/hr Lisinopril (Lisinopril 5 Mg Tablet) 5 mg PO [facility] Last Admin: 06/15/23 20:39 Dose: 5 mg Loperamide HCl (Loperamide Hcl 2 Mg Capsule) 2 mg PO TID PRN PRN Reason: diarrha Last Admin: 06/11/23 14:18 Dose: 2 mg Metoprolol Tartrate (Metoprolol Tartrate 12.5 Mg Tablet) 12.5 mg PO BID [facility] Last Admin: 06/16/23 08:49 Dose: 12.5 mg Pantoprazole Sodium (Pantoprazole Sodium Iv 40 Mg Vial) 40 mg IV PUSH Q12HR [facility] Last Admin: 06/16/23 08:49 Dose: 40 mg Simvastatin (Simvastatin 20 Mg Tablet) 20 mg PO [facility] Last Admin: 06/15/23 20:39 Dose: 20 mg Trazodone HCl (Trazodone Hcl 50 Mg Tablet) 50 mg PO [facility] Last Admin: 06/15/23 20:39 Dose: 50 mg Transfer Discharge Sum: Hosp Hospital Course Hospital course: Trevor Hyde is a 68 year old male with a significant past medical history of tobacco use, partial pneumonectomy due to a lung infection years ago, bolus emphysema, COPD, stroke leading to right-sided weakness, coronary artery disease with stents, hypertension, hyperlipidemia who presented to the hospital on 06/09/2023 with complaints of hemoptysis, hypoxia. While in the ED patient had a chest CTA which was negati
== END 2023-06-16 16:45 | disposition short-term general hospital (02) | DRG 178 ==
LOC: ANHED 14:27 → ANH3MEDSUR 17:50 → ANH2MED 20:17
PROVIDERS: Internal Medicine Pulmonary Disease; Nurse Practitioner Family; Physician Assistant; Admitting Provider Family Medicine; Emergency Provider Emergency Medicine; PCP Emergency Medicine; Visit Provider Nurse Practitioner Acute Care
DX: J15.211 Pneumonia due to Methicillin susceptible Staphylococcus aureus (principal); I69.351 Hemiplegia and hemiparesis following cerebral infarction affecting right dominant side; J44.0 Chronic obstructive pulmonary disease with (acute) lower respiratory infection; R04.2 Hemoptysis; J43.9 Emphysema, unspecified; I25.10 Atherosclerotic heart disease of native coronary artery without angina pectoris; I10 Essential (primary) hypertension; D64.9 Anemia, unspecified; E87.6 Hypokalemia; E78.5 Hyperlipidemia, unspecified; F41.9 Anxiety disorder, unspecified; F12.90 Cannabis use, unspecified, uncomplicated; Z20.822 Contact with and (suspected) exposure to COVID-19; I25.2 Old myocardial infarction; Z87.891 Personal history of nicotine dependence
CPT/HCPCS: 36415; 36600; 71045; 71250; 71275; 80048; 80053; 80202; 83735; 83880; 84484; 85014; 85018; 85025; 85027; 85610; 85730; 86738; 86850; 86900; 86901; 87040; 87070; 87077; 87181; 87205; 87449; 87637; 87641; 87899; 93005; 93970; 94640; 96365; 96367; 97110; 97161; 97166; 97530; 97535; 99285; A9270; C9113; G0378; J0456; J0692; J0696; J1956; J2543; J3370; J3480; J7040; Q9967

== ENCOUNTER 2024-02-13 12:34 | Outpatient (CLI) | payer MEDICARE, SELFPAY ==
--- NOTE | 2024-02-17 18:19 | WPDPFTINT ---
PFT Procedure Performed PFT Procedure Performed Spirometry with Pre/Post Bronchodilator Plethysmography (Lung Vol) Diffusing Cap (DLCO) Flow Vol Loop PFT Interpretation DOS: Feb 13, 2024 REQUESTING: Neftaly Anaya MD REASON FOR TESTING: COPD PULMONARY FUNCTION TESTS Spirometry: The pre-bronchodilator FEV1 is []. The pre-bronchodilator FVC is []. The FEV1/FVC ratio is []. After bronchodilator, the FEV1 is []. The FVC is []. The FEV1/FVC ratio is []. Lung volumes: The total lung capacity is []. The residual volume is []. The RV/TLC is []. Diffusion: DLCO is []. The DLCO/VA is []. Flow volume loop: The flow volume loop is []. IMPRESSION: Maria Luisa Pierce MD
== END 2024-02-13 12:35 | disposition home or self-care (01) ==
PROVIDERS: PCP Emergency Medicine; Visit Provider Internal Medicine Pulmonary Disease
DX: J44.9 Chronic obstructive pulmonary disease, unspecified (principal); Z87.891 Personal history of nicotine dependence
CPT/HCPCS: 94060; 94726; 94729

== ENCOUNTER 2024-08-17 09:03 | Outpatient (CLI) | payer MEDICARE, SELFPAY ==
--- NOTE | ~2024-08-17 | CT_ITS ---
CT Scan of the Chest without Contrast: Clinical Indication: Lung cancer screening, nicotine dependence Technique: Contiguous sections were acquired throughout the chest without intravenous contrast. Dose reduction technique was used on this scan by utilizing automated exposure control and iterative recon struction technique. The dose-length product (DLP) was 81.94 mGy-cm. COMPARISON: 06/16/2023 Findings: There is no evidence of any significant mediastinal, hilar or axillary lymphadenopathy. Extensive cor onary artery calcifications are present. There is no evidence of pleural or pericardial effusion. There is advanced emphysema. Status post right upper lobectomy. Stable chronic consolidation and/or p leural thickening at the superior segment right lower lobe. Previously noted somewhat masslike patchy consolidation left upper lobe is essentially completely resolved with minimal residual presumed post inflammatory scarring. Images through the upper abdomen reveal no abnormalities. Impression: Lung RADS 2: Benign appearance. 12 month follow-up screening CT advised. Probable chronic consolidation or posttreatment change in the superior segment right lower lobe. Reviewed, dictated and finalized at [facility]. Impression: Lung RADS 2: Benign appearance. 12 month follow-up screening CT advised. Probable chronic consolidation or posttreatment change in the superior segment right lower lobe.
--- OUTSIDE RECORDS SUMMARY | 2024-08-17 09:32 | XMS_ITS | Encounter Summary ---
Author Organization [facility] Address [facility] [place] [address] Care Team Providers Care Progressive Care Manager Name Role Phone Charly Fernandez DO Primary Care Provider [phone] Conrad Stark DO Primary Care Provider + Charly Fernandez DO Primary Care Provider [phone] None, Provider Primary Care Provider Charly Boggs DO Primary Care Provider Encounter Details Date Type Department Care Team (Latest Contact Info) Description 02/17/2018 Abstract [facility] , Srinivas Liao MD Social History Tobacco Use Types Packs/Day Years Used Date Smoking Tobacco: Former Cigarettes 1 50 Smokeless Tobacco: Never Alcohol Use Standard Drinks/Week Comments Yes 0 (1 standard drink = 0.6 oz pur e alcohol) OCCASIONALLY Sex and Gender Information Value Date Recorded Sex Assigned at Not on file Legal Sex Male 5:33 PM CDT Gender Identity Not on file Sexual Orientation Not on file documented as of this encounter Plan of Treatment Not on file documented as of this encounter Visit Diagnoses Not on filedocumented in this encounter Care Teams Progressive Care Manager Relationship Specialty Start Date End Date Charly Fernandez DO PCP - General 04/09/16 05/27/18 Conrad Stark DO [address] [place] [id number] PCP - General FAMILY PRACTICE 05/28/18 08/05/18 Charly Fernandez DO PCP - General FAMILY PRACTICE 08/06/18 12/17/18 None, ProviderMD PCP - General 12/18/18 02/21/19 Charly Fernandez DO PCP - General FAMILY PRACTICE 02/22/19 documented as of this encounter
--- OUTSIDE RECORDS SUMMARY | 2024-08-17 09:32 | XMS_ITS | Clinical Summary ---
Author Organization [facility] Address [facility] [place] [address] Care Team Providers Care Mainframe Developer Name Role Phone Charly Fernandez DO Primary Care Provider Allergies Active Allergy Reactions Criticality Noted Date Comments Atorvastatin Unknown 02/23/2014 Medications aspirin EC 81 MG tablet Take 1 tablet by mouth daily. 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 90 tablet 3 Active HYDROcodone-acetami nophen (NORCO) 5-325 MG tabletIndications:C hronic Pain Take 1 tablet by mouth every 8 (eight) hours as needed for Pain. Indications: Chronic Pain 90 tablet 3 Active sertraline (ZOLOFT) 100 MG tabletIndications:C hronic major depressive disorder Take 1 tablet by mouth once daily 90 tablet 3 Active oxybutynin XL (DITROPAN-XL) 10 MG 24 hr tabletIndications:O verflow incontinence of urine Take 1 tablet by mouth once daily 60 tablet 3 Active metoprolol tartrate (LOPRESSOR) 25 MG tabletIndications:E ssential hypertension Take 1/2 (one-half) tablet by mouth twice daily 90 tablet 3 Active traZODone (DESYREL) 50 MG tabletIndications:E ncounter for preventive health examination TAKE 1 TABLET BY MOUTH ONCE DAILY AT NIGHT 90 tablet 3 Active clonazePAM (KLONOPIN) 0.5 MG tabletIndications:M ajor depression, chronic TAKE 1 TABLET BY MOUTH ONCE DAILY NEEDED 90 tablet 3 Active gabapentin (NEURONTIN) 300 MG capsuleIndications: Chronic neck pain,Chronic bilateral low back pain without sciatica TAKE 1 CAPSULE BY MOUTH NIGHTLY AT BEDTIME 90 capsule 3 Active Active Problems Problem Noted Date Diagnosed Date Essential hypertension 07/10/2022 Overflow incontinence of urine 07/10/2022 Lumbar spinal stenosis 06/03/2018 Rectal mass 07/25/2017 Chronic back pain 06/16/2017 Erectile dysfunction 03/20/2017 Insomnia 07/10/2016 Bowel incontinence 04/19/2016 Shortness of breath 04/09/2016 Muscle spasm 12/27/2014 Chronic obstructive pulmonary disease ([facility]) 12/12/2014 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 ([facility]) 12/12/2014 PVD (peripheral vascular disease) 05/11/2014 Hyperlipidemia 03/15/2014 Arteriosclerosis of coronary artery 02/23/2014 Chronic GERD 02/23/2014 Chronic major depressive disorder 02/23/2014 Chronic neck pain 02/23/2014 Old DE (myocardial infarction) 02/23/2014 Resolved Problems Problem Noted Date Diagnosed Date Resolved Date Screening for prostate cancer 02/18/2018 12/24/2019 Encounter for preventive health examination 02/22/2014 12/24/2019 Immunizations Immunization Administration Dates Next Due Fluzone 6 Months+ Quad (0.5 mL Prefilled Syringe ) 02/02/2019 Influenza Adult (Generic) 02/18/2018 Social History Tobacco Use Types Packs/Day Years Used Date Smoking Tobacco: Former Cigarettes 1 50 0 11/1964 - 11/2014 Smokeless Tobacco: Never Alcohol Use Standard Drinks/Week Comments Yes 0 (1 standard drink = 0.6 oz pur e alcohol) OCCASIONALLY PHQ-2 Answer Date Recorded Patient Health Questionnaire-2 Score 2 07/10/2022 Sex and Gender Information Value Date Recorded Sex Assigned at Not on file Legal Sex Male 5:33 PM CDT Gender Identity Not on file Sexual Orientation Not on file Last Filed Vital Signs Vital Sign Reading Time Taken Comments Blood Pressure 162/86 07/10/2022 8:47 AM CDT Pulse 57 07/10/2022 8:47 AM CDT Temperature 36.8 C (98.2 F) 12/18/2018 11:39 PM CDT Respiratory Rate 23 12/19/2018 1:31 AM CDT Oxygen Saturation 93% 12/19/2018 1:31 AM CDT Inhaled Oxygen Concentration - - Weight 77.1 kg (170 lb) 07/10/2022 8:47 AM CDT Height 182.9 cm (6') 05/12/2020 9: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 Body Mass Index 23.06 05/12/2020 9: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 Plan of Treatment Health Maintenance Due Date Last Done Comments Colorectal Cancer Screening Colonoscopy (10 Years) 1957 Hepatitis C 1975 DTaP, Tdap and Td Vaccines (1 - Tdap) 01/24/1976 Pneumococcal Vaccine: 50+ Years (1 of 2 - PCV) 01/24/1976 Zoster Vaccines (1 of 2) 2007 RSV Immunization or 60+ Years (1 - Risk 60-74 years 1-dose series) 2017 Annual Medicare Wellness Visit 07/10/2022 07/09/2021 ASCVD LDL 07/11/2023 07/10/2022, 06/13, 05/12/2020, Additional history exists COVID-19 Vaccine ( season) 2023 10/24/2020, 08/28/2020 Meningococcal B Vaccine Aged Out No l onger eligible based on patient's age to complete this topic Meningococcal Vaccine Aged Out No corinne gayle eligible based on patient's age to complete this topic RSV Immunizations Under 20 Months Aged Out No longer eligible based on patient's age to complete this topic Procedures Procedure Name Priority Date/Time Associated Diagnosis Comments LIPID PANEL Routine 07/10/2022 9:58 AM CDT Mixed hyperlipidemia from Last 3 Months or Most Recently Relevant to Health Maintenance Results * (ABNORMAL) LIPID PANEL (07/10/2022 9:58 AM CDT) CHOLESTEROL 143 <200 mg/dL [place] HDL 28(L) > OR = 40 mg/dL [place] TRIGLYCERIDES 213(H) <150 mg/dL [place] Comment: If a non-fasting specimen was collected, consider repeat triglyceride testing on a fasting specimen if clinically indicated. Kelly et al. J. of Clin. Lipidol. 2015;9:129-169. LDL (CALCULATED) 84 mg/dL (calc) [place] Comment: Reference range: <100 Desirable range <100 mg/dL for primary prevention; <70 mg/dL for patients with CHD or diabetic patients with > or = 2 CHD risk factors. LDL-C is now calculated using the Fernando-Natalie calculation, which is a validated novel method providing better accuracy than the Friedewald equation in the estimation of LDL-C. Fernando PARR et al. SANTINO. 2013;310(19): 5042-1486 (http://education.[employer]/faq/NNZ807) CHOL/HDL RATIO 5.1(H) <5.0 (calc) [place] NON HDL CHOLESTEROL 115 <130 mg/dL (calc) [place] Comment: For patients with diabetes plus 1 major ASCVD risk factor, treating to a non-HDL-C goal of <100 mg/dL (LDL-C of <70 mg/dL) is considered a therapeutic option. 07/10/2022 9:58 AM CDT 07/11/2022 5:20 AM CDT Narrative Resulting Agency Comment Performing Organization Information: Site ID: Name: [facility] Address: [address] [place] [address] Director: Jus Culp us Charly Fernandez DO LABORATORY Final Resul t [facility] [place] [address] [place] [address], [place] from Last 3 Months or Most Recently Relevant to Health Maintenance Insurance [facility] Care Teams Mainframe Developer Relationship Specialty Start Date End Date Chalry Fernandez DO PCP - General FAMILY PRACTICE 02/22/19
--- OUTSIDE RECORDS SUMMARY | 2024-08-17 09:32 | XMS_ITS | Clinical Summary ---
Author Organization [facility] Address [address] [place] [phone] Phone Care Team Providers Care Fixture Designer Name Role Phone Henri Vlilareal MD Primary Care Provider [phone] Allergies Active Allergy Reactions Criticality Noted Date Comments Atorvastatin Rash Low 06/16/2023 Medications HYDROcodone-acet aminophen (NORCO) 5-325 mg tablet Take 1 Tablet by mouth every 6 hours as needed for Pain, Moderate. Active albuterol (PROVENTIL,MARIA ESTHER ADALBERTO) 0.63 mg/3 mL Solution for Nebulization Take 0.63 mg by inhalation every 4 hours as needed for Shortness of Breath. Active clonazePAM (KlonoPIN) 0.5 mg Tablet Take 0.5 mg by mouth 2 times daily as needed for Anxiety. Active diphenhydrAMINE (BENADRYL) 25 mg tablet Take 50 mg by mouth nightly as needed. Active gabapentin (NEURONTIN) 300 mg capsule Take 300 mg by mouth daily at bedtime. Active loperamide (IMODIUM) 2 mg capsule Take 2 mg by mouth 4 times daily as needed for Diarrhea/Loose Stools. Active metoprolol tartrate (LOPRESSOR) 25 mg tablet Take 12.5 mg by mouth 2 times daily. Active pantoprazole (PROTONIX) 40 mg Tablet, Delayed Release (E.C.) Take 40 mg by mouth daily. Active simvastatin (ZOCOR) 20 mg tablet Take 20 mg by mouth daily with supper. Active traZODone (DESYREL) 50 mg tablet Take 50 mg by mouth daily at bedtime. Active naloxone (NARCAN) 4 mg/spray [place], Non-Aerosol EMERGENCY USE ONLY: Administer 1 spray (4 mg) in one nostril one time. May repeat in alternating nostrils every 2-3 min until responsive or EMS arrives. 2 Each 3 4 Active aspirin (ECOTRIN EC) 81 mg Tablet, Delayed Release (E.C.) Take 81 mg by mouth daily. Active lisinopriL (PRINIVIL) 5 mg tablet Take 2 Tablets (10 mg) by mouth daily at bedtime. 4 Active amLODIPine (NORVASC) 5 mg tablet Take 1 Tablet (5 mg) by mouth daily. 4 Active cyanocobalamin 1,000 mcg Tablet Take 1 Tablet (1,000 mcg) by mouth daily. 4 Active guaiFENesin (MUCINEX) 600 mg Extended Release Biphasic tablet Take 1 Tablet (600 mg) by mouth every 12 hours. 4 Active hydrOXYzine HCL (ATARAX) 10 mg tablet Take 1 Tablet (10 mg) by mouth every 6 hours as needed for Anxiety. 4 Active magnesium hydroxide (MILK OF MAGNESIA) 400 mg/5 mL suspension Take 30 mL by mouth 1 time daily as needed for Constipation. 4 Active mirtazapine (REMERON) 15 mg tablet Take 1 Tablet (15 mg) by mouth daily at bedtime. 4 Active umeclidinium-anamaria anteroL (ANORO ELLIPTA) 62.5-25 mcg/actuation Disk with Device Take 1 Puff by inhalation daily. 4 Active Active Problems Problem Noted Date Diagnosed Date Dysphagia, post-stroke 06/19/2023 Hx of pneumonectomy 06/19/2023 Pneumonia of both lower lobes due to infectious organism 06/16/2023 Panlobular emphysema 06/16/2023 Benign hypertension 06/16/2023 Lumbar spinal stenosis 06/03/2018 Chronic obstructive pulmonary disease 12/12/2014 Hemiplegia as late effect of cerebrovascular dis ease 12/12/2014 Hyperlipidemia 03/15/2014 Arteriosclerosis of coronary artery 02/23/2014 Chronic GERD 02/23/2014 Chronic major depressive disorder 02/23/2014 Old WI (myocardial infarction) 02/23/2014 Resolved Problems Problem Noted Date Diagnosed Date Resolved Date Hemoptysis 06/16/2023 06/23/2023 Encounters Date Type Department Care Team Description 06/19/2024 External Device Data [facility] ABSTRACTION Provider, Abstract 06/19/2024 External Device Data [facility] ABSTRACTION Provider, Abstract 06/08/2024 External Device Data [facility] ABSTRACTION Provider, Abstract 06/02/2024 External Device Data [facility] ABSTRACTION Provider, Abstract from Last 3 Months Social History Tobacco Use Types Packs/Day Years Used Date Smoking Tobacco: Former Cigarettes Q uit: 2014 Tobacco Cessation:Counseling Given: Not Answered Feeling Safe Answer Date Recorded Are you in a relationship wi th someone who hurts you emotionally and/or physically? No 06/16/2023 Food Insecurity Answer Date Recorded Social/Environmental Concerns No concerns Transportation Needs Answer Date Record ed Social/Environmental Concerns No concerns Housing Stability Answer Date Recorded Social/Environmental Concerns No concerns Utility Needs Answer Date Recorded Social/Environmental Concerns No concerns Sex and Gender Information Value Date Recorded Sex Assigned at Not on file Legal Sex Male 2:58 PM PERCUSSION TUNER Gender Identity Not on file Sexual Orientation Not on file Last Filed Vital Signs Vital Sign Reading Time Taken Comments Blood Pressure 176/69 06/23/2023 9:12 AM CDT Pulse 67 06/23/2023 9:12 AM CDT Temperature 37.1 C (98.8 F) 06/23/2023 9:12 AM CDT Respiratory Rate 20 06/23/2023 9:12 AM CDT Oxygen Saturation 100% 06/23/2023 9:12 AM CDT Inhaled Oxygen Concentration - - Weight 77.1 kg (170 lb) 06/16/2023 6:05 PM PERCUSSION TUNER Height 188 cm (6' 2 ) 06/16/2023 6:05 PM PERCUSSION TUNER Body Mass Index 21.83 06/16/2023 6:05 PM PERCUSSION TUNER Plan of Treatment Health Maintenance Due Date Last Done Comments DTAP/TDAP/TD VACCINES (1 - Tdap) 01/24/1976 PNEUMOCOCCAL VACCINE 50+ YEARS (1 of 2 - PCV) 01/23/19 76 COLORECTAL SCREENING 2002 Colorectal Cancer Screening 2002 FIT-DNA Q 3 years 2002 FIT/FOBT Q 1 year 2002 Flex Sig/CT Colonography Q 5 years 2002 ZOSTER VACCINE (1 of 2) 2007 RSV VACCINE (60+ or ) (1 - Risk 60-74 years 1-dose series) 2017 INFLUENZA VACCINE (#1) 2023 02/02/2019 [place] [address] [employer] [facility] Advance Directives For more information, please contact: [phone] * NO CPR (In Event of Cardiopulmonary Arrest) (Latest Code Status on File) Date Activated Date Inactivated Comments 06/19/2023 11:21 AM 06/23/2023 6:03 PM Question Answer Comments Mechanical Ventilation (for respiratory distress) - Invasive (i.e. intubation): No Mechanical Ventilation (for respiratory distress) - Non-Invasive (i.e. BiPAP, CPAP): No * Default Full Code - Needs Discussion Date Activated Date Inactivated Comments 06/16/2023 6:03 PM 06/19/2023 11:21 AM Care Teams Fixture Designer Relationship Specialty Start Date End Date Henri Villareal MD [address] [place] [phone] PCP - General Internal Medicine 06/17/23
--- OUTSIDE RECORDS SUMMARY | 2024-08-17 09:32 | XMS_ITS | Clinical Summary ---
Author Organization [facility] Address [address] [place] [address] Care Team Providers Care Bottle Labeler Name Role Phone Unavailable Primary Care Provider Unavailabl e Source Comments [facility],non-owned Affiliates and Associated Physician Practices is amultiple site organization consisting of ambulatory clinics and hospital sitesin [place], [place], [place] and [place]. This disclosure is being madepursuant to the Care Everywhere program and may not contain all information available regarding this patient. Last updated 18.[facility] Allergies No known active allergies Medications * Be aware that medications may not be up to date on this document. Alwaysverify current medications with the patient. gabapentin (Neurontin) 300 MG capsule Take 1 (one) capsule by mouth at bedtime Active lisinopril (Prinivil; Zestril) 5 MG tablet Take 1 (one) tablet by mouth once daily Active metoprolol tartrate IR (Lopressor) 25 MG tablet Take 12.5 mg by mouth 2 times daily Active traZODone (Desyrel) 50 MG tablet Take 1 (one) tablet by mouth at bedtime Active aspirin (Aspirin) 81 MG chew tablet Take 1 (one) tablet by mouth once daily Active albuterol-iprat ropium (Duo-Neb) 0.5-2.5 (3) MG/3ML nebulizer solution Inhale 3 mL by mouth every 6 hours as needed for Shortness of Breath or Wheezing 2 Active budesonide-form oterol (Symbicort) 160-4.5 MCG/ACT inhaler Inhale 2 (two) puffs by mouth 2 times daily 6 g 2 Active atorvastatin (Lipitor) 20 MG tablet Take 1 (one) tablet by mouth at bedtime 30 tablet 2 Active HYDROcodone-maria elena taminophen (Quinton) 5-325 MG tablet Take 1 (one) tablet by mouth every 4 hours as needed 12 tablet 2 Active clonazePAM (KlonoPIN) 0.5 MG tablet Take 1 (one) tablet by mouth once daily as needed for Anxiety 3 tablet 2 Active Active Problems Problem Noted Date Diagnosed Date Hemoptysis 03/01/2022 Pneumonia due to infectious organism, unspecified laterality, unspecified part of lung 03/01/2022 Social History Tobacco Use Types Packs/Day Years Used Date Smoking Tobacco: Former Cigarettes Smokeless Tobacco: Former Tobacco Cessation:Counseling Given: Not Answered Alcohol Use Standard Drinks/Week Comments Not Currently 0 (1 standard drink = 0.6 oz pur e alcohol) Hunger Vital Sign Answer Date Recorded Within the past 12 months, y ou worried that your food would run out before you got the money to buy more. Never true 03/04/20 22 Within the past 12 months, t he food you bought just didn't last and you didn't have money to get more. Never true 03/04/2022 Sex and Gender Information Value Date Recorded Sex Assigned at Not on file Legal Sex Male 5:22 AM TORCH BRAZER Gender Identity Not on file Sexual Orientation Not on file Last Filed Vital Signs Vital Sign Reading Time Taken Comments Blood Pressure 145/70 03/15/2022 8:38 PM TORCH BRAZER Pulse 70 03/15/2022 8:55 PM TORCH BRAZER Temperature 36.8 C (98.2 F) 03/15/2022 8:38 PM TORCH BRAZER Respiratory Rate 20 03/15/2022 8:55 PM TORCH BRAZER Oxygen Saturation 98% 03/15/2022 8:55 PM TORCH BRAZER Inhaled Oxygen Concentration - - Weight 77.1 kg (170 lb) 03/02/2022 3:46 AM TORCH BRAZER Height 188 cm (6' 2 ) 03/02/2022 3:46 AM TORCH BRAZER Body Mass Index 21.83 03/02/2022 3:46 AM TORCH BRAZER Plan of Treatment Health Maintenance Due Date Last Done Comments COLOGUARD (AGES 45-75) - COL ON CA SCREENING 1957 COLON MONITORING 1957 COLONOSCOPY - COLON CA SCREENING 1957 CT COLONOGRAPHY - COLON CA SCREENING 1957 Colorectal Cancer Screening 1957 FIT - COLON CA SCREENING 1957 FLEX SIG - COLON CA SCREENING 1957 HEPATITIS C SCREENING 01/19/1975 DTAP/TDAP/TD VACCINES (1 - Tdap) 01/24/1976 PNEUMOCOCCAL VACCINE 50+ (1 of 1 - PCV) 2007 ZOSTER VACCINE (1 of 2) 2007 AAA SCREENING 2022 COVID-19 VACCINE (1 - 2023-2 5 season) 2023 DEPRESSION SCREENING 04/14/2024 MEDICARE AWV CALENDAR YEAR 2024 INFLUENZA VACCINE (Season Ended) 2024 02/02/2019, 02/18/2018 Respiratory Syncytial Virus (RSV) Vaccine Pt: or over 60 yrs (1 - 1-dose 75+ series) 01/24/2032 HEPATITIS B VACCINE Aged Out No longe r eligible based on patient's age to complete this topic HIB VACCINE Aged Out No longer eligi ble based on patient's age to complete this topic HPV VACCINE Aged Out No longer eligi ble based on patient's age to complete this topic MENINGOCOCCAL (Group B) VACCINE SHARED DECISION-MAKING Aged Out No longer eligible based on patient's age to complete this topic MENINGOCOCCAL GROUPS A/C/Y/W VACCINE Aged Out No longer eligible b ased on patient's age to complete this topic Insurance [facility] MANAGED MEDICARE ADV Advance Directives * LIMITED RESUSCITATION-PRIOR AND AFTER ARREST (Latest Code Status on File) Date Activated Date Inactivated Comments 03/10/2022 2:10 PM 03/15/2022 10:18 PM Question Answer Comments Limited Resuscitation: No Chest Compress ionNo Intubation, No Invasive Ventilation * Full Code Date Activated Date Inactivated Comments 03/02/2022 4:27 AM 03/10/2022 2:10 PM
--- OUTSIDE RECORDS SUMMARY | 2024-08-17 09:32 | XMS_ITS | Referral Summary ---
Author Organization [place] [address] [facility] Address [address] [place] [address] Care Team Providers Care Veneer Gluer Name Role Phone Henri Villareal MD Primary Care Provide r Encounters Date Type Department Care Team Description 07/02/2024 11:20 AM CDT - 07/08/2024 3:08 PM CDT Hospital Encounter [place] [address] [address] [place] [id number] Delano Tenorio MD Altwal, MD Bert George, MD Sofia Jacobson, MD Faustino Herrera, initial encounter (Primary Dx); Generalized weakness; Chronic obstructive pulmonary disease, unspecified COPD type (HCC); Pneumonia due to infectious organism, unspecified laterality, unspecified part of lung Discharge Disposition: Discharge to long term facility from Last 3 Months Allergies Active Allergy Reactions Criticality Noted Date Comments Atorvastatin Rash,Muscle pain Medium 02/23/2014 Medications budesonide (PULMICORT) 0.5 mg/2 mL nebulizer solution Take 2 mL (0.5 mg total) by nebulization 2 (two) times a day 5 Active gabapentin (NEURONTIN) 300 mg capsule Take 1 capsule (300 mg total) by mouth nightly Active ipratropium-al buteroL (DUO-NEB) 0.5-2.5 mg/3 mL nebulizer solution Take 3 mL by nebulization every 6 (six) hours 5 Active loperamide (IMODIUM) 2 mg capsule Take 2 capsules (4 mg total) by mouth nightly Active metoprolol XL (TOPROL-XL) 50 mg extended release tablet Take 1 tablet (50 mg total) by mouth nightly at bedtime 5 Active simvastatin (ZOCOR) 20 mg tablet Take 1 tablet (20 mg total) by mouth nightly Active traZODone (DESYREL) 50 mg tablet Take 1 tablet (50 mg total) by mouth nightly at bedtime. Active albuterol 2.5 mg /3 mL (0.083 %) nebulizer solution Take 3 mL (2.5 mg total) by nebulization every 6 (six) hours USE 1 VIAL IN NEBULIZER 4 TIMES DAILY FOR 1 MONTH (TAKE EVERY 6-8 HOURS WHILE AWAKE 5 Active aspirin 81 mg enteric coated tablet Take 1 tablet (81 mg total) by mouth nightly 8 Active diphenhydrAMIN E-acetaminophe n (TYLENOL PM) 25-500 mg tablet Take 2 tablets by mouth nightly Active cholecalcifero l (VITAMIN D-3) 5,000 unit capsule Take 1 capsule (5,000 Units total) by mouth daily 30 capsule 5 Active escitalopram (LEXAPRO) 10 mg tablet Take 1 tablet (10 mg total) by mouth daily 30 tablet 1 5 09/06/19 25 Active cyanocobalamin (Vitamin B-12) 2,000 mcg tabletIndicati ons:Prevention of Vitamin B12 Deficiency Take 1 tablet (2,000 mcg total) by mouth daily 30 tablet 1 5 07/08/19 26 Active hydrOXYzine (ATARAX) 25 mg tablet Take 1 tablet (25 mg total) by mouth 4 (four) times a day as needed for anxiety 30 tablet 5 Active amLODIPine (NORVASC) 5 mg tablet Take 2 tablets (10 mg total) by mouth nightly 60 tablet 5 Active clonazePAM (KlonoPIN) 0.5 mg tablet Take 1 tablet (0.5 mg total) by mouth nightly 10 tablet 5 Active HYDROcodone-ac etaminophen (NORCO) 5-325 mg per tabletIndicati ons:Pain Take 1 tablet by mouth every 4 (four) hours as needed for pain 10 tablet 5 Active predniSONE (DELTASONE) 5 mg tablet Take 6 tablets (30 mg) by mouth daily for 3 days, THEN 4 tablets (20 mg) daily for 3 days, THEN 3 tablets (15 mg) daily for 3 days, THEN 2 tablets (10 mg) daily for 3 days, THEN 1 tablet (5 mg) daily for 3 days. 48 tablet 5 07/23/19 25 Active Problems Problem Noted Date Diagnosed Date Moderate protein-calorie malnutrition 07/05/2024 Fall, initial encounter 07/02/2024 Immunizations Immunization Administration Dates Next Due Influenza, Trivalent, High D ose, Split, Preservative Free, Intramuscular 07/05/2024 Social History Tobacco Use Types Packs/Day Years Used Date Smoking Tobacco: Former Cigarettes 3 47 1 2014 Smokeless Tobacco: Never Tobacco Cessation:Counseling Given: No [facility] Utilities Answer Date Recorded In the past 12 months has [employer], [employer], oil, or water [employer] threatened to shut off services in your home? No 07/05/2024 Social Connection and Isolat ion Panel [NHANES] Answer Date Recorded In a typical week, how many times do you talk on the phone with family, friends, or neighbors? More than three times a week 07/05/2024 How often do you get togethe r with friends or relatives? Once a week 07/05/2024 How often do you attend chur or tenriism services? Never 07/05/2024 Do you belong to any clubs o r organizations such as tenriism groups, unions, fraternal or athletic groups, or school groups? No 07/05/2024 How often do you attend meet ings of the clubs or organizations you belong to? Never 07/05/2024 Are you , , di vorced, , never , or living with a partner? 07/05/2024 AUDIT-C Answer Date Recorded Q1: How often do you have a drink containing alc ohol? Monthly or less 07/02/2024 Q2: How many drinks containi ng alcohol do you have on a typical day when you are drinking? 1 or 2 07/02/2024 Q3: How often do you have si x or more drinks on one occasion? Never 07/02/2024 Overall Financial Resource Strain (CARDIA) Answe r Date Recorded How hard is it for you to pa y for the very basics like food, housing, medical care, and heating? Not very hard 07/05/2024 Hunger Vital Sign Answer Date Recorded Within the past 12 months, y ou worried that your food would run out before you got the money to buy more. Never true 07/06/19 25 Within the past 12 months, t he food you bought just didn't last and you didn't have money to get more. Never true 07/05/2024 PRAPARE - Transportation Answer Date Re corded In the past 12 months, has l ack of transportation kept you from medical appointments or from getting medications? No 06/13 In the past 12 months, has l ack of transportation kept you from meetings, work, or from getting things needed for daily living? No 07/05/2024 Housing Stability Vital Sign Answer Richard e Recorded In the last 12 months, was t here a time when you were not able to pay the mortgage or rent on time? No 07/05/2024 In the past 12 months, how m any times have you moved where you were living? 0 07/05/2024 At any time in the past [address] [facility], were you homeless or living in a skilled nursing (including now)? No 07/05/2024 Personal Safety Answer Date Recorded Have you ever been in or are you currently in a harmful physical or emotional relationship or is someone making you feel afraid or unsafe? Denies 07/02/2024 Sex and Gender Information Value Date Recorded Sex Assigned at Not on file Legal Sex Male 7:06 PM [employer] Gender Identity Not on file Sexual Orientation Not on file Last Filed Vital Signs Vital Sign Reading Time Taken Comments Blood Pressure 163/71 07/08/2024 3:01 PM CDT Pulse 63 07/08/2024 3:01 PM CDT Temperature 36.3 C (97.3 F) 07/08/2024 7:49 AM CDT Respiratory Rate 18 07/08/2024 3:01 PM CDT Oxygen Saturation 95% 07/08/2024 3:01 PM CDT Inhaled Oxygen Concentration - - Weight 82.7 kg (182 lb 5.1 oz) 07/07/2024 6:00 A M CDT Height 188 cm (6' 2 ) 07/02/2024 5:21 PM CDT Body Mass Index 23.41 07/02/2024 5:21 PM CDT Plan of Treatment Not on file Procedures Procedure Name Priority Date/Time Associated Diagnosis Comments PSA SCREEN Routine 07/06/2024 4:37 PM CDT MAGNESIUM Routine 07/03/2024 4:49 AM CDT EGFR Routine 07/03/2024 4:49 AM CDT THYROID FUNCTION CASCADE Routine 07/03/2024 4:49 AM CDT TROPONIN T HIGH-SENSITIVITY Routine 07/03/2024 4:49 AM CDT CBC WITHOUT DIFFERENTIAL Routine 07/03/2024 4:49 AM CDT BASIC METABOLIC PANEL Routine 07/03/2024 4:49 AM CDT VITAMIN D 25 HYDROXY Add-On 07/02/2024 4:43 PM CDT URINALYSIS, MICROSCOPIC ONLY STAT 07/02/2024 4:06 PM CDT URINALYSIS AND REFLEX TO MICROSCOPIC AND CULTURE STAT 07/02/2024 4:06 PM CDT BLOOD CULTURE STAT 07/02/2024 3:58 PM CDT BLOOD CULTURE STAT 07/02/2024 3:[address] CHEST PE ABDOMEN PELVIS W CONTRAST ED 07/02/2024 1:57 PM CDT PRO B-TYPE NATRIURETIC PEPTIDE Timed 07/02/2024 1:06 PM CDT VITAMIN B12 Timed 07/02/2024 1:06 PM CDT PHOSPHORUS Timed 07/02/2024 1:06 PM CDT MAGNESIUM Timed 07/02/2024 1:06 PM CDT TROPONIN T HIGH-SENSITIVITY 2-HOUR Timed 07/02/2024 1:06 PM CDT XR CHEST 1 VIEW ED 07/02/2024 12:04 PM CDT XR HIP RIGHT W PELVIS 2 OR 3 VIEWS ED 07/02/2024 12:[address] CERVICAL SPINE WO CONTRAST ED 07/02/2024 11:[address] HEAD WO CONTRAST ED 07/02/2024 1 1:48 AM CDT EGFR STAT 07/02/2024 11:31 AM CDT DIFFERENTIAL AUTO STAT 07/02/2024 11: 31 AM CDT TROPONIN T HIGH-SENSITIVITY SERIES (BASELINE, 2HR, 4HR, 6HR) STAT 07/02/2024 11:31 AM CDT SEPSIS LACTATE WITH REFLEX STAT 07/02/2024 11:31 AM CDT COMPREHENSIVE METABOLIC PANEL STAT 07/02/2024 11:31 AM CDT CBC WITH AUTO DIFFERENTIAL STAT 07/02/2024 11:31 AM CDT INFLUENZA A/B, RSV, AND COVID-19 PCR STAT 07/02/2024 11:31 AM CDT ECG 12-LEAD STAT 07/02/2024 11:[address] ABDOMEN PELVIS WO CONTRAST Routine 05/12/2016 1:42 PM [employer] from Last 3 Months or Most Recently Relevant to Health Maintenance Results * PSA screen (07/06/2024 4:37 PM CDT) PSA-Total 2.49 <=5.40 ng/mL Comment: Interpretive Data AGE SEX REFERENCE INTERVAL 0 minutes-150 years Female None 0 minutes-49 years Male None 50-59 years Male 0-3.90 60-69 years Male 0-5.40 70-79 years Male 0-6.20 80-150 years Male 0-6.20 The [employer]iti PSA Total assay procedure was used. Results from different manufacturers or methods may not be comparable. Serial testing should be performed using the same method. Current interpretive data last revised 21. Testing performed by: [address] [address] Blood 07/06/2024 4:37 PM CDT 07/06/2024 4:44 PM CDT us Candelaria Wilson MD LAB BLOOD ORDERABLES Final Result Performing Organization Address [facility] Co de Phone Number [address] [employer] [place] [address] * Troponin T high-sensitivity (07/03/2024 4:49 AM CDT) Pathologist [facility] Trop T hs 13 <=22 ng/L Comment: Interpretive Data For further hscTnT resources including the diagnostic algorithm and an aid in interpretation, copy and paste this link: https://nrl.testcatalog.org/show/hsTrop Current Interpretive Data last revised 2020. Testing performed by: [address] [address] Blood 07/03/2024 4:49 AM CDT 07/03/2024 5:22 AM CDT us Yaquelin Monreal NP LAB BLOOD ORDERABLES Final R esult Performing Organization Address City/[facility]/ZIP Co de Phone Number [address] [employer] [place] [address] * eGFR (07/03/2024 4:49 AM CDT) eGFR 74 >=60 mL/min/1. 73 m2 Comment: Interpretive Data Reference Interval Normal >/= 90 mL/min/1.73m2 Mildly decreased* 60 - 89 mL/min/1.73m2 Mildly to moderately decreased 45 - 59 mL/min/1.73m2 Moderately to severely decreased 30 - 44 mL/min/1.73m2 Severely decreased 15 - 29 mL/min/1.73m2 Kidney Failure < 15 mL/min/1.73m2 *Relative to young adult level Estimated glomerular filtration rate is determined by the 2020 CKD-EPI equation recommended by the National Kidney Foundation (A Unifying Approach to GFR Estimation: Recommendations of the NKF-ASK Task Force on Reassessing the Inclusion of Race in Diagnosing Kidney Disease, JASN 2020). The CKD-EPI equation should not be used for patients with unstable renal function and has not been validated in children and those over 70. Current interpretive data was last reviewed 2021. Testing performed by: [address] [address] Blood 07/03/2024 4:49 AM CDT 07/03/2024 5:22 AM CDT Yaquelin Rah [employer] LAB BLOOD ORDERABLES Final R esult Performing Organization Address City/[facility]/ZIP Co de Phone Number [place] [address] [facility] [place] [address] * Thyroid Function [place]ombs (07/03/2024 4:49 AM CDT) TSH 0.62 0.30 - 4.20 mcIUnit/mL Comment:Testing performed by : [address] [address] Blood 07/03/2024 4:49 AM CDT 07/03/2024 5:22 AM CDT Yaquelin Transfer [employer] LAB BLOOD ORDERABLES Final R esult [place] [address] [facility] [place] [address] * CBC without differential (07/03/2024 4:49 AM CDT) [facility] WBC 8.4 3.8 - 9.9 K/cumm Comment:Testing performed by : [address] [address] Hgb 14.0 13.0 - 17.5 g/dL BRIAN Comment:Testing performed by : [address], [address] Hct 41.5 38.9 - 50.3 % BRIAN Comment:Testing performed by : [address], [address] Plt 208 150 - 400 K/cumm BRIAN Comment:Testing performed by : [address] [address] MPV 11.3 9.1 - 12.3 fL BRIAN Comment:Testing performed by : [address], [address] RBC 4.73 4.30 - 5.80 M/cumm BRIAN Comment:Testing performed by : [address] [address] MCV 87.7 81.3 - 96.4 fL BRIAN Comment:Testing performed by : [address] [address] MCH 29.6 27.1 - 33.3 pg BRIAN Comment:Testing performed by : [address] [address] MCHC 33.7 32.3 - 35.7 g/dL BRIAN Comment:Testing performed by : [address], [address] RDW CV 12.3 11.1 - 14.9 % BRIAN Comment:Testing performed by : [address] [address] RDW SD 39.5 35.7 - 48.1 fL BRIAN Comment:Testing performed by : [address], [address] NRBC abs 0.00 0.00 - 0.01 K/cumm BRIAN Comment:Testing performed by : [address] [address] Blood 07/03/2024 4:49 AM CDT 07/03/2024 5:21 AM CDT Yaquelin Monreal NP LAB BLOOD ORDERABLES Final R esult Performing Organization Address [facility] Co de Phone Number [address] [employer] [place] [address] * Magnesium (07/03/2024 4:49 AM CDT) [facility] Magnesium 2.1 1.4 - 2.5 mg/dL Comment:Testing performed by : [address] [address] Blood 07/03/2024 4:49 AM CDT 07/03/2024 5:22 AM CDT Gianni Noel MD LAB BLOOD ORDERABLES Fi nal Result Performing Organization Address [facility] de Phone Number [address] [address] * Basic metabolic panel (07/03/2024 4:49 AM CDT) [facility] Sodium 136 135 - 145 mmol/L Comment:Testing performed by : [address] [address] Potassium, pl 3.4 3.3 - 4.9 mmol/L BRIAN Comment:Testing performed by : [address] [address] Chloride 98 97 - 110 mmol/L BRIAN Comment:Testing performed by : [address] [address] CO2 27 22 - 32 mmol/L BRIAN Comment:Testing performed by : [address] [address] Anion gap 11 2 - 15 mmol/L BRIAN Comment:Testing performed by : [address] [address] BUN 18 6 - 25 mg/dL BRIAN Comment:Testing performed by : [address] [address] Creatinine 1.10 0.80 - 1.30 mg/dL BRIAN Comment:Testing performed by : [address] [address] Glucose 158 70 - 199 mg/dL BRIAN Comment: Interpretive Data Fasting glucose >/= 126 mg/dl is diagnostic for diabetes. Fasting is defined as no caloric intake for at least 8 hours. Fasting glucose between 100 mg/dl to 125 mg/dl is diagnostic of prediabetes. In a patient with classic symptoms of hyperglycemia or hyperglycemic crisis, a random glucose >/= 200 mg/dl is diagnostic for diabetes. In the absence of unequivocal hyperglycemia, results should be confirmed by repeat testing. The classification and Diagnosis of Diabetes Diabetes Care 202; 46: S19-S40. Current interpretive data was last revised 2022. Testing performed by: [address] [address] Calcium 8.8 8.5 - 10.3 mg/dL BRIAN Comment:Testing performed by : [address] [address] Blood 07/03/2024 4:49 AM CDT 07/03/2024 5:22 AM CDT Yaquelin Monreal NP LAB BLOOD ORDERABLES Final R esult BRIAN [address] [facility] [place] [address] * (ABNORMAL) Vitamin D 25 hydroxy (07/02/2024 4:43 PM CDT) Vitamin D 25-OH <6.0(L) 30.0 - 80.0 ng/mL Blood 07/02/2024 4:43 PM CDT 07/02/2024 8:33 PM CDT us Yaquelin Rah [employer] LAB BLOOD ORDERABLES Final R esult BRIAN US [address] [facility] [place] [address] * (ABNORMAL) Urinalysis reflex to microscopic and culture Urine (07/02/2024 4:06 PM CDT) Color, ur Yellow Yellow Comment:Testing performed by : [address] [address] Clarity, ur Clear Clear BRIAN US Comment:Testing performed by : [address] [address] Specific gravity, ur >1.050(A) 1.003 - 1.030 BRIAN US Comment:Testing performed by : [address] [address] pH, urine 5.5 BRIAN Comment: Interpretive Data U rine pH is affected by diet, medications, systemic acid-base disturbances, and renal tubular function. pH may affect urinary stone formation. For example, urine pH below 6.0 may help reduce the tendency for calcium phosphate stones and pH greater than 6.0 may reduce the tendency for uric acid stone formation. Source: [facility] [employer] Current Interpretive Data was last revised on 2017 Testing performed by: [address] [address] Protein, ur ql 1+(A) Negative BRIAN US Comment:Testing performed by : [address] [address] Glucose, ur ql Negative Negative BRIAN US Comment:Testing performed by : [address] [address] Ketones, ur Negative Negative BRIAN US Comment:Testing performed by : [address] [address] Bilirubin, ur Negative Negative BRIAN US Comment:Testing performed by : [address] [address] Blood, ur 1+(A) Negative BRIAN US Comment:Testing performed by : [address], [place]., [address] Urobilinogen, ur <2.0 <2.0 mg/dL BRIAN US Comment:Testing performed by : [address], [place]., [address] Nitrite, ur Negative Negative BRIAN US Comment:Testing performed by : [address], [place]., [address] Leukocyte esterase, ur Negative Negative BRIAN US Comment:Testing performed by : [address], [place]., [address] UA reflex comment Reflex to microscopic UA will be performed. BRIAN US Comment:Testing performed by : [address], [place]., [address] Urine 07/02/2024 4:06 PM CDT 07/02/2024 4:10 PM CDT us Delano Tenorio MD LAB MICROBIOLOGY - GEN ERAL ORDERABLES Final Result BRIAN [address] [facility] [place] [address] * (ABNORMAL) Urinalysis, microscopic only (07/02/2024 4:06 PM CDT) WBC, ur 0-5 0 - 5 /HPF Comment:Testing performed by : [facility] [address] [place] [address]., [address] RBC, ur 3-5(A) 0 - 2 /HPF BRIAN US Comment:Testing performed by : [facility] [address] [place] [address], [place]., [address] Epithelial cells, squamous, ur 1-5 0 - 5 /HPF BRIAN US Comment:Testing performed by : [address], [place]., [address] Mucous, ur Present(A) BRIAN US Comment:Testing performed by : [address], [place]., [address] Culture Reflex Comment Reflex conditions for urine culture (WBC >10) not met. BRIAN US Comment:Testing performed by : [address] [place] [address] Urine 07/02/2024 4:06 PM CDT 07/02/2024 4:10 PM CDT Delano Tenorio MD LAB URINE ORDERABLES F inal Result BRIAN [address] [facility] [place] [address] * Blood culture Blood Peripheral (07/02/2024 3:58 PM CDT) Report Final Report: No growth Comment:Testing performed by : [facility], [address] [place]., [address] Blood (Peripheral) 07/02/2024 3:58 PM CDT 07/02/2024 7:33 PM CDT Narrative CHANGRAYSON - 07/07/2024 7:00 AM CDT From a different site than #1. Draw Blood cultures before administration of Antibiotics Collection->Peripheral 1. Blood cultures are incubated for 4 days on a continuously monitored blood culture system. The first report of a negative culture is issued within 24 hours of receipt of the specimen in the laboratory. 2. Positive culture results are reported as soon as they are detected. 3. The most important factor for detection of microbes in the setting of bloodstream infection is the volume of blood submitted for culture. Failure to collect an optimal blood volume can result in false negative blood cultures. 4. For pediatric patients, the recommended blood volume to collect follows a weight based strategy. See the electronic test catalog for collection instructions. 5. For positive blood cultures, a rapid molecular test may be performed for organism identification using the james ePlex blood culture identification panel for gram positive (BCID-GP) and gram negative (BCID-GN) organisms. This nucleic acid amplification test detects microbial DNA in positive blood culture broth. This assay has been cleared by the [place] Food and Drug Administration and its performance characteristics have been verified by the [facility] Microbiology Laboratory. For questions about this culture, contact the Microbiology Laboratory at [phone]. Interpretive data was last revised on 24. Delano Tenorio MD LAB MICROBIOLOGY - GEN ERAL ORDERABLES Final Result Performing Organization Address City/[facility]/ZIP Co de Phone Number BRIAN Mcarthur [facility] [employer] [place] [address] * Blood culture Blood Peripheral (07/02/2024 3:50 PM CDT) Report Final Report: No growth Comment:Testing performed by : [facility], [address] [place]., [address] Blood (Peripheral) 07/02/2024 3:50 PM CDT 07/02/2024 7:34 PM CDT Elva BRIAN US - 07/07/2024 7:00 AM CDT Draw Blood cultures before administration of Antibiotics Collection->Peripheral 1. Blood cultures are incubated for 4 days on a continuously monitored blood culture system. The first report of a negative culture is issued within 24 hours of receipt of the specimen in the laboratory. 2. Positive culture results are reported as soon as they are detected. 3. The most important factor for detection of microbes in the setting of bloodstream infection is the volume of blood submitted for culture. Failure to collect an optimal blood volume can result in false negative blood cultures. 4. For pediatric patients, the recommended blood volume to collect follows a weight based strategy. See the electronic test catalog for collection instructions. 5. For positive blood cultures, a rapid molecular test may be performed for organism identification using the james ePlex blood culture identification panel for gram positive (BCID-GP) and gram negative (BCID-GN) organisms. This nucleic acid amplification test detects microbial DNA in positive blood culture broth. This assay has been cleared by the [place] Food and Drug Administration and its performance characteristics have been verified by the [facility] Laboratory. For questions about this culture, contact the Microbiology Laboratory at [phone]. Interpretive data was last revised on 24. us Delano Tenorio MD LAB MICROBIOLOGY - GEN ERAL ORDERABLES Final Result Performing Organization Address City/[facility]/ZIP Co de Phone Number BRIAN Mcarthur [facility] [employer] [place] [address] * CT Chest PE (CTA) Abdomen Pelvis W Contrast (07/02/2024 1:57 PM CDT) Anatomical Region Laterality Modality Body N/A Computed Tomogra phy 07/02/2024 2:43 PM CDT Narrative 07/02/2024 3:07 PM CDT EXAM DESCRIPTION: CT CHEST PE (CTA) ABDOMEN PELVIS W CONTRAST REASON FOR STUDY: chest pain, abd pain Patient presents with complaints of fall this morning at 0500. Patient complains of pain to occipital area. Patient denies LOC. Patient denies neck pain. 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 No obvious deformities noted upon inspection TECHNIQUE: CT angiogram of the chest with routine abdomen and pelvis performed with intravenous and without oral contrast using helical scanning technique with dynamic intravenous contrast injection. Reconstructed coronal and sagittal MPR images reviewed. All images stored on PACS. 3D MIP images of the chest rendered on scanning unit and reviewed at time of interpretation. Automated exposure control was used as a dose optimization technique for this examination. CONTRAST TYPE/DOSE: 100mL of IOVERSOL 350 MG IODINE/ML INTRAVENOUS SYRINGE injected via intravenous COMPARISON: Chest x-ray from the same day FINDINGS: This exam is compromised by respiratory motion. CHEST CHEST VASCULATURE: Opacification of the pulmonary circulation is suboptimal. No definite acute pulmonary thromboembolism. The thoracic aorta is extremely tortuous, probably accounting for the apparent widening of the mediastinum. LUNGS: Severe emphysema is seen. A small infiltrate in the right upper lobe is characterized by nodularity. There is irregular peripheral consolidation in the right upper hemithorax posteriorly. Some architectural distortion is seen in the left upper lobe. PLEURA: No effusion. No pneumothorax. Some calcified pleural thickening is seen at the right lung apex. MEDIASTINUM/TRE: No identified masses or abnormal nodes. HEART: Heart size is normal with no pericardial effusion. AXILLA: No adenopathy. CHEST WALL: No masses. No subcutaneous air. HARDWARE/LINES/TUBES: None. MUSCULOSKELETAL CHEST: There is deformity of the right 5th rib posteriorly and laterally perhaps due to previous surgery. The rib has probably been resected. Correlation with the surgical history is required. ABDOMEN/PELVIS LIVER: Normal size. No identified cystic or solid masses. GALLBLADDER: No stones identified. No wall thickening or inflammatory changes. BILE DUCTS: No intrahepatic or extrahepatic ductal dilatation. SPLEEN: Normal size. No focal lesions. PANCREAS: No identified cystic or solid masses. No significant calcifications. No adjacent inflammation or peripancreatic fluid collections. Pancreatic duct not dilated. ADRENALS: Normal. KIDNEYS/URINARY TRACT: Both kidneys function. No suspicious mass or hydronephrosis was seen. There is a 1.5 cm benign cyst in the right kidney. Urinary bladder is unremarkable. GI: There is no bowel obstruction or inflammatory bowel disease. Numerous diverticuli are seen in the sigmoid colon. There is no diverticulitis. PERITONEUM: No ascites or free air. RETROPERITONEUM: No mass or adenopathy. REPRODUCTIVE: The prostate may be enlarged. The right seminal vesicle appears enlarged. VASCULATURE ABDOMEN: No abdominal aortic aneurysm. Extensive mural calcification is seen. MUSCULOSKELETAL ABDOMEN PELVIS: No acute finding. OTHER: No significant abnormality. IMPRESSION: Tortuosity of the thoracic aorta accounting for the apparent widening of the mediastinum Deformity of the right 5th rib probably due to previous resection. Correlation with the surgical history is required. No definite acute pulmonary embolism. Irregular peripheral consolidation in the right upper hemithorax posteriorly. This might be due to scarring. Correlation with the patient's symptoms is recommended to exclude pneumonia. Correlation with previous imaging studies would be helpful. Small infiltrate in the right upper lobe characterized by nodularity. Correlation with the patient's symptoms and white blood cell count would be helpful to exclude pneumonia Enlargement of the right seminal vesicle. Correlation with the patient's PSA is recommended. Severe emphysema Recommend evaluation for annual lung cancer screening enrollment if the patient qualifies based on clinical factors and smoking history. THIS IS AN ELECTRONICALLY VERIFIED FINAL REPORT 07/02/2024 3:07 PM - Electronically signed by Darrell Boggs M.D. TEREZA: TEREZA Report ID: [id number] Reading Location: [id number] Procedure Note Ap Boggs MD - 07/02/2024 EXAM DESCRIPTION: CT CHEST PE (CTA) ABDOMEN PELVIS W CONTRAST REASON FOR STUDY: chest pain, abd pain Patient presents with complaints of fall this morning at 0500. Patient complains of pain to occipital area. Patient denies LOC. Patient deniesneck pain. 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 Reconstructed coronal and sagittal MPR images reviewed. All images stored on PACS. 3D MIP images ofthe chest rendered on scanning unit and reviewed at time of interpretation. Automated exposure control was used as a dose optimization technique forthis examination. CONTRAST TYPE/DOSE: 100mL of IOVERSOL 350 MG IODINE/ML INTRAVENOUS SYRINGE injected via intravenous COMPARISON: Chest x-ray from the same day FINDINGS: This exam is compromised by respiratory motion. CHEST CHEST VASCULATURE: Opacification of the pulmonary circulation issuboptimal. No definite acute pulmonary thromboembolism. The thoracic aorta isextremely tortuous, probably accounting for the apparent widening of themediastinum. LUNGS: Severe emphysema is seen. A small infiltrate in the right upperlobe is characterized by nodularity. There is irregular peripheralconsolidation in the right upper hemithorax posteriorly. Some architectural distortionis seen in the left upper lobe. PLEURA: No effusion. No pneumothorax. Some calcified pleural thickeningis seen at the right lung apex. MEDIASTINUM/TRE: No identified masses or abnormal nodes. HEART: Heart size is normal with no pericardial effusion. AXILLA: No adenopathy. CHEST WALL: No masses. No subcutaneous air. HARDWARE/LINES/TUBES: None. MUSCULOSKELETAL CHEST: There is deformity of the right 5th ribposteriorly and laterally perhaps due to previous surgery. The rib has probably been resected. Correlation with the surgical history is required. ABDOMEN/PELVIS LIVER: Normal size. No identified cystic or solid masses. GALLBLADDER: No stones identified. No wall thickening or inflammatory changes. BILE DUCTS: No intrahepatic or extrahepatic ductal dilatation. SPLEEN: Normal size. No focal lesions. PANCREAS: No identified cystic or solid masses. No significant calcifications. No adjacent inflammation or peripancreatic fluidcollections. Pancreatic duct not dilated. ADRENALS: Normal. KIDNEYS/URINARY TRACT: Both kidneys function. No suspicious mass or hydronephrosis was seen. There is a 1.5 cm benign cyst in the rightkidney. Urinary bladder is unremarkable. GI: There is no bowel obstruction or inflammatory bowel disease.Numerous diverticuli are seen in the sigmoid colon. There is no diverticulitis. PERITONEUM: No ascites or free air. RETROPERITONEUM: No mass or adenopathy. REPRODUCTIVE: The prostate may be enlarged. The right seminal vesicle appears enlarged. VASCULATURE ABDOMEN: No abdominal aortic aneurysm. Extensive mural calcification is seen. MUSCULOSKELETAL ABDOMEN PELVIS: No acute finding. OTHER: No significant abnormality. IMPRESSION: Tortuosity of the thoracic aorta accounting for the apparent widening ofthe mediastinum Deformity of the right 5th rib probably due to previous resection. Correlation with the surgical history is required. No definite acute pulmonary embolism. Irregular peripheral consolidation in the right upper hemithoraxposteriorly. This might be due to scarring. Correlation with the patient's symptoms is recommended to exclude pneumonia. Correlation with previous imagingstudies would be helpful. Small infiltrate in the right upper lobe characterized by nodularity. Correlation with the patient's symptoms and white blood cell count wouldbe helpful to exclude pneumonia Enlargement of the right seminal vesicle. Correlation with the patient'sPSA is recommended. Severe emphysema Recommend evaluation for annual lung cancer screening enrollment if the patient qualifies based on clinical factors and smoking history. THIS IS AN ELECTRONICALLY VERIFIED FINAL REPORT 07/02/2024 3:07 PM - Electronically signed by Darrell Boggs M.D. TEREZA: TEREZA Report ID: [id number] Reading Location: [place] [address] us Delano Tenorio MD IMG CT PROCEDURES Viji l Result * Troponin T high-sensitivity 2-hour (07/02/2024 1:06 PM CDT) Trop T hs 22 <=22 ng/L Comment: Interpretive Data For further hscTnT resources including the diagnostic algorithm and an aid in interpretation, copy and paste this link: https://nrl.testcatalog.org/show/hsTrop Current Interpretive Data last revised 2020. Testing performed by: [address] [address] Trop T hs delta -2 ng/L BRIAN US Comment:Testing performed by : [address] [address] Trop T hs interp Insignificant BRIAN US Comment:Testing performed by : [facility], [address] [place] [address]., [address] Blood 07/02/2024 1:06 PM CDT 07/02/2024 1:12 PM CDT us Delano Tenorio MD LAB BLOOD ORDERABLES F inal Result BRIAN [address] [facility] Department [place] [address] * Pro B-type natriuretic peptide (07/02/2024 1:06 PM CDT) NT-proBNP 158 <=300 pg/mL Comment: Interpretive Comments: A. Dyspnea in Acute Care Setting All Ages: < 300 pg/ml, acute heart failure unlikely. < 50 yrs: 300 - 450 pg/ml, further investigation warranted. > 450 pg/ml, acute heart failure likely. 50 - 74 yrs: 300 - 900 pg/ml, further investigation warranted. > 900 pg/ml, acute heart failure likely . > or = 75 yrs: 450 - 1800 pg/ml, further investigation warranted. > 1800 pg/ml, acute heart failure likely. B. Non-acute Setting < 75 yrs < 125 pg/ml, rules out heart failure. > or = 125 pg/ml, further investigation warranted. > or = 75 yrs < 450 pg/ml, rules out heart failure. > or = 450 pg/ml, further investigation warranted. - Knowledge of each individual patient's NT-proBNP range may be more useful than using similar cut-points for every patient. Please note that marked elevations in NT-proBNP levels may be observed in state other than Left Ventricular Congestive Failure, including: acute coronary syndromes, right heart strain/failure (including pulmonary embolism and cor pulmonale), critical illness, renal failure, as well as advanced age. - References: 1. Librado CHU et.al. Eur Heart J. 2006:27:330-337. 2. Nanda LE, Jatin [place]. J. AM Wai Cardiol: Cardiovasc Imag. 2009;2: 216- 225. Interpretive Data Last Revised Date: 2017. Testing performed by: [facility], [address] [place] [address]., [address] Blood 07/02/2024 1:06 PM CDT 07/02/2024 1:12 PM CDT Jose Reynolds MD LAB BLOOD ORDERABLES Final Result Performing Organization Address City/[facility]/ZIP Co de Phone Number [address] [address] * Phosphorus (07/02/2024 1:06 PM CDT) Phosphorus, pl 3.3 2.3 - 4.5 mg/dL Comment:Testing performed by : [address] [address] Blood 07/02/2024 1:06 PM CDT 07/02/2024 1:12 PM CDT Jose Reynolds MD LAB BLOOD ORDERABLES Final Result Performing Organization Address [facility] Co de Phone Number [address] [address] * Magnesium (07/02/2024 1:06 PM CDT) Pathologist [facility] Magnesium 2.0 1.4 - 2.5 mg/dL Comment:Testing performed by : [address] [address] Blood 07/02/2024 1:06 PM CDT 07/02/2024 1:12 PM CDT Jose Reynolds MD LAB BLOOD ORDERABLES Final Result Performing Organization Address City/[facility] Co de Phone Number [address] [address] * Vitamin B12 (07/02/2024 1:06 PM CDT) Vitamin B12 365 230 - 1,250 pg/mL Comment:Testing performed by : [address] [address] Blood 07/02/2024 1:06 PM CDT 07/02/2024 1:12 PM CDT Jose Reynolds MD LAB BLOOD ORDERABLES Final Result BRIAN [address] [facility] Department [place] [address] * XR Hip Right 2 or 3 Views W Pelvis (07/02/2024 12:04 PM CDT) Anatomical Region Laterality Modality Lower Extremities, Hip, Pelvis Right C omputed Radiography 07/02/2024 1:06 PM CDT Narrative 07/02/2024 1:08 PM CDT EXAM DESCRIPTION: XR HIP RIGHT 2 OR 3 VIEWS W PELVIS REASON FOR STUDY: pain Pt states hip pain today and unable to get his air today TECHNIQUE: Two views right hip and frontal view pelvis COMPARISON: None available FINDINGS: No fracture or dislocation. No lytic or destructive process. Moderate degenerative changes both hips, lumbosacral junction and SI joints. Soft tissues are unremarkable. IMPRESSION: Moderate degenerative changes without acute findings. THIS IS AN ELECTRONICALLY VERIFIED FINAL REPORT 07/02/2024 1:08 PM - Electronically signed by Sylvester Leger M.D. RB: JOYCE Report ID: [id number] Reading Location: [id number] Procedure Note Sylvester Leger MD - 07/02/2024 EXAM DESCRIPTION: XR HIP RIGHT 2 OR 3 VIEWS W PELVIS REASON FOR STUDY: pain Pt states hip pain today and unable to get his air today TECHNIQUE: Two views right hip and frontal view pelvis COMPARISON: None available FINDINGS: No fracture or dislocation. No lytic or destructive process. Moderate degenerative changes both hips, lumbosacral junction and SIjoints. Soft tissues are unremarkable. IMPRESSION: Moderate degenerative changes without acute findings. THIS IS AN ELECTRONICALLY VERIFIED FINAL REPORT 07/02/2024 1:08 PM - Electronically signed by Sylvester Leger M.D. RB: JOYCE Report ID: [id number] Reading Location: [id number] us Delano Tenorio MD IMG XR PROCEDURES Viji l Result * XR Chest 1 Vw Portable (07/02/2024 12:04 PM CDT) Anatomical Region Laterality Modality Body, Chest N/A Computed Radiogr aphy 07/02/2024 1:05 PM CDT Narrative 07/02/2024 1:06 PM CDT EXAM DESCRIPTION: XR CHEST 1 VIEW REASON FOR STUDY: dyspnea Pt states hip pain today and unable to get his air today TECHNIQUE: Single-view COMPARISON: None available FINDINGS: Central vascularity are somewhat ill-defined. Superior mediastinal widening may be artifactual due to portable technique. However, mediastinal process suggest mass adenopathy or even vascular abnormality not excluded. Please correlate clinically and consider CT chest with IV contrast. Lungs are expanded without dense consolidation, effusion or pneumothorax. IMPRESSION: Ill-defined central vascularity could indicate vascular congestion or peribronchial inflammation. Superior mediastinal widening may be artifactual due to portable/AP technique. However, mass, adenopathy or even vascular abnormality not excluded. Consider CT chest with IV contrast if clinical concerns are high. THIS IS AN ELECTRONICALLY VERIFIED FINAL REPORT 07/02/2024 1:06 PM - Electronically signed by Sylvester Leger M.D. RB: JOYCE Report ID: [id number] Reading Location: [id number] Procedure Note Sylvester Leger MD - 07/02/2024 EXAM DESCRIPTION: XR CHEST 1 VIEW REASON FOR STUDY: dyspnea Pt states hip pain today and unable to get his air today TECHNIQUE: Single-view COMPARISON: None available FINDINGS: Central vascularity are somewhat ill-defined. Superior mediastinal widening may be artifactual due to portabletechnique. However, mediastinal process suggest mass adenopathy or even vascular abnormality not excluded. Please correlate clinically and consider CTchest with IV contrast. Lungs are expanded without dense consolidation, effusion or pneumothorax. IMPRESSION: Ill-defined central vascularity could indicate vascular congestion or peribronchial inflammation. Superior mediastinal widening may be artifactual due to portable/AP technique. However, mass, adenopathy or even vascular abnormality not excluded. Consider CT chest with IV contrast if clinical concerns arehigh. THIS IS AN ELECTRONICALLY VERIFIED FINAL REPORT 07/02/2024 1:06 PM - Electronically signed by Sylvester Leger M.D. RB: JOYCE Report ID: [id number] Reading Location: [id number] us Delano Tenorio MD IMG XR PROCEDURES Viji l Result * CT Cervical Spine WO Contrast (07/02/2024 11:48 AM CDT) Anatomical Region Laterality Modality Spine N/A Computed Tomogra phy 07/02/2024 1:08 PM CDT Narrative 07/02/2024 1:12 PM CDT EXAM DESCRIPTION: CT CERVICAL SPINE WO CONTRAST REASON FOR STUDY: Neck trauma (Age >= 65y) presents with complaints of fall this morning at 0500. Patient complains of pain to occipital area. Patient denies LOC. Patient denies neck pain. 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 No obvious deformities noted upon inspection. TECHNIQUE: Axial images through the cervical spine with sagittal and coronal reformatted images. Automated exposure control was used as a dose optimization technique for this examination. COMPARISON: None available FINDINGS: ALIGNMENT: Normal. VERTEBRAE: No fracture. Vertebral body heights well-maintained. DISCS: Severe degenerative changes C4 through T1 with loss of disc height, sclerosis, spur formation and facet hypertrophic changes. HARDWARE: None in the spine. INDIVIDUAL DISC LEVELS: No significant osseous canal stenosis. Right-sided neural foramina demonstrate bony narrowing C4-5, C5-6 primarily. Left-sided neural foramina demonstrate bony narrowing C4-5, C5-6 primarily. UPPER THORACIC: Incompletely imaged. No significant osseous spinal stenosis or osseous neural foraminal stenosis. SKULL BASE: No significant finding. LUNG APICES: Not included. NECK SOFT TISSUES: Extensive vascular calcifications at the carotid bifurcation regions. Please correlate for atherosclerotic disease. OTHER: No other significant findings. IMPRESSION: No acute C-spine abnormality. Moderately severe degenerative changes. Atherosclerotic changes carotid bifurcations. Please correlate clinically THIS IS AN ELECTRONICALLY VERIFIED FINAL REPORT 07/02/2024 1:12 PM - Electronically signed by Sylvester Leger M.D. RB: JOYCE Report ID: [id number] Reading Location: [id number] Procedure Note Sylvester Leger MD - 07/02/2024 EXAM DESCRIPTION: CT CERVICAL SPINE WO CONTRAST REASON FOR STUDY: Neck trauma (Age >= 65y) presents with complaints of fall this morning at 0500. Patient complainsof pain to occipital area. Patient denies LOC. 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 No obvious deformities noted upon inspection. TECHNIQUE: Axial images through the cervical spine with sagittal andcoronal reformatted images. Automated exposure control was used as a doseoptimization technique for this examination. COMPARISON: None available FINDINGS: ALIGNMENT: Normal. VERTEBRAE: No fracture. Vertebral body heights well-maintained. DISCS: Severe degenerative changes C4 through T1 with loss of discheight, sclerosis, spur formation and facet hypertrophic changes. HARDWARE: None in the spine. INDIVIDUAL DISC LEVELS: No significant osseous canal stenosis. Right-sided neural foramina demonstrate bony narrowing C4-5, C5-6primarily. Left-sided neural foramina demonstrate bony narrowing C4-5, C5-6primarily. UPPER THORACIC: Incompletely imaged. No significant osseous spinalstenosis or osseous neural foraminal stenosis. SKULL BASE: No significant finding. LUNG APICES: Not included. NECK SOFT TISSUES: Extensive vascular calcifications at the carotid bifurcation regions. Please correlate for atherosclerotic disease. OTHER: No other significant findings. IMPRESSION: No acute C-spine abnormality. Moderately severe degenerative changes. Atherosclerotic changes carotid bifurcations. Please correlateclinically THIS IS AN ELECTRONICALLY VERIFIED FINAL REPORT 07/02/2024 1:12 PM - Electronically signed by Sylvester Leger M.D. RB: JOYCE Report ID: [id number] Reading Location: [id number] Delano Tenorio MD IM CT PROCEDURES Viji l Result * CT Head WO Contrast (07/02/2024 11:48 AM CDT) Anatomical Region Laterality Modality Head and Neck N/A Computed Tomogra phy 07/02/2024 12:5 9 PM CDT Narrative 07/02/2024 1:05 PM CDT EXAM DESCRIPTION: CT HEAD WO CONTRAST REASON FOR STUDY: Head trauma, minor (Age >= 65y) presents with complaints of fall this morning at 0500. Patient complains of pain to occipital area. Patient denies LOC. Patient denies neck pain. 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 No obvious deformities noted upon inspection. TECHNIQUE: Axial images acquired through the brain without intravenous contrast. Images stored on PACS. Automated exposure control was used as a dose optimization technique for this examination. COMPARISON: None available FINDINGS: BRAIN: No hemorrhage, edema or mass effect. No recent infarct. Normal white matter. Cavum septum pellucidum incidentally demonstrated as a normal variation. EXTRA-AXIAL SPACES: No fluid collections. No masses. CALVARIUM: No fracture. SINUSES/MASTOIDS: No fluid or mucosal thickening. ORBITS: No significant abnormality. OTHER: No other significant abnormality. IMPRESSION: No acute intracranial findings. THIS IS AN ELECTRONICALLY VERIFIED FINAL REPORT 07/02/2024 1:05 PM - Electronically signed by Sylvester Leger M.D. RB: JOYCE Report ID: [id number] Reading Location: [id number] Procedure Note Sylvester Leger MD - 07/02/2024 EXAM DESCRIPTION: CT HEAD WO CONTRAST REASON FOR STUDY: Head trauma, minor (Age >= 65y) presents with complaints of fall this morning at 0500. Patient complainsof pain to occipital area. Patient denies LOC. 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 No obvious deformities noted upon inspection. TECHNIQUE: Axial images acquired through the brain without intravenous contrast. Images stored on PACS. Automated exposure control was used asa dose optimization technique for this examination. COMPARISON: None available FINDINGS: BRAIN: No hemorrhage, edema or mass effect. No recent infarct. Normal white matter. Cavum septum pellucidum incidentally demonstratedas a normal variation. EXTRA-AXIAL SPACES: No fluid collections. No masses. CALVARIUM: No fracture. SINUSES/MASTOIDS: No fluid or mucosal thickening. ORBITS: No significant abnormality. OTHER: No other significant abnormality. IMPRESSION: No acute intracranial findings. THIS IS AN ELECTRONICALLY VERIFIED FINAL REPORT 07/02/2024 1:05 PM - Electronically signed by Sylvester Leger M.D. RB: JOYCE Report ID: [id number] Reading Location: [place] [address] Delano Tenorio MD IMG CT PROCEDURES Viji l Result * (ABNORMAL) Troponin T high-sensitivity series (baseline, 2hr, 4hr, 6hr) (07/02/2024 11:31 AM CDT) Trop T hs 24(H) <=22 ng/L Comment: Interpretive Data For further hscTnT resources including the diagnostic algorithm and an aid in interpretation, copy and paste this link: https://nrl.testcatalog.org/show/hsTrop Current Interpretive Data last revised 2020. Testing performed by: [facility], [address] [place] [address]., [id number] Blood 07/02/2024 11:3 1 AM CDT 07/02/2024 11:51 AM CDT Delano Tenorio MD LAB BLOOD ORDERABLES F inal Result [place] [address] [facility] Department [place] [address] * Influenza A/B, RSV, and COVID-19 PCR Nasopharyngeal (07/02/2024 11:31 AM CDT) [facility] COVID-19 RNA Negative Negative Comment:Testing performed by : [address] [address] Influenza A RNA Negative Negative BRIAN Comment:Testing performed by : [address] [address] Influenza B RNA Negative Negative [facility] Comment:Testing performed by : [address] [address] RSV RNA Negative Negative [facility] Comment: Interpretive data: Testing performed by [facility]. This test is performed using the [employer] Xpert Xpress CoV-2/Flu/RSV plus assay. This is a multiplex, real-time reverse transcriptase PCR assay intended for the qualitative detection of nucleic acid from SARS-CoV-2, influenza A, influenza B, and respiratory syncytial virus. This assay has been cleared by the [place] Food and Drug administration. The performance characteristics have been verified by the [facility]. Results must be considered in the clinical context, and a negative result does not rule out infection. Interpretive Data last revised 2023 Testing performed by: [address] [address] Nasopharyngeal 07/02/2024 11 :31 AM CDT 07/02/2024 11:51 AM CDT Narrative BRIAN - 07/02/2024 12:41 PM CDT Is the Patient experiencing symptoms consistent with COVID?->Yes us Delano Tenorio MD LAB MICROBIOLOGY - GEN ERAL ORDERABLES Final Result BRIAN [address] [facility] Department of Laboratories [place], [place] [id number] * Sepsis Lactate w/ Reflex (07/02/2024 11:31 AM CDT) [facility] Sepsis Lactate 1.5 0.7 - 2.0 mmol/L Comment:Testing performed by : [address] [address] Blood 07/02/2024 11:3 1 AM CDT 07/02/2024 11:52 AM CDT Delano Tenorio MD LAB BLOOD ORDERABLES F inal Result Performing Organization Address [facility] Co de Phone Number BRIAN [address] [facility] [place] [address] * (ABNORMAL) eGFR (07/02/2024 11:31 AM CDT) eGFR 47(L) >=60 mL/min/1. 73 m2 Comment: Interpretive Data Reference Interval Normal >/= 90 mL/min/1.73m2 Mildly decreased* 60 - 89 mL/min/1.73m2 Mildly to moderately decreased 45 - 59 mL/min/1.73m2 Moderately to severely decreased 30 - 44 mL/min/1.73m2 Severely decreased 15 - 29 mL/min/1.73m2 Kidney Failure < 15 mL/min/1.73m2 *Relative to young adult level Estimated glomerular filtration rate is determined by the 2020 CKD-EPI equation recommended by the [employer] (A Unifying Approach to GFR Estimation: Recommendations of the NKF-ASK Task Force on Reassessing the Inclusion of Race in Diagnosing Kidney Disease, JASN 2020). The CKD-EPI equation should not be used for patients with unstable renal function and has not been validated in children and those over 70. Current interpretive data was last reviewed 2021. Testing performed by: [facility], [address] [place] [address]., [id number] Blood 07/02/2024 11:3 1 AM CDT 07/02/2024 11:51 AM CDT Delano Tenorio MD LAB BLOOD ORDERABLES F inal Result Performing Organization Address City/[facility]/ZIP Co de Phone Number BRIAN [address] [facility] [place] [address] * (ABNORMAL) Differential, auto (07/02/2024 11:31 AM CDT) Neutrophil abs 6.7(H) 1.5 - 6.5 K/cumm Comment:Testing performed by : [address], [place]., [address] Imm gran abs 0.0 0.0 - 0.1 K/cumm BRIAN Comment:Testing performed by : [address], [place]., [address] Lymphocyte abs 1.4 0.8 - 3.3 K/cumm BRIAN Comment:Testing performed by : [address] [address] Monocyte abs 1.0(H) 0.2 - 0.8 K/cumm [facility] Comment:Testing performed by : [address], [place]., [address] Eosinophil abs 0.0 0.0 - 0.5 K/cumm BRIAN Comment:Testing performed by : [address] [address] Basophil abs 0.0 0.0 - 0.1 K/cumm [facility] Comment:Testing performed by : [address] [address] Neutrophil pct 73.3 % [facility] Comment: Interpretive Data Percent cell count reference ranges are not reported, since discordance with absolute values may lead to misinterpretation of CBC data. Current Interpretive Data was last revised on 2017. Testing performed by: [address] [address] Imm gran pct 0.3 % [facility] Comment: Interpretive Data Percent cell count reference ranges are not reported, since discordance with absolute values may lead to misinterpretation of CBC data. Current Interpretive Data was last revised on 2017. Testing performed by: [address] [address] Lymphocyte pct 15.0 % CERNER Comment: Interpretive Data Percent cell count reference ranges are not reported, since discordance with absolute values may lead to misinterpretation of CBC data. Current Interpretive Data was last revised on 2017. Testing performed by: [address] [address] Monocyte pct 10.8 % CERNER Comment: Interpretive Data Percent cell count reference ranges are not reported, since discordance with absolute values may lead to misinterpretation of CBC data. Current Interpretive Data was last revised on 2017. Testing performed by: [address] [address] Eosinophil pct 0.2 % BRIAN Comment: Interpretive Data Percent cell count reference ranges are not reported, since discordance with absolute values may lead to misinterpretation of CBC data. Current Interpretive Data was last revised on 2017. Testing performed by: [address] [address] Basophil pct 0.4 % BRIAN Comment: Interpretive Data Percent cell count reference ranges are not reported, since discordance with absolute values may lead to misinterpretation of CBC data. Current Interpretive Data was last revised on 2017. Testing performed by: [address] [address] Blood 07/02/2024 11:3 1 AM CDT 07/02/2024 11:51 AM CDT us Delano Tenorio MD LAB BLOOD ORDERABLES F inal Result [facility] [address] [facility] [place] [address] * CBC with auto differential (07/02/2024 11:31 AM CDT) WBC 9.2 3.8 - 9.9 K/cumm Comment:Testing performed by : [address] [address] Hgb 14.2 13.0 - 17.5 g/dL BRIAN Comment:Testing performed by : [address] [address] Hct 42.5 38.9 - 50.3 % BRIAN Comment:Testing performed by : [address] [address] Plt 204 150 - 400 K/cumm BRIAN Comment:Testing performed by : [address] [address] MPV 11.3 9.1 - 12.3 fL BRIAN US Comment:Testing performed by : [facility], [address] [place] [address]., [address] RBC 4.85 4.30 - 5.80 M/cumm BRIAN US Comment:Testing performed by : [address] [address] MCV 87.6 81.3 - 96.4 fL BRIAN US Comment:Testing performed by : [address] [address] MCH 29.3 27.1 - 33.3 pg BRIAN Comment:Testing performed by : [address] [address] MCHC 33.4 32.3 - 35.7 g/dL BRIAN Comment:Testing performed by : [address] [address] RDW CV 12.6 11.1 - 14.9 % BRIAN Comment:Testing performed by : [address] [address] RDW SD 40.0 35.7 - 48.1 fL BRIAN Comment:Testing performed by : [address] [address] NRBC abs 0.00 0.00 - 0.01 K/cumm BRIAN Comment:Testing performed by : [address] [address] Blood 07/02/2024 11:3 1 AM CDT 07/02/2024 11:51 AM CDT us Delano Tenorio MD LAB BLOOD ORDERABLES F inal Result [facility] [address] [facility] Department [place] [address] * (ABNORMAL) Comprehensive metabolic panel (07/02/2024 11:31 AM CDT) Pathologist [facility] Sodium 134(L) 135 - 145 mmol/L Comment:Testing performed by : [address], [address] Potassium, pl 3.4 3.3 - 4.9 mmol/L [facility] Comment: Hemolyzed; Potassium value may be falsely elevated by as much as 1.0 mmol/L. Suggest redraw and reanalysis. Testing performed by: [address] [address] Chloride 94(L) 97 - 110 mmol/L [facility] Comment:Testing performed by : [address] [address] CO2 31 22 - 32 mmol/L [facility] Comment:Testing performed by : [address] [address] Anion gap 9 2 - 15 mmol/L [facility] Comment:Testing performed by : [address] [address] BUN 22 6 - 25 mg/dL [facility] Comment:Testing performed by : [address] [address] Creatinine 1.60(H) 0.80 - 1.30 mg/dL [facility] Comment:Testing performed by : [address] [address] Glucose 121 70 - 199 mg/dL [facility] Comment: Interpretive Data Fasting glucose >/= 126 mg/dl is diagnostic for diabetes. Fasting is defined as no caloric intake for at least 8 hours. Fasting glucose between 100 mg/dl to 125 mg/dl is diagnostic of prediabetes. In a patient with classic symptoms of hyperglycemia or hyperglycemic crisis, a random glucose >/= 200 mg/dl is diagnostic for diabetes. In the absence of unequivocal hyperglycemia, results should be confirmed by repeat testing. The classification and Diagnosis of Diabetes Diabetes Care 202; 46: S19-S40. Current interpretive data was last revised 2022. Testing performed by: [address] [address] Calcium 9.0 8.5 - 10.3 mg/dL [facility] Comment:Testing performed by : [address] [address] Bilirubin, total 0.5 0.1 - 1.2 mg/dL [facility] Comment:Testing performed by : [address] [place]., [address] Protein, pl 7.8 6.5 - 8.5 g/dL BRIAN US Comment:Testing performed by : [address] [address] Albumin 3.9 3.5 - 5.0 g/dL BRIAN US Comment:Testing performed by : [address] [address] Alk phos 97 40 - 130 Units/L BRIAN Comment:Testing performed by : [address] [address] ALT 34 7 - 55 Units/L BRIAN Comment:Testing performed by : [address], [address] AST 33 10 - 50 Units/L BRIAN Comment:Testing performed by : [address] [address] Blood 07/02/2024 11:3 1 AM CDT 07/02/2024 11:51 AM CDT us Delano Tenorio MD LAB BLOOD ORDERABLES F inal Result [facility] [address] [facility] Department [place] [address] * ECG 12 lead (07/02/2024 11:29 AM CDT) Ventricular Rate EKG/Min 70 BPM [facility] Atrial Rate 70 BPM [facility] AL-Interval (MSEC) 150 ms [facility] QRS-Interval (MSEC) 84 ms [facility] QT-Interval (MSEC) 408 ms [facility] QTc 440 ms [facility] P [place] 47 degrees [facility] R [place] 51 degrees [facility] T [place] 70 degrees [facility] Diagnosis Normal sinus rhythm Normal ECG When compared with ECG of 23-MAY-2018 11:10, No significant change was found Confirmed by VERO ARZOLA M.D. ([id number]) on 07/02/2024 1:01:06 PM [facility] 07/02/2024 11:2 9 AM CDT 07/02/2024 1:01 PM CDT us Delano Tenorio MD ECG ORDERABLES Final Result [facility] * CT Abdomen Pelvis WO Contrast (05/12/2016 1:42 PM BARREL CLEANER) Anatomical Region Laterality Modality Body N/A Computed Tomogra phy 05/12/2016 1:42 PM BARREL CLEANER Impressions 05/12/2016 2:49 PM BARREL CLEANER 1. No acute abdominal findings. 2. Diverticulosis without evidence of diverticulitis. 3. Contrast retained in the urinary bladder and minimally within the urinary collecting system may be indicative of renal failure and/or urinary retention. Correlate with postvoid residual of the urinary bladder and GFR. Automated exposure control was used as a dose optimization technique for this examination. THIS IS AN ELECTRONICALLY VERIFIED REPORT 05/12/2016 2:46 PM: Omar Bang M.D. Omar Bang M.D. TEREZA:tereza 02:46 PM 02:46 PM [facility] [EOD] Narrative 05/12/2016 2:49 PM BARREL CLEANER EXAMINATION: Non-IV contrast CT of the abdomen and pelvis. HISTORY: Suprapubic dull nonradiating pain that is getting worse and rectal bleeding today. Status post colonoscopy and polyps removal. Duration of symptoms is 2 days. History of COPD and stroke, heart disease. TECHNIQUE: Non-IV contrast CT of the abdomen and pelvis. Comparison with abdomen and pelvis CT from previous day that showed diverticulosis without active extravasation of blood and other chronic findings. FINDINGS: There is severe emphysema. Evaluation of the abdominal viscera is limited without IV contrast. The noncontrasted liver, pancreas, spleen, adrenals, kidneys, and gallbladder are unremarkable. There is vicarious secretion of contrast into the gallbladder. There is minimal retention of contrast from the previous day abdominal CT in the renal collecting system and distending the urinary bladder suggesting some amount of renal failure and possibly urinary retention. There is no free abdominal air , pneumatosis, or free fluid. No bowel dilation. No inflammatory changes of the bowel. The appendix is normal. There is diverticulosis without evidence of diverticulitis. No suspicious osseous lesions. Lumbar and thoracic degenerative intervertebral disc changes are again noted. Procedure Note Provider, MD Rachid - 08/28/2020 EXAMINATION: Non-IV contrast CT of the abdomen and pelvis. HISTORY: Suprapubic dull nonradiating pain that is getting worse andrectal bleeding today. Status post colonoscopy and polyps removal. Duration of symptoms is 2 days. History of COPD and stroke, heart disease. TECHNIQUE: Non-IV contrast CT of the abdomen and pelvis. Comparison with abdomen and pelvis CT from previous day that showed diverticulosis without active extravasation of blood and other chronic findings. FINDINGS: There is severe emphysema. Evaluation of the abdominal viscera is limited without IV contrast. The noncontrasted liver, pancreas, spleen, adrenals, kidneys, and gallbladderare unremarkable. There is vicarious secretion of contrast into thegallbladder. There is minimal retention of contrast from the previous day abdominal CTin the renal collecting system and distending the urinary bladder suggestingsome amount of renal failure and possibly urinary retention. There is no free abdominal air , pneumatosis, or free fluid. No bowel dilation. No inflammatory changes of the bowel. The appendix is normal. There is diverticulosis without evidence of diverticulitis. No suspicious osseous lesions. Lumbar and thoracic degenerativeintervertebral disc changes are again noted. IMPRESSION: 1. No acute abdominal findings. 2. Diverticulosis without evidence of diverticulitis. 3. Contrast retained in the urinary bladder and minimally within theurinary collecting system may be indicative of renal failure and/or urinaryretention. Correlate with postvoid residual of the urinary bladder and GFR. Automated exposure control was used as a dose optimization technique forthis examination. THIS IS AN ELECTRONICALLY VERIFIED REPORT 05/12/2016 2:46 PM: Omar Bang M.D. Omar Bang M.D. TEREZA:tereza 02:46 PM 02:46 PM [facility] [EOD] Joshua Tam MD IMG CT PROCEDURES Final Res ult from Last 3 Months or Most Recently Relevant to Health [place] [id number] MEDICARE [facility] Address: [facility] [address] [place] [address] [facility] PPO [place] [id number] [facility] REF [facility] MEDICARE HMO Advance Directives For more information, please contact: [phone] Documents on File Type Date Recorded Patient Hydrodynamicist Expl anation ADVANCE DIRECTIVE 07/06/2024 1:59 PM POLST - Phys Order for PT Preferences ADVANCE DIRECTIVE 07/06/2024 1:53 PM Power of Orthotics Prosthetics Assistant-Medical ADVANCE DIRECTIVE 05/28/2018 12:00 AM NANCY R OF APPLICATION SERVICES MANAGER FINANCIAL/MEDICAL * LIMITED - No CPR (Latest Code Status on File) Date Activated Date Inactivated Comments 07/02/2024 4:44 PM 07/08/2024 7:15 PM Question Answer Comments Provide aggressive medical m anagement before a full cardiopulmonary arrest occurs. Use antibiotics, IV Fluids, and medical treatment unless specifically selected below: No intubation Healthcare Agents on File Name Relationship Healthcare Agent Relationshi p Communication Fariba Ames Spouse Health Care Agent Care Teams Veneer Gluer Relationship Specialty Start Date End Date Henri Villareal MD [address] [place], [place] [id number] PCP - General Emergency Medicine 07/02/24
--- OUTSIDE RECORDS SUMMARY | 2024-08-17 09:32 | XMS_ITS | Encounter Summary ---
Author Organization [facility] Address [address] [place] [address] Care Team Providers Care Telephonic Nurse Case Manager Name Role Phone Henri Villareal MD Primary Care Provider [phone] Reason for Visit * Reason Onset Date Comments Patient is on the PUL: PNEUMONIA, 06/17/[address] Selvin perez Pneumonia 06/17/[address] O N [address] MCCARTY'S EXCHANGE # Encounter Details Date Type Department Care Team (Late st Contact Info) Description 06/17/2023 Telephone [facility] Admitting [address] [place] [address] [place] [address] [place] [address] Patient is on the PUL: PNEUMONIA, (Epic Secure chat to Dr. 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
--- OUTSIDE RECORDS SUMMARY | 2024-08-17 09:32 | XMS_ITS | Continuity of Care Document ---
Author Organization [facility] Address [address] [place] [phone] Phone Care Team Providers Care Rn Ortho Name Role Phone ERLIN DOWELL M.D. Unavailable Unavailable Procedures Procedure Date Drug Screen Routine 5 Panel Advance Directives Directive Yes / No Effective Date File Name No Information Encounters Encounter Description Practice Location Reason(s) For Visit Diagnoses Date Provider Providers Copied on Encounter [facility], [address] [place] [address], [id number], tel:[phone] [facility] No Information [phone] 3 DELMER KERN. [address] [place] [address], [id number], . tel:[phone] Family History Family Member Type Diagnosis Age At Onset No Information Payers Payer name Insurance type Covered green party ID Authoriza tion(s) No Information Social History Type Description Quantity Date Captured Comments Sex Male Smoking Status No Information Chief Complaint And Reason For Visit No Information Reason For Referral Reason For Referral No Information History Of Present Illness Encounter Date Complaint History Of Prese nt Illness No Information Functional Status Date Functional Assessmen t No Information Instructions Date Instruction Additional Infor mation No Information Assessments Type Assessment Date No Information Patient Care Teams Name Effective Dates (start - stop) Status Members No Information
--- OUTSIDE RECORDS SUMMARY | 2024-08-17 09:32 | XMS_ITS | Clinical Summary ---
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 4 Med Surg [address] [place] [address] Delano Tenorio MD Altwal, MD Bert George, MD Sofia Jacobson, Candelaria Bradley MD Fall, initial encounter (Primary Dx); Generalized weakness; Chronic obstructive pulmonary disease, unspecified COPD type (HCC); Pneumonia due to infectious organism, unspecified laterality, unspecified part of lung Discharge Disposition: Discharge to shelter facility from Last 3 Months Immunizations Immunization Administration Dates Next Due Influenza, Trivalent, High D ose, Split, Preservative Free, Intramuscular 07/05/2024 Surgical History Surgery Date Site/Laterality Comments APPENDECTOMY LUNG REMOVAL, PARTIAL CARPAL TUNNEL RELEASE 04/14/1973 - 04/13/1974 Left Medical History Medical History Date Comments COPD (chronic obstructive pulmonary disease) (HC C) Hyperlipemia Diarrhea Insomnia Hypertension Anxiety CVA, old, hemiparesis (HCC) 11/12/2014 righ t sided weakness Family History Medical History Relation Name Comments hemorrage Father cva Mother Cancer Sister Relation Name Status Comments Father Mother Sister Social History Tobacco Use Types Packs/Day Years Used Date Smoking Tobacco: Former Cigarettes 3 47 1 968 - 2015 Smokeless Tobacco: Never Tobacco Cessation:Counseling Given: No [facility] Utilities Answer Date Recorded In the past 12 months has e electric, gas, oil, or water company threatened to shut off services in your [...] 07/05/2024 How often do you attend chur ch or jain services? Never 07/05/2024 Do you belong to any clubs o r organizations such as restoration groups, unions, fraternal or athletic groups, or [...] any time in the past 12 [facility], were you homeless or living in a retirement (including now)? No 07/05/2024 Personal Safety Answer Date Recorded Have you ever been in or are you currently in a harmful physical or emotional relationship or is someone making you feel afraid or unsafe? 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[employer] Gender Identity Not on file Sexual Orientation Not on file Obstetrics History Last Filed Vital Signs Vital Sign Reading [...] 07/02/2024 5:21 PM CDT Plan of Treatment Health Maintenance Due Date Last Done Comments Colon Cancer Screening-Colonoscopy 1955 Depression Screening 1955 Hepatitis C Screening 1957 DTaP/Tdap/Td Vaccine (1 - Tdap) 01/24/1968 Hepatitis B Screening 1975 Pneumococcal vaccine 65+ (1 of 2 - PCV) 01/24/1976 Lung Cancer Screening 2007 Zoster Vaccine (1 of 2) 2007 Well Visit 65+ 2022 Covid-19 Vaccine ( - season) 2023, 08/28/2020 Fall Risk Assessment 07/08/2025 07/08/2024 Prostate Cancer Screening-PSA 07/06/2026 07/06/2024 Abdominal Aortic Aneurysm (A AA) Screen Completed 06/17/2023, 05/12/2016, 05/11/2016 Influenza Vaccine Completed 07/05/2024, , 02/18/2018 Procedures Procedure Name Priority Date/Time Associated Diagnosis [...] PELVIS WO CONTRAST Routine 05/12/2016 1:42 PM 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 Testing performed by: [facility], [address] [place] [address]., [address] Blood 07/06/2024 4:37 PM CDT 07/06/2024 4:44 PM CDT us Candelaria Wilson MD LAB BLOOD ORDERABLES Final Result Performing Organization Address City/[facility]/ZIP Co de Phone Number BRIAN [address] [facility] [place] [address] * Troponin T high-sensitivity (07/03/2024 4:49 AM CDT) Trop T hs 13 <=22 ng/L Comment: Interpretive Data For further hscTnT resources including the diagnostic algorithm and an aid in interpretation, copy and paste this link: https://nrl.testcatalog.org/show/hsTrop Current Interpretive Data last revised 2020. Testing performed by: [facility], [address] [place] [address]., [id number] Blood 07/03/2024 4:49 AM CDT 07/03/2024 5:22 AM CDT us Yaquelin Monreal NP LAB BLOOD ORDERABLES Final R esult Performing Organization Address City/[facility]/ZIP Co de Phone Number BRIAN [address] [facility] [place] [address] * eGFR (07/03/2024 4:49 AM CDT) eGFR [...] was last reviewed 2021. Testing performed by: [address] [address] Blood 07/03/2024 4:49 AM CDT 07/03/2024 5:22 AM CDT Yaquelin [place] NP LAB BLOOD ORDERABLES Final R esult Performing Organization Address [facility] Co de Phone Number [address] [facility] [place] [address] * Thyroid Function [place] (07/03/2024 4:49 AM CDT) TSH 0.62 0.30 - 4.20 mcIUnit/mL Comment:Testing performed by : [address] [address] Blood 07/03/2024 4:49 AM CDT 07/03/2024 5:22 AM CDT [facility] LAB BLOOD ORDERABLES Final R esult Performing Organization Address [facility] Co de Phone Number [address] [address] * CBC without differential (07/03/2024 4:49 AM CDT) WBC 8.4 3.8 - 9.9 K/cumm Comment:Testing performed by : [address] [address] Hgb 14.0 13.0 - 17.5 g/dL BRIAN US Comment:Testing performed by : [address] [address] Hct 41.5 38.9 - 50.3 % BRIAN US Comment:Testing performed by : [address] [address] Plt 208 150 - 400 K/cumm BRIAN US Comment:Testing performed by : [address] [address] MPV 11.3 9.1 - 12.3 fL BRIAN US Comment:Testing performed by : [address] [address] RBC 4.73 4.30 - 5.80 M/cumm BRIAN US Comment:Testing performed by : [address] [address] MCV 87.7 81.3 - 96.4 fL BRIAN Comment:Testing performed by : [address] [address] MCH 29.6 27.1 - 33.3 pg BRIAN Comment:Testing performed by : [address], [address] MCHC 33.7 32.3 - 35.7 g/dL BRINA Comment:Testing performed by : [address], [address] RDW CV 12.3 11.1 - 14.9 % BRIAN Comment:Testing performed by : [address], [address] RDW SD 39.5 35.7 - 48.1 fL BRIAN Comment:Testing performed by : [address], [address] NRBC abs 0.00 0.00 - 0.01 K/cumm BRIAN Comment:Testing performed by : [address] [address] Blood 07/03/2024 4:49 AM CDT 07/03/2024 5:21 AM CDT us Yaquelin Monreal NP LAB BLOOD ORDERABLES Final R esult [place] [address] [facility] [place] [address] * Magnesium (07/03/2024 4:49 AM CDT) Magnesium 2.1 1.4 - 2.5 mg/dL Comment:Testing performed by : [address] [address] Blood 07/03/2024 4:49 AM CDT 07/03/2024 5:22 AM CDT Gianni Noel MD LAB BLOOD ORDERABLES Fi nal Result [facility] [address] [facility] Department [place] [address] * Basic metabolic panel (07/03/2024 4:49 AM CDT) Sodium 136 135 - 145 mmol/L Comment:Testing performed by : [address] [address] Potassium, pl 3.4 3.3 - 4.9 mmol/L BRIAN Comment:Testing performed by : [address] [address] Chloride 98 97 - 110 mmol/L BRIAN Comment:Testing performed by : [address] [address] CO2 27 22 - 32 mmol/L BRIAN Comment:Testing performed by : [address] [address] Anion gap 11 2 - 15 mmol/L BRIAN Comment:Testing performed by : [address] [address] BUN 18 6 - 25 mg/dL RBIAN Comment:Testing performed by : [address] [address] Creatinine 1.10 0.80 - 1.30 mg/dL BRIAN Comment:Testing performed by : [address] [address] Glucose 158 70 - 199 mg/dL BRIAN [...] classification and Diagnosis of Diabetes Diabetes Care 2021; 46: S19-S40. Current interpretive data was last revised 2022. Testing performed by: [address] [address] Calcium 8.8 8.5 - 10.3 mg/dL BRIAN Comment:Testing performed by : [address] [address] Blood 07/03/2024 4:49 AM CDT 07/03/2024 5:22 AM CDT Yaquelin [place] NP LAB BLOOD ORDERABLES Final R esult Performing Organization Address City/[facility] Co de Phone Number BRIAN [address] [facility] [place] [address] * (ABNORMAL) Vitamin D 25 hydroxy (07/02/2024 4:43 PM CDT) Vitamin D 25-OH <6.0(L) 30.0 - 80.0 ng/mL Blood 07/02/2024 4:43 PM CDT 07/02/2024 8:33 PM CDT [facility] LAB BLOOD ORDERABLES Final R esult Performing Organization Address City/[facility]/ZIP Co de Phone Number [address] [facility] [place] [address] * (ABNORMAL) Urinalysis reflex to microscopic and culture Urine (07/02/2024 4:06 PM CDT) Color, ur Yellow Yellow Comment:Testing performed by : [address] [address] Clarity, ur Clear Clear BRIAN Comment:Testing performed by : [address] [address] Specific gravity, ur >1.050(A) 1.003 - 1.030 BRINA Comment:Testing performed by : [facility], [address] [place] [address], [place]., [address] pH, urine 5.5 BRIAN Comment: Interpretive Data U rine pH is affected by diet, medications, systemic acid-base disturbances, and renal tubular function. pH may affect urinary stone formation. For example, urine pH below 6.0 may help reduce the tendency for calcium phosphate stones and pH greater than 6.0 may reduce the tendency for uric acid stone formation. Source: [facility] Current Interpretive Data was last revised on 2017 Testing performed by: [facility], [address] [place] [address], [place]., [address] Protein, ur ql 1+(A) Negative BRIAN Comment:Testing performed by : [address], [place]., [address] Glucose, ur ql Negative Negative BRIAN Comment:Testing performed by : [address], [place]., [address] Ketones, ur Negative Negative BRIAN Comment:Testing performed by : [address], [place]., [address] Bilirubin, ur Negative Negative BRIAN Comment:Testing performed by : [address], [place]., [address] Blood, ur 1+(A) Negative BRIAN Comment:Testing performed by : [address], [place]., [address] Urobilinogen, ur <2.0 <2.0 mg/dL BRIAN Comment:Testing performed by : [address], [place]., [address] Nitrite, ur Negative Negative BRIAN Comment:Testing performed by : [address], [place]., [address] Leukocyte esterase, ur Negative Negative BRIAN Comment:Testing performed by : [address], [place]., [address] UA reflex comment Reflex to microscopic UA will be performed. BRIAN Comment:Testing performed by : [address], [place]., [address] Urine 07/02/2024 4:06 PM CDT 07/02/2024 4:10 PM CDT Delano Tenorio MD LAB MICROBIOLOGY - GEN ERAL ORDERABLES Final Result Performing Organization Address [facility] Co de Phone Number BRIAN [address] [facility] [place] [address] * (ABNORMAL) Urinalysis, microscopic only (07/02/2024 4:06 PM CDT) WBC, ur 0-5 0 - 5 /HPF Comment:Testing performed by : [address] [address] RBC, ur 3-5(A) 0 - 2 /HPF BRIAN Comment:Testing performed by : [address] [address] Epithelial cells, squamous, ur 1-5 0 - 5 /HPF BRIAN Comment:Testing performed by : [address] [address] Mucous, ur Present(A) BRIAN Comment:Testing performed by : [address] [address] Culture Reflex Comment Reflex conditions for urine culture (WBC >10) not met. BRIAN Comment:Testing performed by : [address] [address] Urine 07/02/2024 4:06 PM CDT 07/02/2024 4:10 PM CDT Delano Tenorio MD LAB URINE ORDERABLES F inal Result Performing Organization Address City/[facility]/ZIP Co de Phone Number BRIAN [address] [facility] Department [place] [address] * Blood culture Blood Peripheral (07/02/2024 3:58 PM CDT) Report Final Report: No growth Comment:Testing performed by : [facility], [address] [facility]., [address] Blood (Peripheral) 07/02/2024 3:58 PM CDT 07/02/2024 7:33 PM CDT Narrative BRIAN US - 07/07/2024 7:00 AM CDT From a [...] performance characteristics have been verified by the [facility] Microbiology Laboratory. For questions about this culture, contact the Microbiology Laboratory at [phone]. Interpretive data was last revised on 24. Delano Tenorio MD LAB MICROBIOLOGY - GEN ERAL ORDERABLES Final Result BRIAN US [address] [facility] Department [place] [address] * Blood culture Blood Peripheral (07/02/2024 3:50 PM CDT) Report Final Report: No growth Comment:Testing performed by : [facility], [address] [facility]., [address] Blood (Peripheral) 07/02/2024 3:50 PM CDT 07/02/2024 7:34 PM CDT Elva CHANGRAYSON US - 07/07/2024 7:00 AM CDT Draw [...] performance characteristics have been verified by the [facility] Microbiology Laboratory. For questions about this culture, contact the Microbiology Laboratory at [phone]. Interpretive data was last revised on 24. us Delano Tenorio MD LAB MICROBIOLOGY - GEN ERAL ORDERABLES Final Result BRIAN [address] [facility] Department [place] [address] * CT Chest PE (CTA) Abdomen Pelvis [...] Darrell Boggs M.D. TEREZA: TEREZA Report ID: [id number] Reading Location: [id number] Procedure Note Ap Boggs MD - 07/02/2024 [...] Darrell Boggs M.D. TEREZA: TEREZA Report ID: [id number] Reading Location: [place] [address] us Delano Tenorio MD IMG CT PROCEDURES Viji l Result * Troponin T high-sensitivity 2-hour (07/02/2024 1:06 PM CDT) Pathologist [facility] Trop T hs 22 <=22 ng/L Comment: Interpretive Data For further hscTnT resources including the diagnostic algorithm and an aid in interpretation, copy and paste this link: https://nrl.testcatalog.org/show/hsTrop Current Interpretive Data last revised 2020. Testing performed by: [address] [address] Trop T hs delta -2 ng/L BRIAN US Comment:Testing performed by : [address] [address] Trop T hs interp Insignificant BRIAN US Comment:Testing performed by : [address] [address] Blood 07/02/2024 1:06 PM CDT 07/02/2024 1:12 PM CDT Delano Tenorio MD LAB BLOOD ORDERABLES F inal Result BRIAN [address] [facility] Department [place] [address] * Pro B-type natriuretic peptide (07/02/2024 1:06 PM CDT) Pathologist [facility] NT-proBNP 158 <=300 pg/mL Comment: Interpretive Comments: [...] et.al. Eur Heart J. 2006:27:330-337. 2. Nanda RW, Jatin AM. J. AM Wai Cardiol: Cardiovasc Imag. 2009;2: 216- 225. Interpretive Data Last Revised Date: 2017. Testing performed by: [facility], [address] [place] [address]., [address] Blood 07/02/2024 1:06 PM CDT 07/02/2024 1:12 PM CDT us Jose Reynolds MD LAB BLOOD ORDERABLES Final Result BRIAN [address] [facility] Department [place] [address] * Phosphorus (07/02/2024 1:06 PM CDT) [facility] Phosphorus, pl 3.3 2.3 - 4.5 mg/dL Comment:Testing performed by : [address] [address] Blood 07/02/2024 1:06 PM CDT 07/02/2024 1:12 PM CDT Jose Reynolds MD LAB BLOOD ORDERABLES Final Result Performing Organization Address [facility] Co de Phone Number CHAN[address] [address] * Magnesium (07/02/2024 1:06 PM CDT) Pathologist [facility] Magnesium 2.0 1.4 - 2.5 mg/dL Comment:Testing performed by : [address] [address] Blood 07/02/2024 1:06 PM CDT 07/02/2024 1:12 PM CDT Jose Reynolds MD LAB BLOOD ORDERABLES Final Result Performing Organization Address [facility] Co de Phone Number [address] [address] * Vitamin B12 (07/02/2024 1:06 PM CDT) Pathologist [facility] Vitamin B12 365 230 - 1,250 pg/mL Comment:Testing performed by : [facility], [address] [place] [address]., [address] Blood 07/02/2024 1:06 PM CDT 07/02/2024 1:12 PM CDT Jose Reynolds MD LAB BLOOD ORDERABLES Final Result Performing Organization Address [facility] Co de Phone Number [address] [address] * XR Hip Right 2 or 3 [...] Electronically signed by Sylvester Leger M.D. RB: RB Report ID: [id number] Reading Location: [id number] Procedure Note Sylvester Leger MD - 07/02/2024 [...] Electronically signed by Sylvester Leger M.D. RB: RB Report ID: [id number] Reading Location: [id number] us Delano Tenorio MD IMG XR PROCEDURES [...] Electronically signed by Sylvester Leger M.D. RB: RB Report ID: [id number] Reading Location: [id number] Procedure Note Sylvester Leger MD - 07/02/2024 [...] Electronically signed by Sylvester Leger M.D. RB: RB Report ID: [id number] Reading Location: [id number] us Delano Tenorio MD IMG XR PROCEDURES [...] Sylvester Leger M.D. RB: JOYCE Report ID: [id number] Reading Location: [id number] Procedure Note Sylvester Leger MD - 07/02/2024 [...] Sylvester Leger M.D. RB: JOYCE Report ID: [id number] Reading Location: [place] [address] Delano Tenorio MD IMG CT PROCEDURES Viji l Result * CT [...] Electronically signed by Sylvester Leger M.D. RB: RB Report ID: [id number] Reading Location: [place] [address] Procedure Note Sylvester Leger MD - 07/02/2024 [...] Electronically signed by Sylvester Leger M.D. RB: RB Report ID: [id number] Reading Location: [id number] Delano Tenorio MD IMG CT PROCEDURES Viji l Result * (ABNORMAL) Troponin T high-sensitivity series (baseline, 2hr, 4hr, 6hr) (07/02/2024 11:31 AM CDT) Pathologist [facility] Trop T hs 24(H) <=22 ng/L Comment: Interpretive Data For further hscTnT resources including the diagnostic algorithm and an aid in interpretation, copy and paste this link: https://nrl.testcatalog.org/show/hsTrop Current Interpretive Data last revised 2020. Testing performed by: [address] [address] Blood 07/02/2024 11:3 1 AM CDT 07/02/2024 11:51 AM CDT Delano Tenorio MD LAB BLOOD ORDERABLES F inal Result [facility] [address] [facility] Department [place] [address] * Influenza A/B, RSV, and COVID-19 PCR Nasopharyngeal (07/02/2024 11:31 AM CDT) [facility] COVID-19 RNA Negative Negative Comment:Testing performed by : [address] [address] Influenza A RNA Negative Negative BRIAN Comment:Testing performed by : [address] [address] Influenza B RNA Negative Negative BRIAN Comment:Testing performed by : [address] [address] RSV RNA Negative Negative BRIAN Comment: Interpretive data: Testing performed by [facility]. This test is performed using the [employer] Xpert Xpress CoV-2/Flu/RSV plus assay. This is a multiplex, real-time reverse transcriptase PCR assay intended for the qualitative detection of nucleic acid from SARS-CoV-2, influenza A, influenza B, and respiratory syncytial virus. This assay has been cleared by the [place] Food and Drug administration. The performance characteristics have been verified by the [facility]. Results must be considered in the clinical context, and a negative result does not rule out infection. Interpretive Data last revised 2023 Testing performed by: [address] [address] Nasopharyngeal 07/02/2024 11 :31 AM CDT 07/02/2024 11:51 AM CDT Narrative [facility] - 07/02/2024 12:41 PM CDT Is the Patient experiencing symptoms consistent with COVID?->Yes Delano Tenorio MD LAB MICROBIOLOGY - GEN ERAL ORDERABLES Final Result Performing Organization Address [facility] Co de Phone Number [address] [employer] [address] * Sepsis Lactate w/ Reflex (07/02/2024 11:31 AM CDT) [facility] Sepsis Lactate 1.5 0.7 - 2.0 mmol/L Comment:Testing performed by : [address] [address] Blood 07/02/2024 11:3 1 AM CDT 07/02/2024 11:52 AM CDT Delano Tenorio MD LAB BLOOD ORDERABLES F inal Result Performing Organization Address [facility] Co de Phone Number [place] [phone] [facility] [place] [address] * (ABNORMAL) eGFR (07/02/2024 11:31 AM CDT) [facility] eGFR 47(L) >=60 mL/min/1. 73 m2 Comment: [...] was last reviewed 2021. Testing performed by: [address] [address] Blood 07/02/2024 11:3 1 AM CDT 07/02/2024 11:51 AM CDT us Delano Tenorio MD LAB BLOOD ORDERABLES F inal Result [facility] [address] [facility] [place] [address] * (ABNORMAL) Differential, auto (07/02/2024 11:31 AM CDT) Neutrophil abs 6.7(H) 1.5 - 6.5 K/cumm Comment:Testing performed by : [address] [address] Imm gran abs 0.0 0.0 - 0.1 K/cumm BRIAN Comment:Testing performed by : [address] [address] Lymphocyte abs 1.4 0.8 - 3.3 K/cumm BRIAN Comment:Testing performed by : [address] [address] Monocyte abs 1.0(H) 0.2 - 0.8 K/cumm BRIAN Comment:Testing performed by : [address] [address] Eosinophil abs 0.0 0.0 - 0.5 K/cumm BRIAN Comment:Testing performed by : [address] [address] Basophil abs 0.0 0.0 - 0.1 K/dontrellm BRIAN Comment:Testing performed by : [address] [address] Neutrophil pct 73.3 % BRIAN Comment: Interpretive Data Percent cell count reference ranges are not reported, since discordance with absolute values may lead to misinterpretation of CBC data. Current Interpretive Data was last revised on 2017. Testing performed by: [address] [address] Imm gran pct 0.3 % BRIAN Comment: Interpretive Data Percent cell count reference ranges are not reported, since discordance with absolute values may lead to misinterpretation of CBC data. Current Interpretive Data was last revised on 2017. Testing performed by: [address] [address] Lymphocyte pct 15.0 % [facility] Comment: Interpretive Data Percent cell count reference ranges are not reported, since discordance with absolute values may lead to misinterpretation of CBC data. Current Interpretive Data was last revised on 2017. Testing performed by: [address] [address] Monocyte pct 10.8 % [facility] Comment: Interpretive Data Percent cell count reference ranges are not reported, since discordance with absolute values may lead to misinterpretation of CBC data. Current Interpretive Data was last revised on 2017. Testing performed by: [address] [address] Eosinophil pct 0.2 % BRIAN Comment: Interpretive Data Percent cell count reference ranges are not reported, since discordance with absolute values may lead to misinterpretation of CBC data. Current Interpretive Data was last revised on 2017. Testing performed by: [address] [address] Basophil pct 0.4 % BRIAN Comment: Interpretive Data Percent cell count reference ranges are not reported, since discordance with absolute values may lead to misinterpretation of CBC data. Current Interpretive Data was last revised on 2017. Testing performed by: [address] [address] Blood 07/02/2024 11:3 1 AM CDT 07/02/2024 11:51 AM CDT us Delano Tenorio MD LAB BLOOD ORDERABLES F inal Result [facility] [address] [facility] Department of Laboratories [place] [address] * CBC with auto differential (07/02/2024 11:31 AM CDT) WBC 9.2 3.8 - 9.9 K/cumm Comment:Testing performed by : [address] [address] Hgb 14.2 13.0 - 17.5 g/dL BRIAN Comment:Testing performed by : [address] [address] Hct 42.5 38.9 - 50.3 % BRIAN Comment:Testing performed by : [address] [address] Plt 204 150 - 400 K/cumm BRIAN Comment:Testing performed by : [address] [address] MPV 11.3 9.1 - 12.3 fL BRIAN Comment:Testing performed by : [address] [address] RBC 4.85 4.30 - 5.80 M/cumm BRIAN US Comment:Testing performed by : [address] [address] MCV 87.6 81.3 - 96.4 fL BRIAN US Comment:Testing performed by : [address] [address] MCH 29.3 27.1 - 33.3 pg BRIAN US Comment:Testing performed by : [address] [address] MCHC 33.4 32.3 - 35.7 g/dL BIRAN US Comment:Testing performed by : [address] [address] RDW CV 12.6 11.1 - 14.9 % BRIAN US Comment:Testing performed by : [address] [address] RDW SD 40.0 35.7 - 48.1 fL BRIAN US Comment:Testing performed by : [address] [address] NRBC abs 0.00 0.00 - 0.01 K/cumm BRIAN US Comment:Testing performed by : [address] [address] Blood 07/02/2024 11:3 1 AM CDT 07/02/2024 11:51 AM CDT us Delano Tenorio MD LAB BLOOD ORDERABLES F inal Result BRIAN [address] [facility] Department [place] [address] * (ABNORMAL) Comprehensive metabolic panel (07/02/2024 11:31 AM CDT) Sodium 134(L) 135 - 145 mmol/L Comment:Testing performed by : [address] [address] Potassium, pl 3.4 3.3 - 4.9 mmol/L BRIAN US Comment: Hemolyzed; Potassium value may be falsely elevated by as much as 1.0 mmol/L. Suggest redraw and reanalysis. Testing performed by: [address] [address] Chloride 94(L) 97 - 110 mmol/L BRIAN US Comment:Testing performed by : [address] [address] CO2 31 22 - 32 mmol/L BRIAN US Comment:Testing performed by : [address] [address] Anion gap 9 2 - 15 mmol/L BRIAN US Comment:Testing performed by : [address] [address] BUN 22 6 - 25 mg/dL BRIAN Comment:Testing performed by : [address] [address] Creatinine 1.60(H) 0.80 - 1.30 mg/dL BRIAN Comment:Testing performed by : [address] [address] Glucose 121 70 - 199 mg/dL BRIAN Comment: Interpretive [...] classification and Diagnosis of Diabetes Diabetes Care 2021; 46: S19-S40. Current interpretive data was last revised 2022. Testing performed by: [address] [address] Calcium 9.0 8.5 - 10.3 mg/dL BRIAN Comment:Testing performed by : [address] [address] Bilirubin, total 0.5 0.1 - 1.2 mg/dL BRIAN Comment:Testing performed by : [address] [address] Protein, pl 7.8 6.5 - 8.5 g/dL BRIAN Comment:Testing performed by : [address] [address] Albumin 3.9 3.5 - 5.0 g/dL [facility]:Testing performed by : [address] [address] Alk phos 97 40 - 130 Units/L BRIAN Comment:Testing performed by : [address] [address] ALT 34 7 - 55 Units/L BRIAN Comment:Testing performed by : [address] [address] AST 33 10 - 50 Units/L BRIAN US Comment:Testing performed by : [facility], [address] [place] [address], [place]., [address] Blood 07/02/2024 11:3 1 AM CDT 07/02/2024 11:51 AM CDT Delano Tenorio MD LAB BLOOD ORDERABLES F inal Result Performing Organization Address [facility] Co de Phone Number BRIAN [address] [facility] Department [place] [address] * ECG 12 lead (07/02/2024 11:29 AM CDT) Pathologist [facility] Ventricular Rate EKG/Min 70 BPM [facility] Atrial Rate 70 BPM [facility] MA-Interval (MSEC) 150 ms [facility] QRS-Interval (MSEC) 84 ms [facility] QT-Interval (MSEC) 408 ms [facility] QTc 440 ms [facility] P [place] 47 degrees [facility] R [place] 51 degrees [facility] T [place] 70 degrees [facility] Diagnosis Normal sinus rhythm Normal ECG When compared with ECG of 23-MAY-2018 11:10, No significant change was found Confirmed by VERO ARZOLA M.D. ([id number]) on 07/02/2024 1:01:06 PM [facility] 07/02/2024 11:2 9 AM CDT 07/02/2024 1:01 PM CDT Delano Tenorio MD ECG ORDERABLES Final Result Performing Organization Address [facility] Co de Phone Number [employer] [facility] * CT Abdomen Pelvis WO Contrast (05/12/2016 1:42 PM REPROGRAPHICS ASSOCIATE) Anatomical Region Laterality Modality Body N/A Computed Tomogra phy 05/12/2016 1:42 PM REPROGRAPHICS ASSOCIATE Impressions 05/12/2016 2:49 PM REPROGRAPHICS ASSOCIATE 1. No acute abdominal findings. 2. Diverticulosis [...] Bang M.D. TEREZA:tereza 02:46 PM 02:46 PM [facility] [EOD] Narrative 05/12/2016 2:49 PM REPROGRAPHICS ASSOCIATE EXAMINATION: Non-IV contrast CT of the abdomen [...] Bang M.D. TEREZA:tereza 02:46 PM 02:46 PM [facility] [EOD] Joshua Tam MD [facility] CT PROCEDURES Final Res ult from Last 3 Months or Most Recently Relevant to Health Maintenance [place] [address] [address] [facility] [address] [facility] [place] [address] [facility] MEDICARE HMO Advance Directives For more information, please contact: [phone] Documents on File Type Date Recorded Patient Layout Technician Expl anation ADVANCE DIRECTIVE 07/06/2024 1:59 PM POLST - Phys Order for PT Preferences ADVANCE DIRECTIVE 07/06/2024 1:53 PM Power of Filtering Machine Tender-Medical ADVANCE DIRECTIVE 05/28/2018 12:00 AM NANCY R OF [employer]/MEDICAL * LIMITED - No CPR (Latest Code Status on File) Date Activated Date Inactivated Comments 07/02/2024 4:44 PM 07/08/2024 7:15 PM Question Answer Comments Provide aggressive medical m anagement before a full cardiopulmonary arrest occurs. 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
== END 2024-08-17 09:04 | disposition home or self-care (01) ==
PROVIDERS: PCP Emergency Medicine; Visit Provider Nurse Practitioner Family
DX: Z12.2 Encounter for screening for malignant neoplasm of respiratory organs (principal); Z87.891 Personal history of nicotine dependence
CPT/HCPCS: 71271